=== PATIENT | female | born 2000 | race Caucasian/White ===

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

== ENCOUNTER → 2021-01-14 | Outpatient (CLI) | payer OTHER ==
[~2021-01-14] MED LIST changes: +METHACHOLINE KIT (J7674) INH ONE
--- NOTE | 2021-01-14 08:16 | PFTRPT ---
Height: 62.50 Inches Weight: 235.00 Lbs BSA: 2.06 Diagnosis: R06.02 DATE: 01/14/2021 ORDERED BY: Geetha Sheffield NP QUALITY: Study of excellent technical quality. PROCEDURE: Under protocol, methacholine was administered. At a dose of 2.5 mg or 13.875 CDUs, a 20% decline in the FEV1 was noted. PC of 2.17 is significant. Flow rates did return to baseline post bronchodilator administration. IMPRESSION: Positive methacholine challenge study. MTDD
--- NOTE | 2021-01-14 09:05 | REP ---
INDICATION: OTH ABN FINDINGS OF LUNG FIELD PT HAS METH 1ST THEN CT COMPARISON: None TECHNIQUE: Axial noncontrast images from the thoracic inlet to the upper abdomen with coronal and sagittal reformations. This CT examination was performed using the following dose reduction techniques: Automated exposure control, adjustment of mA and/or kv according to the patient's size, and use of iterative reconstruction technique. FINDINGS: The bilateral lung dawkins are well aerated, symmetric, and clear. No acute consolidation, nodule or mass. No pleural effusion or pneumothorax. Tracheobronchial tree is patent. No adenopathy. Thoracic aorta, pulmonary vasculature, and heart/pericardium appear normal. Surrounding musculoskeletal structures are intact. Limited upper abdomen demonstrates normal bilateral adrenal glands. IMPRESSION: No acute mediastinal or pleuroparenchymal process appreciated. <Electronically signed by Thomas Champion > 01/14/21 0902
== END ==
LOC: M CARPUL 07:36
PROVIDERS: ATTEND Nurse Practitioner Adult Health
DX: R06.02 Shortness of breath (principal); R91.8 Other nonspecific abnormal finding of lung field
CPT/HCPCS: 71250; 94070; 95070; J7674

== ENCOUNTER → 2021-02-26 | Outpatient (REF) | payer OTHER ==
[~2021-02-26] MED LIST changes: -METHACHOLINE KIT (J7674) INH ONE
== END ==
LOC: M LAB REF 19:41
PROVIDERS: ATTEND Physician Assistant
DX: N39.0 Urinary tract infection, site not specified (principal)

== ENCOUNTER → 2021-04-17 | Outpatient (CLI) | payer OTHER ==
--- NOTE | 2021-04-17 10:16 | REP ---
INDICATION: N92.6 IRREG MENSES. COMPARISON: None. TECHNIQUE: Multiple ultrasonographic images of the pelvis including transabdominal, endovaginal and Doppler assessment. FINDINGS: Bladder is adequately distended. The uterus is normal size measuring 8.9 x 2.9 x 3.3 cm. There is a 1 cm fibroid in the uterine fundus on the left. On transvaginal images a nova ring is identified surrounding the cervix. Right ovary: The right ovary measures 2.6 x 2.2 x 1.8 cm. There is no dominant mass or cyst. Left ovary: The left ovary measures 4.1 x 1.8 x 2.0 cm. There is no dominant mass or cyst. There is vascular flow in both ovaries. The Doppler resistive index in the parenchymal arteries of the right ovary 0.62 and left ovary 0.59. No free fluid in the pelvis. IMPRESSION: 1 cm uterine fibroid in the fundus on the left. There is an oval ring surrounding the cervix. The endometrium is unremarkable. Otherwise, negative pelvic ultrasound. <Electronically signed by Chele Lim > 04/17/21 1015
== END ==
LOC: M WHC 08:10
PROVIDERS: ATTEND Advanced Practice Midwife
DX: N92.6 Irregular menstruation, unspecified (principal); D25.9 Leiomyoma of uterus, unspecified; Z97.5 Presence of (intrauterine) contraceptive device

== ENCOUNTER → 2021-05-05 | Outpatient (CLI) | payer OTHER ==
[2021-05-05 18:09] LABS: HEMATOCRIT 41.8 % (36.0-47.0); HEMOGLOBIN 13.6 g/dl (12.0-15.5); MEAN CORPUSCULAR HEMOGLOBIN 27.8 pg (27.0-33.0); MEAN CORPUSCULAR HGB CONC 32.5 g/dl (32.0-36.5); MEAN CORPUSCULAR VOLUME 85.3 fl (80.0-96.0); PLATELET COUNT, AUTOMATED 374 10^3/uL (150-450); WHITE BLOOD COUNT 12.3 10^3/uL (4.0-10.0)
[2021-05-05 18:30] LABS: ALBUMIN 2.9 GM/DL (3.2-5.2); ALT/SGPT 17 U/L (12-78); BILIRUBIN,TOTAL 0.5 MG/DL (0.2-1.0); BLOOD UREA NITROGEN 12 MG/DL (7-18); CALCIUM LEVEL 9.1 MG/DL (8.5-10.1); CARBON DIOXIDE LEVEL 26 MEQ/L (21-32); CHLORIDE LEVEL 108 MEQ/L (98-107); CREATININE FOR GFR 0.72 MG/DL (0.55-1.30); GLUCOSE, FASTING 75 MG/DL (70-100); LIPASE 51 U/L (73-393); SODIUM LEVEL 139 MEQ/L (136-145); TOTAL PROTEIN 6.9 GM/DL (6.4-8.2)
== END ==
LOC: M LAB 16:45
PROVIDERS: ATTEND Physician Assistant
DX: R10.11 Right upper quadrant pain (principal); R19.7 Diarrhea, unspecified
CPT/HCPCS: 36415; 80053; 83690; 85027; U0003

== ENCOUNTER → 2021-05-07 | Outpatient (CLI) | payer OTHER ==
--- NOTE | 2021-05-07 07:57 | REP ---
INDICATION: RUQ PAIN. COMPARISON: COMPARISON IS MADE WITH IMAGES FROM CHEST CT JANUARY 14, 2021. TECHNIQUE: RIGHT UPPER QUADRANT SONOGRAPHY. FINDINGS: Scanning through the right upper quadrant of the abdomen demonstrates a normal sized, thin-walled gallbladder without evidence of stone or polyp. Common bile duct is normal measuring 4.6 cm in greatest diameter. No focal liver lesion is seen. Liver size is normal. No pancreatic abnormality is observed. No right renal abnormality is seen. There is no evidence of ascites. The right kidney measures 10.1 X 5.4 X 4.4 cm. IMPRESSION: Negative right upper quadrant sonography. <Electronically signed by Chip Paulino > 05/07/21 0756
== END ==
LOC: M RAD 06:42
PROVIDERS: ATTEND Physician Assistant
DX: R10.11 Right upper quadrant pain (principal)

== ENCOUNTER → 2021-05-13 | Outpatient (CLI) | payer OTHER ==
[~2021-05-13] MED LIST changes: +GASTROGRAFIN SOLUTION 30ML (Q9963) As Ordered ONE; +ISOVUE-370 76% 100ML VIAL As Ordered ONE
--- NOTE | 2021-05-13 14:06 | REP ---
INDICATION: RUQ PAIN COMPARISON: None. TECHNIQUE: CT Scan of the abdomen and pelvis was performed with intravenous administration of 100 cc of Isovue 370, and oral contrast. Sagittal and coronal reconstruction images are performed. FINDINGS: Lung bases: Unremarkable. Liver: Normal Gallbladder: Unremarkable. Spleen: Normal. Adrenals: Normal. Pancreas: Normal. Kidneys: Normal. Small and large bowel: Unremarkable. Free fluid: None. Abdominal aorta: No aneurysm or dissection. Adenopathy: None. Appendix: Not inflamed. Osseous structures: Unremarkable. Pelvis: No mass. Vaginal ring pessary is noted. IMPRESSION: Negative CT abdomen and pelvis. <Electronically signed by Chele Pabon > 05/13/21 0016
== END ==
LOC: M RAD 11:59
PROVIDERS: ATTEND Physician Assistant
DX: R10.11 Right upper quadrant pain (principal)
CPT/HCPCS: 74177; Q9963; Q9967

== ENCOUNTER → 2021-06-23 | Outpatient (CLI) | payer OTHER ==
[~2021-06-23] MED LIST changes: -GASTROGRAFIN SOLUTION 30ML (Q9963) As Ordered ONE; -ISOVUE-370 76% 100ML VIAL As Ordered ONE
--- NOTE | 2021-06-23 10:40 | REP ---
INDICATION: RUQ ABD PAIN. COMPARISON: Ultrasound 05/07/2021. TECHNIQUE/RADIOTRACER AND DOSE: FOLLOWING THE INTRAVENOUS ADMINISTRATION OF 6.4 MCI TECHNETIUM 99 M-MEBROFENIN, MULTIPLE IMAGES OF THE RIGHT UPPER QUADRANT ARE PERFORMED FOR 60 MINUTES. NEXT 8 OZ OF ENSURE ENLIVE IS INGESTED AND FURTHER IMAGING IS PERFORMED FOR 65 MINUTES. FINDINGS: THE GALLBLADDER IS VISUALIZED AT 15 MINUTES POST INJECTION. THERE IS BILIARY TO BOWEL TRANSIT AT 10MINUTES POST INJECTION. THERE IS NO SCINTIGRAPHIC EVIDENCE OF CHOLECYSTITIS. GALLBLADDER EJECTION FRACTION IS CALCULATED TO BE 18% WHICH IS below NORMAL value of greater than 35%. IMPRESSION: Low gallbladder ejection fraction of 18%. <Electronically signed by Chele Pabon > 06/23/21 0214
== END ==
LOC: M RAD 08:05
PROVIDERS: ATTEND Physician Assistant
DX: R10.11 Right upper quadrant pain (principal); K82.8 Other specified diseases of gallbladder
CPT/HCPCS: 78227; A9537

== ENCOUNTER → 2021-07-19 | Outpatient (CLI) | payer OTHER ==
[~2021-07-19] MED LIST changes: +ARNU1INH IN; +PROAAER10 INH; +SERT-141 PO
== END ==
LOC: M LABSMTC 10:04
PROVIDERS: ATTEND Anesthesiology
DX: Z01.812 Encounter for preprocedural laboratory examination (principal); Z20.822 Contact with and (suspected) exposure to COVID-19

== ENCOUNTER 2021-07-24 10:20 | Day surgery (SDC) | payer OTHER ==
[~2021-07-24] VITALS: Ht 157.5 cm; Wt 105.7 kg
[~2021-07-24 10:20] MED LIST changes: +CelecoXIB 400 MG CAP PO ONE; +INDOCYANINE GREEN 25MG VIAL (IC-GREEN) IV ONE; +LR 1,000 ML IV ONE; +LevoFLOXacin IV 500 MG in IV 1 EA IV ONE
--- OUTSIDE RECORDS SUMMARY | 2021-07-24 10:27 | CCD ---
Author Author [facility] Organization [facility] Address Unknown Phone Unavailable Care Team Providers Care Senior Court Office Assistant Name Role Phone Concetta Kearney Unavailable PROBLEMS Type Condition ICD9-CM Code DTR76-QH Code Onset Dates Condition S tatus W/U Status Risk SNOMED Code Notes Problem Amenorrhea N91.2 Active confirmed 25408032 Problem Irregular menses N92.6 Active confirmed 386 421134 Problem Anxiety disorder, unspecified F41.9 Active confirm ed 843622918 Problem Major depressive disorder, single episode, unspecified F32.9 Active confirmed 52643630 ALLERGIES Allergen (clinical drug ingredient) Drug/Non Drug Allergy do cumented on EMR Reaction Allergy Type Onset Date Status amoxicillin / clavulanate Augmentin([facility] Code:[address]-30) Naus ea/Vomiting Drug Allergy Active ENCOUNTERS from 2001 to 2021-05-22 Encounter Location Date Provider Diagnosis [address] [phone] [place] [address] May, Concetta Kearney Right upper quadrant abdomin al pain R10.11 IMMUNIZATIONS No Information SOCIAL HISTORY Tobacco Use: Social History Observation Description Date Details (start date - stop date) Never Smoker Sex Assigned At : Social History Observation Description Sex Assigned At Unknown Education: Question Answer Notes Level of Education: High School Audit Question Answer Notes Total Score: 0 Interpretation: Alcohol Education Drug and Alcohol Question Answer Notes Total Score: 0 Interpretation: No problems reported Alcohol Screening: Question Answer Notes Did you have a drink containing alcohol in the past year? No Points 0 Interpretation Negative BMI Care Goal Follow-Up Question Answer Notes Above Normal BMI Follow-Up Giving encouragement to exercise Tobacco Use: Question Answer Notes Are you a: never smoker REASON FOR REFERRAL No Information VITAL SIGNS No information MEDICATIONS Medication SIG (Take, Route, Frequency, Duration) Notes Start Da te End Date Status Arnuity Ellipta 100 MCG/ACT 1 puff Inhalation Once a day Active NuvaRing 0.12-0.015 MG/24HR [address] for 3 weeks, remove, and replace with a new ring after 7 day break Vaginal for 28 day(s) Dec, Active Sertraline HCl 50 MG 1 tablet Orally Once a day for 30 Active Provera 5 MG 1 tablet Orally Once daily at bedtime for 10 days Dec, Not-Taking Zofran ODT 4 MG 1 tablet on the tongue and a llow to dissolve Orally every 8 hrs prn for 4 days Dec, Not-Taking Flonase Allergy Relief 50 MCG/ACT 2 sprays each nostri l Nasally Once a day for 10 days Dec, Not-Taking Albuterol Sulfate HFA 108 (90 Base) MCG/ACT 1 puff as needed Inhalation every 4 hrs for 31 Active PROCEDURES No Information RESULTS No Results REASON FOR VISIT CT scan MEDICAL (GENERAL) HISTORY Type Description Date Medical History GERD Medical History Anxiety and Depression Medical History loose ligaments in R ankle Medical History asthma Surgical History ankle surgery 05/26 Hospitalization History suicide attempt- SL x 1 week 02/2019 Goals Section No Information Health Concerns No Information MEDICAL EQUIPMENT No Information MENTAL STATUS No Information FUNCTIONAL STATUS No Information ASSESSMENTS Encounter Date Diagnosis Assessment Notes Treatment Notes Treatm ent Clinical Notes May, Right upper quadrant abdominal pain (ICD-10 - R1 0.11) PLAN OF TREATMENT Future Test Test Name Order Date [facility] NM-Gall Bladder(Hida Scan) w/Ejection Fxs [id number] Next Appt Details Provider Name:Nina Christie, 2021-06-12 01:40:00 PM, [address] [place] [address], , [place], [address], Provider Name:Lissette Gaspar, 09:00:00 AM, [address] [place] [address], , [place], [address], Insurance Providers Payer Name Payer Address Payer Phone Insured Name Patient Relati onship to Insured Coverage Start Date Coverage End Date [facility] COMMUN[employer] PLAN [facility] [address] [facility] [phone] THA SALCEDO self
--- OUTSIDE RECORDS SUMMARY | 2021-07-24 10:27 | CCD | Continuity of Care Document ---
Author Author CÉSAR LAND, Nica Valdes Organization Unknown Address [address] [facility] [address] [place] [address] Phone [phone] Care Team Providers Care Well Service Derrick Worker Name Role Phone Caio Concetta Brigitte Bar AUTM [phone] AUTM Unavailable Lissette Gaspar R.N. AUTM [phone] AUTM Unavailable Problems Active Problems Provider Date Mild persistent asthma Geetha Sheffield, A.N.P. Onset: 01/15/2021 Cough Geetha Sheffield, A.N.P. Onset: 12/18/2020 Dyspnea Geetha Sheffield, A.N.P. Onset: 12/18/2020 Social History Type Date Description Comments Sex Unknown ETOH Use Denies alcohol use Tobacco Use Reviewed: 01/15/21 Patient has never smoked expo sed to vape pens Recreational Drug Use Denies Drug Use Smoking Status Reviewed: 02/19/21 Patient has never smoked expo sed to vape pens Allergies and adverse reactions Active Allergies Criticality Reaction | Severity Comments Date Augmentin Unable to assess criticality vomiting 12/18/2020 Medications Active Medications SIG Qnty Indications Ordering Provide r Date Arnuity Ellipta 100mcg/Act Aerosol inhale one puff by mouth every day 30units J45.30 Geetha Sheffield, A.N.P. 0 01/15/2021 Sertraline HCL 50mg Tablets 1 tab by mouth every day Unknown Albuterol Sulfate HFA 108(90Base) mcg/Act Aerosol inhale two puffs by mouth every 6 hours as needed 8.5units Geetha Sheffield, A.N.P. Immunizations Description No Information Available Vital Signs Date Vital Result Comment 07/03/2021 12:57pm BP Systolic 171 mmHg BP Diastolic 94 mmHg Body Temperature 98.0 F Height 62.5 inches 5'2.50" Weight 232.00 lb BMI (Body Mass Index) 41.8 kg/m2 [place] Body Weight 110 lb Weight 105.235 kg Weight Percentile >97th Height Percentile 24 % BSA (Body Surface Area) 2.05 m2 02/19/2021 7:58am BP Systolic 122 mmHg BP Diastolic 68 mmHg Heart Rate 76 /min O2 % BldC Oximetry 97 % Height 62.5 inches 5'2.50" Weight 234.00 lb BMI (Body Mass Index) 42.1 kg/m2 [place] Body Weight 110 lb Asthma Control Test 19 Weight 106.142 kg Weight Percentile >97th Height Percentile 24 % BSA (Body Surface Area) 2.06 m2 Results Test Acquired Date Facility Test Result H/L Range Note FVL/Fredy 02/19/2021 [facility] SEE IMAGE FVC-Pred 3.60 L FVC-Pre 3.54 L FVC-%Pred-Pre 98 L FVC-LLN 2.93 L Fev1-Pred 3.19 L Fev1-Pre 3.11 L Fev1-%Pred-Pre 97 L Fev1-LLN 2.63 L Fev6-Pred 3.61 L Fev6-Pre 3.53 L Fev6-%Pred-Pre 97 L Fev6-LLN 2.96 L Jnv2ntb-Xpxg 87 % Mka8tsy-Shu 88 % Kdo9svh-%Pred-Pre 101 % Dpx0puy-ROA 77 % Mhc3khj-Duzl 101 % Gwg0knj-Ngr 100 % Xfr5jxu-%Pred-Pre 99 % FEFMax-Pred 6.56 L/E/sec FEFMax-Pre 5.91 L/E/sec FEFMax-%Pred-Pre 90 L/E/sec FEFMax-LLN 4.93 L/E/sec Pdz1993-Rhqt 3.69 L/E/sec Qog9245-Ptt 3.99 L/E/sec Xuj5495-%Pred-Pre 108 L/E/sec Hyn5266-EFK 2.51 L/E/sec ExpTime-Pre 7.41 sec Sfp9ckd0-Qbes 87 % Wly5abx9-Fsp 88 % Nzw2jyt7-%Pred-Pre 101 % Nfn4fuv2-LOY 78 % Procedures Date Code Description Status 02/19/2021 97427 Office/Outpatient Established Lo w MDM 20-29 Min Completed 02/19/2021 97515 Spirometry Completed 01/15/2021 70711 Office/Outpatient Established Mo d MDM 30-39 Min Completed 01/15/2021 35947 Inhaler Teaching Completed 01/10/2021 66008 Diffusing Capacity Completed 01/10/2021 16344 Plethysmography Determination Kaylah ng Volumes & Per Airway Resist Completed 01/10/2021 81237 Bronchospasm Evaluation Complete d Medical Devices Description No Information Available Encounters Type Date Location Provider Dx Diagnosis Office Visit 02/19/2021 8:00a [facility] Pulmonary/Thoracic Geetha To xavier A.N.P. J45.30 Mild persistent asthma, uncomplicated Office Visit 01/15/2021 8:00a [facility] Pulmonary/Thoracic Geetha To xavier A.N.P. J45.30 Mild persistent asthma, uncomplicated Assessments Date Code Description Provider 02/19/2021 J45.30 Mild persistent asthma, uncompli cated Geetha Sheffield, A.N.P. 01/15/2021 J45.30 Mild persistent asthma, uncompli cated Geetha Sheffield, A.N.P. 01/10/2021 R06.02 Shortness of breath Pulmonary La b Plan of Treatment Future Appointment(s):* 08/05/2021 8:45 am - Jose Elias Almaguer M.D. at [facility] * 07/24/2021 4:00 pm - Thor Pierson MD at [facility] * 09/10/2021 8:00 am - Geetha Sheffield, A.N.P. at [facility] Pulmonary/Thoracic 02/19/2021 - Geetha Sheffield, A.N.P.* J45.30 Mild persistent asthma, uncomplicated * * New Labs:* FVL/Fredy, Scheduled: 09/10/21 * Follow up:* 1. Follow up visit in 6 months with fvl/spirometry. Functional Status Description No Information Available Mental Status Mental Condition Comment Date Status Cognitive ability not impaired A ctive Referrals Refer to Reason for Referral Status Appt Date Thor Pierson MD RUQ PAIN/GALLBLADDER Scheduled 06/07 6 [facility] [address] [place] [address] [phone]
--- OUTSIDE RECORDS SUMMARY | 2021-07-24 10:27 | CCD | Continuity of Care Document ---
Author Author CÉSAR LAND, Nica Valdes Organization Unknown Address [address] [facility] [address] [place] [address] Phone [phone] Care Team Providers Care Manager Floral Name Role Phone Caio Concetta Brigitte Bar AUTM [phone] AUTM Unavailable Lissette Gaspar R.N. AUTM [phone] AUTM Unavailable Problems Active Problems Provider Date [...] lb BMI (Body Mass Index) 41.8 kg/m2 [place] Body Weight 110 lb Weight 105.235 kg Weight Percentile >97th Height Percentile 24 % BSA (Body Surface Area) 2.05 m2 02/19/2021 7:58am BP Systolic 122 mmHg BP Diastolic 68 mmHg Heart Rate 76 /min O2 % BldC Oximetry 97 % Height 62.5 inches 5'2.50" Weight 234.00 lb BMI (Body Mass Index) 42.1 kg/m2 [place] Body Weight 110 lb Asthma Control Test [...] L Fev6-%Pred-Pre 97 L Fev6-LLN 2.96 L Vjy1wgu-Liof 87 % Mzn7amh-Cpy 88 % Jxm8bzz-%Pred-Pre 101 % Gtu6rmm-FHN 77 % Kre1huc-Excm 101 % Lem6hgg-Yqk 100 % Ftw6oly-%Pred-Pre 99 % FEFMax-Pred 6.56 L/E/sec FEFMax-Pre 5.91 L/E/sec FEFMax-%Pred-Pre 90 L/E/sec FEFMax-LLN 4.93 L/E/sec Lez9120-Gkuv 3.69 L/E/sec Njp8820-Nyk 3.99 L/E/sec Auj4006-%Pred-Pre 108 L/E/sec Tyg9683-ULK 2.51 L/E/sec ExpTime-Pre 7.41 sec Lzd4tkm7-Ncnz 87 % Mhd5jqa2-Twz 88 % Gnr8hon1-%Pred-Pre 101 % Ivs9acy1-KIK 78 % Procedures Date Code Description Status 07/03/2021 04148 Office/Outpatient New Moderate M DM 45-59 Minutes Completed 02/19/2021 70939 Office/Outpatient Established Lo w MDM 20-29 Min Completed 02/19/2021 88406 Spirometry Completed 01/15/2021 58141 Office/Outpatient Established Mo d MDM 30-39 Min Completed 01/15/2021 71135 Inhaler Teaching Completed 01/10/2021 18436 Diffusing Capacity Completed 01/10/2021 04504 Plethysmography Determination Kaylah ng Volumes & Per Airway Resist Completed 01/10/2021 94644 Bronchospasm Evaluation Complete d Medical Devices Description No Information Available Encounters Type Date Location Provider Dx Diagnosis Office Visit 07/03/2021 1:00p [facility] Ace Pierson MD K82.8 Other specified diseases of gallbladder Office Visit 02/19/2021 8:00a [facility] Pulmonary/Thoracic Geetha To xavier, A.N.P. J45.30 Mild persistent asthma, uncomplicated Office Visit 01/15/2021 8:00a [facility] Pulmonary/Thoracic Geetha To xavier A.N.P. J45.30 Mild persistent asthma, uncomplicated Assessments Date Code Description Provider 07/03/2021 K82.8 Disorder of gallbladder Thor Pierson MD 02/19/2021 J45.30 Mild persistent asthma, uncompli cated Geetha Sheffield, A.N.P. 01/15/2021 J45.30 Mild persistent asthma, uncompli cated Geetha Sheffield, A.N.P. 01/10/2021 R06.02 Shortness of breath Pulmonary La b Plan of Treatment Future Appointment(s):* 08/05/2021 8:45 am - Jose Elias Almaguer M.D. at [facility] * 07/24/2021 4:00 pm - Thor Pierson MD at [facility] * 09/10/2021 8:00 am - Brigitte Payan.N.PMartha at [facility] Pulmonary/Thoracic 07/03/2021 - Thor Pierson MD* K82.8 Disorder of gallbladder* Comments:* 1. Discussed with patient results of HIDA scan and its clinical implications. 2. Discussed treatment options: laparoscopic cholecystectomy. Outcomes on patients with typical GB pain syndromes show pain relief in 9/10 patients with abnormal HIDA scan. Patients with atypical symptoms show relief in 5-6/10 patients with abnormal HIDA scan. Thus, patient aware that doing cholecystectomy may not totally alleviate symptoms. Patient understands and is willing to proceed.Some of her symptoms seems to be biliary in nature especially postprandial nature though some of it could possibly be irritable bowel type with relief of the discomfort with bowel movements as well as urged to go to the bathroom with the abdominal discomfort. She had a normal gallbladder ultrasound study and the low ejection fraction study and HIDA scan with EF. Some of patients with abnormal HIDA scan has some sort of cholecystitis even very small cholelith causing him symptoms and they do respond to cholecystectomy. A portion of it may not respond to cholecystecto my. Especially with her no stones or any anatomic abnormalities found on the pathology. I have informed patient this and given the length of her symptoms as well as how this was affecting her, she has consented to cholecystectomy knowing this information. Thus we will schedule her for robotic assisted laparoscopic cholecystectomy.I discussed with the patient the details of the proposed procedure, the benefits of performing the procedure, the most common risks on doing the procedure. This may include risks of general anesthesia, risks of the surgery including bowel and vascular injuries, bile duct injury, bile leakage. Functional Status Description No Information Available Mental Status Mental Condition Comment Date Status Cognitive ability not impaired A ctive Referrals Refer to Reason for Referral Status Appt Date Thor Pierson MD RUQ PAIN/GALLBLADDER Scheduled 06/[address] [place] [address] [phone]
--- OUTSIDE RECORDS SUMMARY | 2021-07-24 10:27 | CCD ---
Author Author [facility] Organization [facility] Address Unknown Phone Unavailable Care Team Providers Care Facility Technician Name Role Phone Concetta Kearney Unavailable PROBLEMS Type Condition ICD9-CM Code ACC51-JX Code Onset Dates Condition S tatus W/U Status Risk SNOMED Code Notes Problem Amenorrhea N91.2 Active confirmed 47712386 Problem Irregular menses N92.6 Active confirmed 386 765347 Problem Anxiety disorder, unspecified F41.9 Active confirm ed 405344609 Problem Major depressive disorder, single episode, unspecified F32.9 Active confirmed 73211118 ALLERGIES Allergen (clinical drug ingredient) Drug/Non Drug Allergy do cumented on EMR Reaction Allergy Type Onset Date Status amoxicillin / clavulanate Augmentin([facility] Code:[address]-11) Naus ea/Vomiting Drug Allergy Active ENCOUNTERS from 2001 to 2021-05-08 Encounter Location Date Provider Diagnosis [address] [phone] [place] [address] May, Concetta Caio IMMUNIZATIONS No Information SOCIAL HISTORY Tobacco Use: [...] Notes Start Da te End Date Status Flonase Allergy Relief 50 MCG/ACT 2 sprays each nostri l Nasally Once a day for 10 days Dec, Not-Taking Sertraline HCl 50 MG 1 tablet Orally Once a day for 30 Active Albuterol Sulfate HFA 108 (90 Base) MCG/ACT 1 puff as needed Inhalation every 4 hrs for 31 Active Zofran ODT 4 MG 1 tablet on the tongue and a llow to dissolve Orally every 8 hrs prn for 4 days Dec, Not-Taking Provera 5 MG 1 tablet Orally Once daily at bedtime for 10 days Dec, Not-Taking Arnuity Ellipta 100 MCG/ACT 1 puff Inhalation Once a day Active NuvaRing 0.12-0.015 MG/24HR [address] for 3 weeks, remove, and replace with a new ring after 7 day break Vaginal for 28 day(s) Dec, Active PROCEDURES No Information RESULTS No Results REASON FOR VISIT U/S and blood work results MEDICAL (GENERAL) HISTORY Type Description Date Medical History GERD Medical History Anxiety and Depression Medical History loose ligaments in R ankle Medical History asthma Surgical History ankle surgery 05/26 Hospitalization History suicide attempt- SL x 1 week 02/2019 Goals Section No Information Health Concerns No Information MEDICAL EQUIPMENT No Information MENTAL STATUS No Information FUNCTIONAL STATUS No Information ASSESSMENTS No Information PLAN OF TREATMENT Next Appt Details Provider Name:Nina Mike Genevievepeggy, 2021-06-12 01:40:00 PM, [address] [facility], , [place], [address], Insurance Providers Payer Name Payer Address Payer Phone Insured Name Patient Relati onship to Insured Coverage Start Date Coverage End Date [facility] COMMUN[facility] PLAN [facility] [address] [facility] [phone] THA SALCEDO self
--- OUTSIDE RECORDS SUMMARY | 2021-07-24 10:27 | CCD ---
Author Author [facility] Organization [facility] Address Unknown Phone Unavailable Care Team Providers Care Graduate Recruiter Name Role Phone Lissette Gaspar Unavailable PROBLEMS ALLERGIES ENCOUNTERS from 2001 to 2021-07-22 IMMUNIZATIONS SOCIAL HISTORY REASON FOR REFERRAL No Information VITAL SIGNS MEDICATIONS PROCEDURES No Information RESULTS No Results REASON FOR VISIT MEDICAL (GENERAL) HISTORY Goals Section Health Concerns MEDICAL EQUIPMENT No Information MENTAL STATUS FUNCTIONAL STATUS ASSESSMENTS No Information PLAN OF TREATMENT Insurance Providers
--- OUTSIDE RECORDS SUMMARY | 2021-07-24 10:27 | CCD ---
Author Author [facility] Organization [facility] Address Unknown Phone Unavailable Care Team Providers Care Windows Architect Name Role Phone Concetta Kearney Unavailable PROBLEMS Type Condition ICD9-CM Code [id number] Code Onset Dates Condition S tatus W/U Status Risk SNOMED Code Notes Problem Amenorrhea N91.2 Active confirmed 27690334 Problem Irregular menses N92.6 Active confirmed 386 868305 Problem Anxiety disorder, unspecified F41.9 Active confirm ed 538323166 Problem Major depressive disorder, single episode, unspecified F32.9 Active confirmed 82714165 ALLERGIES Allergen (clinical drug ingredient) Drug/Non Drug Allergy do cumented on EMR Reaction Allergy Type Onset Date Status amoxicillin / clavulanate Augmentin([facility] Code:[address]-89) Naus ea/Vomiting Drug Allergy Active ENCOUNTERS from 2001 to 2021-05-31 Encounter Location Date Provider Diagnosis [address] [phone] [place] [address] May, Concetta Kearney Right upper quadrant abdomin [...] REASON FOR REFERRAL No Information VITAL SIGNS Weight 241.8 lbs May, Weight-kg 109.68 kg May, Height 60 in May, BMI 47.22 kg/m2 May, Heart Rate 87 /min May, Respiratory Rate 18 /min May, Temperature 97.0 degrees Fahrenheit May, Oximetry 100 May, Blood pressure systolic 128 mm Hg May, Blood pressure diastolic 80 mm Hg May, MEDICATIONS Medication SIG (Take, Route, Frequency, Duration) [...] Information RESULTS No Results REASON FOR VISIT f/u stomach issues MEDICAL (GENERAL) HISTORY Type Description Date Medical [...] quadrant abdominal pain (ICD-10 - R1 0.11) patient to continue the BRAT diet will order a stat CT abd and pelvis today to look for abnormality will consider HIDA scan if CT negative PLAN OF TREATMENT Treatment Notes Assessment Notes Clinical Notes Right upper quadrant abdominal pain jayme ent to continue the BRAT dietwill order a stat CT abd and pelvis today to look for abnormalitywill consider HIDA scan if CT negative Future Test Test Name Order Date CT ABD/PEL w/IV & Oral Contrast [id number] Next Appt Details prn Reason: Provider Name:Nina Vallejopeggy, 2021-06-12 01:40:00 PM, [address] [place] [address], , [place], [address], Provider Name:Lissette Gaspar, 09:00:00 AM, [address] [facility], , [place], [address], Insurance Providers Payer Name Payer Address Payer Phone Insured Name Patient Relati onship to Insured Coverage Start Date Coverage End Date [facility] COMMUNITY PLAN [facility] [address] [facility] [phone] THA SALCEDO self
--- OUTSIDE RECORDS SUMMARY | 2021-07-24 10:27 | CCD ---
Author Author [facility] Organization [facility] Address Unknown Phone Unavailable Care Team Providers Care Product Blending Supervisor Name Role Phone AndieageLissette Unavailable PROBLEMS Type Condition ICD9-CM Code [id number] Code Onset Dates Condition S tatus W/U Status Risk SNOMED Code Notes Problem Amenorrhea N91.2 Active confirmed 79924735 Problem Irregular menses N92.6 Active confirmed 386 268589 Problem Anxiety disorder, unspecified F41.9 Active confirm ed 988750049 Problem Major depressive disorder, single episode, unspecified F32.9 Active confirmed 75183434 ALLERGIES Allergen (clinical drug ingredient) Drug/Non Drug Allergy do cumented on EMR Reaction Allergy Type Onset Date Status amoxicillin / clavulanate Augmentin([facility] Code:[address]-70) Naus ea/Vomiting Drug Allergy Active ENCOUNTERS from 2001 to 2021-06-26 Encounter Location Date Provider Diagnosis [address] [phone] [place] [address] Jun, Lissette Servage Right upper quadrant abdomin al pain R10.11 IMMUNIZATIONS Vaccine Route Administration Date Status Influenza Pharmacy Given Unknown Jun 09, 2021 Adminis tered SOCIAL HISTORY Tobacco Use: Social History Observation [...] you a: never smoker REASON FOR REFERRAL from 2001 to 2021-06-26 Reason Please eval and treat patien t, with decrease gallbladder EF of 18% and right upper quadrant discomfort thank you Diagnosis 1 Right upper quadrant abdomin al pain (R10.11) Referral Organization [facility] Referring Provider First Name Lissette Referring Provider Last Name Chasity Referring Provider Specialty Family Medicine Referred Provider Chele Keys Referral Priority Routine General Notes ArtRupa dillardar 06/26/2021 1: 17:00 PM > referral faxed VITAL SIGNS No information MEDICATIONS Medication SIG [...] Once daily at bedtime for 10 days 15 Dec, 2020 Not-Taking Zofran ODT 4 MG 1 tablet [...] Information RESULTS No Results REASON FOR VISIT test MEDICAL (GENERAL) HISTORY Type Description Date Medical [...] Notes Treatment Notes Treatm ent Clinical Notes Jun, Right upper quadrant abdominal pain (ICD-10 - R1 0.11) PLAN OF TREATMENT Referrals Referral Date Details Please eval and treat patien t, with decrease gallbladder EF of 18% and right upper quadrant discomfort thank you, Chele Keys Next Appt Details Provider Name:Lissette Gaspar, 09:00:00 AM, [address] [facility], , [place], [address], Insurance Providers Payer Name Payer Address Payer Phone Insured Name Patient Relati onship to Insured Coverage Start Date Coverage End Date [facility] COMMUNITY PLAN [facility] [address] [facility] [phone] THA SALCEDO self
--- OUTSIDE RECORDS SUMMARY | 2021-07-24 10:27 | CCD ---
Author Author [facility] Organization [facility] Address Unknown Phone Unavailable Care Team Providers Care Shear Operator Helper Name Role Phone Concetta Kearney Unavailable PROBLEMS Type Condition ICD9-CM Code FOS55-MK Code Onset Dates Condition S tatus W/U Status Risk SNOMED Code Notes Problem Amenorrhea N91.2 Active confirmed 89618331 Problem Irregular menses N92.6 Active confirmed 386 250982 Problem Anxiety disorder, unspecified F41.9 Active confirm ed 374843292 Problem Major depressive disorder, single episode, unspecified F32.9 Active confirmed 42872735 ALLERGIES Allergen (clinical drug ingredient) Drug/Non Drug Allergy do cumented on EMR Reaction Allergy Type Onset Date Status amoxicillin / clavulanate Augmentin([facility] Code:[address]-19) Naus ea/Vomiting Drug Allergy Active ENCOUNTERS from 2001 to 2021-05-31 Encounter Location Date Provider Diagnosis [address] [phone] [place] [address] Apr, Concetta Kearney Right upper quadrant abdomin al pain R10.11 and Diarrhea, unspecified type R19.7 IMMUNIZATIONS No Information SOCIAL HISTORY Tobacco Use: [...] FOR REFERRAL No Information VITAL SIGNS Weight 237 lbs Apr, Weight-kg 107.5 kg Apr, Height 60 in Apr, BMI 46.28 kg/m2 Apr, Heart Rate 112 /min Apr, Respiratory Rate 18 /min Apr, Temperature 98.1 degrees Fahrenheit Apr, Oximetry 98 Apr, Blood pressure systolic 130 mm Hg Apr, Blood pressure diastolic 80 mm Hg Apr, MEDICATIONS Medication SIG (Take, Route, Frequency, Duration) [...] for 31 Active PROCEDURES No Information RESULTS Component Value Reference Range CBC - Complete Blood Count Reviewed date:05/09/2021 07:44:17 Interpretation: Performing Lab:[facility], [facility] [address] [facility] [id number] , ,[place] [address] WHITE BLOOD COUNT 12.3 4.0-10.0 RED BLOOD COUNT 4.90 4.00-5.40 HEMOGLOBIN 13.6 12.0-15.5 HEMATOCRIT 41.8 36.0-47.0 MEAN CORPUSCULAR VOLUME 85.3 80.0-96.0 MEAN CORPUSCULAR HEMOGLOBIN 27.8 27.0-33.0 MEAN CORPUSCULAR HGB CONC 32.5 32.0-36.5 RED CELL DISTRIBUTION WIDTH 13.1 11.5-14.5 PLATELET COUNT, AUTOMATED 374 150-450 Comprehensive Metabolic Profile (CMP) Reviewed date:05/09/2021 07:44:17 Interpretation: Performing Lab:[facility], [facility] [address] [facility] [address] , ,[facility] GLUCOSE, FASTING 75 70-100 BLOOD UREA NITROGEN 12 7-18 CREATININE FOR GFR 0.72 0.55-1.30 SODIUM LEVEL 139 136-145 POTASSIUM SERUM 4.0 3.5-5.1 CHLORIDE LEVEL 108 98-107 CARBON DIOXIDE LEVEL 26 21-32 CALCIUM LEVEL 9.1 8.5-10.1 AST/SGOT 9 7-37 ALT/SGPT 17 12-78 ALKALINE PHOSPHATASE 119 45-117 BILIRUBIN,TOTAL 0.5 0.2-1.0 TOTAL PROTEIN 6.9 6.4-8.2 ALBUMIN 2.9 3.2-5.2 ALBUMIN/GLOBULIN RATIO 0.7 1.2-2.2 LIPASE Reviewed date:05/09/2021 07:44:17 Interpretation: Performing Lab:[facility] the [facility] [address] [facility] [address] , ,[place] [address] LIPASE 51 73-393 Coronavirus 2019 Nasopharygeal (Send Out ) COVID Reviewed date:05/09/2021 07:44:17 Interpretation: Performing Lab:[facility], [facility] [address] [place] [address] [facility] [id number] , ,[place] [address] KESHIA COVID AG (Point of Care) Reviewed date:05/27/2021 15:35:17 Interpretation: Performing Lab:[facility], ,[place] [address] KESHIA COVID ANTIGEN neg REASON FOR VISIT nausea and diarrhea x 1 month MEDICAL (GENERAL) HISTORY Type Description Date Medical [...] Notes Treatment Notes Treatm ent Clinical Notes Apr, Right upper quadrant abdominal pain (ICD-10 - R1 0.11) COVID-19 rapid test negetive in the office today ?cholecystitis vs gastroenteritis will get labs for patient will get STAT RUQ ultrasound symptomatic treatment with BRAT diet, gatorade and other fluids if fever or symptoms worsen she should to go the ER for evaluation, patient verbalized understanding Apr, Diarrhea, unspecified type (ICD-10 - R19.7) Apr, Other Total time spen t with the patient on the day of the encounter: 25 minutes PLAN OF TREATMENT Treatment Notes Assessment Notes Clinical Notes Right upper quadrant abdominal pain COVI D-19 rapid test negetive in the office today?cholecystitis vs gastroenteritiswill get labs for patientwill get STAT RUQ ultrasoundsymptomatic treatment with BRAT diet, gatorade and other fluidsif fe jody or symptoms worsen she should to go the ER for evaluation, patient verbalized understanding Future Test Test Name Order Date PLZ GALLBLADDER U/S [id number] Next Appt Details prn Reason: Provider Name:Nina Christie, 2021-06-12 01:40:00 PM, [address] [place] [address] , [place], [address], Provider Name:Lissette Gaspar, 09:00:00 AM, [address] [place] [address] , [place], [address], Insurance Providers Payer Name Payer Address Payer Phone Insured Name Patient Relati onship to Insured Coverage Start Date Coverage End Date [facility] COMMUNITY PLAN [facility] [address] [facility] [phone] THA SALCEDO self
--- OUTSIDE RECORDS SUMMARY | 2021-07-24 10:27 | CCD | Continuity of Care Document ---
Author Author CÉSAR LAND, Nica Valdes Organization Unknown Address [address] [facility] [address] [place] [address] Phone [phone] Care Team Providers Care Bill Adjuster Name Role Phone Caio Concetta Brigitte Bar AUTM [phone] AUTM Unavailable Lissette Gaspar R.N. AUTM [phone] AUTM Unavailable Problems Active Problems Provider Date [...] lb BMI (Body Mass Index) 41.8 kg/m2 [place] Body Weight 110 lb Weight 105.235 kg Weight Percentile >97th Height Percentile 24 % BSA (Body Surface Area) 2.05 m2 02/19/2021 7:58am BP Systolic 122 mmHg BP Diastolic 68 mmHg Heart Rate 76 /min O2 % BldC Oximetry 97 % Height 62.5 inches 5'2.50" Weight 234.00 lb BMI (Body Mass Index) 42.1 kg/m2 [place] Body Weight 110 lb Asthma Control Test [...] L Fev6-%Pred-Pre 97 L Fev6-LLN 2.96 L Jwj6izf-Cklc 87 % Vog7njh-Gbi 88 % Fqb5ziy-%Pred-Pre 101 % Asr5kpj-UUA 77 % Hyu1crd-Fmek 101 % Vkk6sgn-Viz 100 % Gvn1nci-%Pred-Pre 99 % FEFMax-Pred 6.56 L/E/sec FEFMax-Pre 5.91 L/E/sec FEFMax-%Pred-Pre 90 L/E/sec FEFMax-LLN 4.93 L/E/sec Dmt6392-Bfux 3.69 L/E/sec Qvz2508-Zbm 3.99 L/E/sec Phj0130-%Pred-Pre 108 L/E/sec Vne3816-YST 2.51 L/E/sec ExpTime-Pre 7.41 sec Rqb1nox2-Nmou 87 % Bbo4uia1-Ajv 88 % Suq1kce9-%Pred-Pre 101 % Mli9xmc8-XEQ 78 % Procedures Date Code Description Status 02/19/2021 50589 Office/Outpatient Established Lo w MDM 20-29 Min Completed 02/19/2021 84593 Spirometry Completed 01/15/2021 26671 Office/Outpatient Established Mo d MDM 30-39 Min Completed 01/15/2021 32699 Inhaler Teaching Completed 01/10/2021 66548 Diffusing Capacity Completed 01/10/2021 89649 Plethysmography Determination Kaylah ng Volumes & Per Airway Resist Completed 01/10/2021 11475 Bronchospasm Evaluation Complete d Medical Devices Description No Information Available Encounters Type Date Location Provider Dx Diagnosis Office Visit 02/19/2021 8:00a [facility] Pulmonary/Thoracic Geetha To xavier A.N.P. J45.30 Mild persistent asthma, uncomplicated Office Visit 01/15/2021 8:00a [facility] Pulmonary/Thoracic Geetha To xavier A.N.P. J45.30 Mild persistent asthma, uncomplicated Assessments Date Code Description Provider 02/19/2021 J45.30 Mild persistent asthma, uncompli cated Geetha Sheffield, A.N.P. 01/15/2021 J45.30 Mild persistent asthma, uncompli cated Geetha Sheffield, A.N.P. 01/10/2021 R06.02 Shortness of breath Pulmonary La b Plan of Treatment Future Appointment(s):* 08/05/2021 8:45 am - Jose Elias Almaguer M.D. at [facility] * 07/24/2021 4:00 pm - Thor Pierson MD at [facility] * 09/10/2021 8:00 am - Geetha Sheffield, A.N.P. at [facility] Pulmonary/Thoracic 02/19/2021 - Geetha Sheffield, A.N.P.* J45.30 [...] Pierson MD RUQ PAIN/GALLBLADDER Scheduled 06/07 6 [facility] [address] [place] [address] [phone]
--- OUTSIDE RECORDS SUMMARY | 2021-07-24 10:27 | CCD | Continuity of Care Document ---
Author Author CÉSAR LAND, Nica Valdes Organization Unknown Address [address] [facility] [address] [place] [address] Phone [phone] Care Team Providers Care Engraver Ornamental Design Name Role Phone Caio Concetta Brigitte Bar AUTM [phone] AUTM Unavailable Lissette Gaspar R.N. AUTM [phone] AUTM Unavailable Problems Active Problems Provider Date [...] lb BMI (Body Mass Index) 41.8 kg/m2 [place] Body Weight 110 lb Weight 105.235 kg Weight Percentile >97th Height Percentile 24 % BSA (Body Surface Area) 2.05 m2 02/19/2021 7:58am BP Systolic 122 mmHg BP Diastolic 68 mmHg Heart Rate 76 /min O2 % BldC Oximetry 97 % Height 62.5 inches 5'2.50" Weight 234.00 lb BMI (Body Mass Index) 42.1 kg/m2 [place] Body Weight 110 lb Asthma Control Test [...] L Fev6-%Pred-Pre 97 L Fev6-LLN 2.96 L Gtu6fdb-Smjs 87 % Vxm1agy-Twe 88 % Tpk5ghw-%Pred-Pre 101 % Pri4vqq-GVT 77 % Rfe4xzd-Xqoa 101 % Fjj3dch-Pvu 100 % Cmx4bda-%Pred-Pre 99 % FEFMax-Pred 6.56 L/E/sec FEFMax-Pre 5.91 L/E/sec FEFMax-%Pred-Pre 90 L/E/sec FEFMax-LLN 4.93 L/E/sec Skt0884-Giwg 3.69 L/E/sec Nze9642-Njd 3.99 L/E/sec Ylh3724-%Pred-Pre 108 L/E/sec Fbc8202-BQY 2.51 L/E/sec ExpTime-Pre 7.41 sec Vmt5ged7-Qwsk 87 % Bbo5xwb3-Xtf 88 % Hqr1kbs7-%Pred-Pre 101 % Qdj6pjm9-GZB 78 % Procedures Date Code Description Status 02/19/2021 52347 Office/Outpatient Established Lo w MDM 20-29 Min Completed 02/19/2021 94726 Spirometry Completed 01/15/2021 09707 Office/Outpatient Established Mo d MDM 30-39 Min Completed 01/15/2021 36942 Inhaler Teaching Completed 01/10/2021 44441 Diffusing Capacity Completed 01/10/2021 66128 Plethysmography Determination Kaylah ng Volumes & Per Airway Resist Completed 01/10/2021 30291 Bronchospasm Evaluation Complete d Medical Devices Description No Information Available Encounters Type Date Location Provider Dx Diagnosis Office Visit 02/19/2021 8:00a [facility] Pulmonary/Thoracic Geetha To xavier A.N.P. J45.30 Mild persistent asthma, uncomplicated Office Visit 01/15/2021 8:00a [facility] Pulmonary/Thoracic Geetha To xavier A.N.P. J45.30 Mild persistent asthma, uncomplicated Assessments Date Code Description Provider 02/19/2021 J45.30 Mild persistent asthma, uncompli cated Geetha Sheffield, A.N.P. 01/15/2021 J45.30 Mild persistent asthma, uncompli cated Geetha Sheffield, A.N.P. 01/10/2021 R06.02 Shortness of breath Pulmonary La b Plan of Treatment Future Appointment(s):* 08/05/2021 8:45 am - Jose Elias Almaguer M.D. at [facility] * 07/24/2021 4:00 pm - Thor Pierson MD at [facility] * 09/10/2021 8:00 am - Geetha Sheffield, A.N.P. at [facility] Pulmonary/Thoracic 02/19/2021 - Geetha Sheffield, A.N.P.* [...] Pierson MD RUQ PAIN/GALLBLADDER Scheduled 06/07 6 [facility] [address] [place] [address] [phone]
--- OUTSIDE RECORDS SUMMARY | 2021-07-24 10:27 | CCD | Continuity of Care Document ---
Author Author CÉSAR LAND, Nica Valdes Organization Unknown Address [address] [facility] [address] [place] [address] Phone [phone] Care Team Providers Care Lawn Care Technician Name Role Phone Caio Concetta Brigitte Bar AUTM [phone] AUTM Unavailable Lissette Gaspar R.N. AUTM [phone] AUTM Unavailable Problems Active Problems Provider Date [...] lb BMI (Body Mass Index) 41.8 kg/m2 [place] Body Weight 110 lb Weight 105.235 kg Weight Percentile >97th Height Percentile 24 % BSA (Body Surface Area) 2.05 m2 02/19/2021 7:58am BP Systolic 122 mmHg BP Diastolic 68 mmHg Heart Rate 76 /min O2 % BldC Oximetry 97 % Height 62.5 inches 5'2.50" Weight 234.00 lb BMI (Body Mass Index) 42.1 kg/m2 [place] Body Weight 110 lb Asthma Control Test [...] L Fev6-%Pred-Pre 97 L Fev6-LLN 2.96 L Eoj3ehq-Cqfm 87 % Imt3quv-Yyn 88 % Mcl4eac-%Pred-Pre 101 % Xyw7uue-COX 77 % Ign5nql-Tagt 101 % Jjd6exi-Tjg 100 % Yuz1zjd-%Pred-Pre 99 % FEFMax-Pred 6.56 L/E/sec FEFMax-Pre 5.91 L/E/sec FEFMax-%Pred-Pre 90 L/E/sec FEFMax-LLN 4.93 L/E/sec Izd9589-Uwlm 3.69 L/E/sec Wyh8879-Qua 3.99 L/E/sec Fpa6822-%Pred-Pre 108 L/E/sec Ell7884-CNW 2.51 L/E/sec ExpTime-Pre 7.41 sec Hit1rnc4-Rwdk 87 % Mbk0tlr9-Uix 88 % Fxw7orz7-%Pred-Pre 101 % Atm0zef4-RLG 78 % Procedures Date Code Description Status 02/19/2021 78774 Office/Outpatient Established Lo w MDM 20-29 Min Completed 02/19/2021 12761 Spirometry Completed 01/15/2021 93666 Office/Outpatient Established Mo d MDM 30-39 Min Completed 01/15/2021 81128 Inhaler Teaching Completed 01/10/2021 89420 Diffusing Capacity Completed 01/10/2021 19416 Plethysmography Determination Kaylah ng Volumes & Per Airway Resist Completed 01/10/2021 49845 Bronchospasm Evaluation Complete d Medical Devices Description No Information Available Encounters Type Date Location Provider Dx Diagnosis Office Visit 02/19/2021 8:00a [facility] Pulmonary/Thoracic Geetha To xavier A.N.P. J45.30 Mild persistent asthma, uncomplicated Office Visit 01/15/2021 8:00a [facility] Pulmonary/Thoracic Geetha To xavier A.N.P. J45.30 Mild persistent asthma, uncomplicated Assessments Date Code Description Provider 02/19/2021 J45.30 Mild persistent asthma, uncompli cated Geetha Sheffield, A.N.P. 01/15/2021 J45.30 Mild persistent asthma, uncompli cated Geetha Sheffield, A.N.P. 01/10/2021 R06.02 Shortness of breath Pulmonary La b Plan of Treatment Future Appointment(s):* 08/05/2021 8:45 am - Jose Elias Almaguer M.D. at [facility] * 07/24/2021 4:00 pm - Thor Pierson MD at [facility] * 09/10/2021 8:00 am - Geetha Sheffield, A.N.P. at [facility] Pulmonary/Thoracic 02/19/2021 - Geetha Sheffield, A.N.P.* [...] Pierson MD RUQ PAIN/GALLBLADDER Scheduled 06/07 6 [facility] [address] [place] [address] [phone]
--- OUTSIDE RECORDS SUMMARY | 2021-07-24 10:29 | CCD ---
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 Name Role Phone Nettie, L Geetha HAT MODEL Unavailable Unavailable Nettie, L Geetha HAT MODEL Unavailable Unavailable Nettie, L Geetha HAT MODEL Unavailable Unavailable Nettie, L Geetha HAT MODEL Unavailable Unavailable Nettie, L Geetha HAT MODEL Unavailable Unavailable Nettie, L Geetha HAT MODEL Unavailable Unavailable Nettie, L Geetha HAT MODEL Unavailable Unavailable Nettie, L Geetha HAT MODEL Unavailable Unavailable Nettie, L Geetha HAT MODEL Unavailable Unavailable Nettie, L Geetha HAT MODEL Unavailable Unavailable Nettie, L Geetha HAT MODEL Unavailable Unavailable Nettie, L Geetha HAT MODEL Unavailable Unavailable Nettie, L Geetha HAT MODEL Unavailable Unavailable Nettie, L Geetha HAT MODEL Unavailable Unavailable Nettie, L Geetha HAT MODEL Unavailable Unavailable Nettie, L Geetha HAT MODEL Unavailable Unavailable Nettie, L Geetha HAT MODEL Unavailable Unavailable Nettie, L Geetha HAT MODEL Unavailable Unavailable Nettie, L Geetha HAT MODEL Unavailable Unavailable Nettie, L Geetha HAT MODEL Unavailable Unavailable Nettie, L Geetha HAT MODEL Unavailable Unavailable Nettie, L Geetha HAT MODEL Unavailable Unavailable Nettie, L Geetha HAT MODEL Unavailable Unavailable Nettie, L Geetha HAT MODEL Unavailable Unavailable Nettie, L Geetha HAT MODEL Unavailable Unavailable Dipesh LINDSEY MD Unavailable Unavailable PERLAUGADipesh MD Unavailable Unavailable Dipesh LINDSEY MD Unavailable Unavailable Dipesh LINDSEY MD Unavailable Unavailable Dipesh LINDSEY MD Unavailable Unavailable Dipesh LINDSEY MD Unavailable Unavailable Dipesh LINDSEY MD Unavailable Unavailable Dipesh LINDSEY MD Unavailable Unavailable Dipesh LINDSEY MD Unavailable Unavailable Dipesh LINDSEY MD Unavailable Unavailable Dipesh LINDSEY MD Unavailable Unavailable Dipesh LINDSEY MD Unavailable Unavailable Dipesh LINDSEY MD Unavailable Unavailable Dipesh LINDSEY MD Unavailable Unavailable Dipesh LINDSEY MD Unavailable Unavailable Dipesh LINDSEY MD Unavailable Unavailable Dipesh LINDSEY MD Unavailable Unavailable Dipesh LINDSEY MD Unavailable Unavailable Dipesh LINDSEY MD Unavailable Unavailable Dipesh LINDSEY MD Unavailable Unavailable Dipesh LINDSEY MD Unavailable Unavailable Dipesh LINDSEY MD Unavailable Unavailable Dipesh LINDSEY MD Unavailable Unavailable Dipesh LINDSEY MD Unavailable Unavailable Dipesh LINDSEY MD Unavailable Unavailable BARAYUGA, Dipesh TOMLIN MD Unavailable Unavailable BARAYUGA, Dipesh TOMLIN MD Unavailable Unavailable BARAYUGA, Dipesh TOMLIN MD Unavailable Unavailable BARAYUGA, Dipesh TOMLIN MD Unavailable Unavailable BARAYUGA, Dipesh TOMLIN MD Unavailable Unavailable BARAYUGA, Dipesh TOMLIN MD Unavailable Unavailable BARAYUGA, Dipesh TOMLIN MD Unavailable Unavailable BARAYUGA, Dipesh TOMLIN MD Unavailable Unavailable BARAYUGA, Dipesh TOMLIN MD Unavailable Unavailable BARAYUGA, Dipesh TOMLIN MD Unavailable Unavailable LETTIERE, A J CARLOS PA Unavailable Unavailable LETTIERE, A J CARLOS PA Unavailable Unavailable LETTIERE, A J CARLOS PA Unavailable Unavailable LETTIERE, A J CARLOS PA Unavailable Unavailable LETTIERE, A J CARLOS PA Unavailable Unavailable LETTIERE, A J CARLOS PA Unavailable Unavailable LETTIERE, A J CARLOS PA Unavailable Unavailable LETTIERE, A J CARLOS PA Unavailable Unavailable LETTIERE, A J CARLOS PA Unavailable Unavailable LETTIERE, A J CARLOS PA Unavailable Unavailable LETTIERE, A J CARLOS PA Unavailable Unavailable LETTIERE, A J CARLOS PA Unavailable Unavailable LETTIERE, A J CARLOS PA Unavailable Unavailable LETTIERE, A J CARLOS PA Unavailable Unavailable LETTIERE, A J CARLOS PA Unavailable Unavailable LETTIERE, A J CARLOS PA Unavailable Unavailable LETTIERE, A J CARLOS PA Unavailable Unavailable LETTIERE, A J CARLOS PA Unavailable Unavailable LETTIERE, A J CARLOS PA Unavailable Unavailable LETTIERE, A J CARLOS PA Unavailable Unavailable LETTIERE, A J CARLOS PA Unavailable Unavailable LETTIERE, A J CARLOS PA Unavailable Unavailable LETTIERE, A J CARLOS PA Unavailable Unavailable LETTIERE, A J CARLOS PA Unavailable Unavailable LETTIERE, A J CARLOS PA Unavailable Unavailable LETTIERE, A J CARLOS PA Unavailable Unavailable LETTIERE, A J CARLOS PA Unavailable Unavailable LETTIERE, A J CARLOS PA Unavailable Unavailable LETTIERE, A J CARLOS PA Unavailable Unavailable LETTIERE, A J CARLOS PA Unavailable Unavailable LETTIERE, A J CARLOS PA Unavailable Unavailable Carter, J Beth HAT MODEL Unavailable Unavailable Carter, J Beth HAT MODEL Unavailable Unavailable Carter, J Beth HAT MODEL Unavailable Unavailable Carter, J Beth HAT MODEL Unavailable Unavailable Carter, J Beth HAT MODEL Unavailable Unavailable Carter, J Beth HAT MODEL Unavailable Unavailable Carter, J Beth HAT MODEL Unavailable Unavailable Carter, J Beth HAT MODEL Unavailable Unavailable Carter, J Beth HAT MODEL Unavailable Unavailable Carter, J Beth HAT MODEL Unavailable Unavailable Carter, J Beth HAT MODEL Unavailable Unavailable Carter, J Beth HAT MODEL Unavailable Unavailable Carter, J Beth HAT MODEL Unavailable Unavailable Carter, J Beth HAT MODEL Unavailable Unavailable Ashleigh Hdz Barratt PA Unavailable Unavailable Hdz, M Barratt PA Unavailable Unavailable Hdz, M Barratt PA Unavailable Unavailable Hdz, M Barratt PA Unavailable Unavailable Hdz, M Barratt PA Unavailable Unavailable Hdz, M Barratt PA Unavailable Unavailable Hdz, M Barratt PA Unavailable Unavailable Hdz, M Barratt PA Unavailable Unavailable Hdz, M Barratt PA Unavailable Unavailable Hdz, M Barratt PA Unavailable Unavailable Hdz, M Barratt PA Unavailable Unavailable Hdz, M Barratt PA Unavailable Unavailable Hdz, M Barratt PA Unavailable Unavailable Hdz, M Barratt PA Unavailable Unavailable Hdz, M Barratt PA Unavailable Unavailable Hdz, M Barratt PA Unavailable Unavailable Hdz, M Barratt PA Unavailable Unavailable Hdz, M Barratt PA Unavailable Unavailable Hdz, M Barratt PA Unavailable Unavailable Hdz, M Barratt PA Unavailable Unavailable Hdz, M Barratt PA Unavailable Unavailable Hdz, M Barratt PA Unavailable Unavailable Hdz, M Barratt PA Unavailable Unavailable Hdz, M Barratt PA Unavailable Unavailable Hdz, M Barratt PA Unavailable Unavailable Hdz, M Barratt PA Unavailable Unavailable Hdz, M Barratt PA Unavailable Unavailable Hdz, M Barratt PA Unavailable Unavailable Hdz, M Barratt PA Unavailable Unavailable Bernardo Clark MD Unavailable Unavailable Bernardo Clark MD Unavailable Unavailable Bernardo Clark MD Unavailable Unavailable Bernardo Clark MD Unavailable Unavailable Bernardo Clark MD Unavailable Unavailable Bernardo Clark MD Unavailable Unavailable Bernardo Clark MD Unavailable Unavailable Bernardo Clark MD Unavailable Unavailable Bernardo Clark MD Unavailable Unavailable Bernardo Clark MD Unavailable Unavailable Bernardo Clark MD Unavailable Unavailable Bernardo Clark MD Unavailable Unavailable Bernardo Clark MD Unavailable Unavailable Bernardo Clark MD Unavailable Unavailable Bernardo Clark MD Unavailable Unavailable Bernardo Clark MD Unavailable Unavailable Bernardo Clark MD Unavailable Unavailable Bernardo Clark MD Unavailable Unavailable Bernardo Clark MD Unavailable Unavailable Bernardo Clark MD Unavailable Unavailable Bernardo Clark MD Unavailable Unavailable Bernardo Clark MD Unavailable Unavailable Bernardo Clark MD Unavailable Unavailable Bernardo Clark MD Unavailable Unavailable Bernardo Clark MD Unavailable Unavailable RING, K RAMESH PA Unavailable Unavailable RING, K RAMESH PA Unavailable Unavailable RING, K RAMESH PA Unavailable Unavailable RING, K RAMESH PA Unavailable Unavailable RING, K RAMESH PA Unavailable Unavailable RING, K RAMESH PA Unavailable Unavailable RING, K RAMESH PA Unavailable Unavailable RING, K RAMESH PA Unavailable Unavailable RING, K RAMESH PA Unavailable Unavailable RING, K RAMESH PA Unavailable Unavailable RING, K RAMESH PA Unavailable Unavailable RING, K RAMESH PA Unavailable Unavailable RING, K RAMESH PA Unavailable Unavailable RING, K RAMESH PA Unavailable Unavailable RING, K RAMESH PA Unavailable Unavailable RING, K RAMESH PA Unavailable Unavailable RING, K RAMESH PA Unavailable Unavailable RING, K RAMESH PA Unavailable Unavailable RING, K RAMESH PA Unavailable Unavailable RING, K RAMESH PA Unavailable Unavailable RING, K RAMESH PA Unavailable Unavailable ALANNA PALMER MD Unavailable Unavailable ALANNA PALMER MD Unavailable Unavailable ALANNA PALMER MD Unavailable Unavailable ALANNA PALMER MD Unavailable Unavailable ALANNA PALMER MD Unavailable Unavailable ALANNA PALMER MD Unavailable Unavailable ALANNA PALMER MD Unavailable Unavailable ALANNA PALMER MD Unavailable Unavailable ALANNA PALMER MD Unavailable Unavailable ALANNA PALMER MD Unavailable Unavailable ALANNA PALMER MD Unavailable Unavailable ALANNA PALMER MD Unavailable Unavailable ALANNA PALMER MD Unavailable Unavailable ALANNA PALMER MD Unavailable Unavailable ALANNA PALMER MD Unavailable Unavailable ALANNA PALMER MD Unavailable Unavailable ALANNA PALMER MD Unavailable Unavailable ALANNA PALMER MD Unavailable Unavailable ALANNA PALMER MD Unavailable Unavailable ALANNA PALMER MD Unavailable Unavailable ALANNA PALMER MD Unavailable Unavailable ALANNA PALMER MD Unavailable Unavailable ALANNA PALMER MD Unavailable Unavailable ALANNA PALMER MD Unavailable Unavailable ALANNA PALMER MD Unavailable Unavailable ALANNA PALMER MD Unavailable Unavailable ALANNA PALMER MD Unavailable Unavailable ALANNA PALMER MD Unavailable Unavailable ALANNA PALMER MD Unavailable Unavailable ALANNA PALMER MD Unavailable Unavailable ALANNA PALMER MD Unavailable Unavailable Monty RAMIREZ MD Unavailable Unavailable Monty RAMIREZ MD Unavailable Unavailable Monty RAMIREZ MD Unavailable Unavailable Monty RAMIREZ MD Unavailable Unavailable Monty RAMIREZ MD Unavailable Unavailable Monty RAMIREZ MD Unavailable Unavailable Monty RAMIREZ MD Unavailable Unavailable Monty RAMIREZ MD Unavailable Unavailable JAMES, L SINDI MD Unavailable Unavailable JAMES, L SINDI MD Unavailable Unavailable JAMES, L SINDI MD Unavailable Unavailable JAMES, L SINDI MD Unavailable Unavailable JAMES, L SINDI MD Unavailable Unavailable JAMES, L SINDI MD Unavailable Unavailable JAMES, L SINDI MD Unavailable Unavailable JAMES, L SINDI MD Unavailable Unavailable JAMES, L SINDI MD Unavailable Unavailable JAMES, L SINDI MD Unavailable Unavailable JAMES, L SINDI MD Unavailable Unavailable JAMES, L SINDI MD Unavailable Unavailable Re-disclosure Warning The records that you are about to access may contain information from federally-assisted alcohol or drug abuse programs. If such information is present, then the following federally mandated warning applies: This information has been disclosed to you from records protected by federal confidentiality rules (42 CFR part 2). The federal rules prohibit you from making any further disclosure of this information unless further disclosure is expressly permitted by the written consent of the person to whom it pertains or as otherwise permitted by 42 CFR part 2. A general authorization for the release of medical or other information is NOT sufficient for this purpose. The Federal rules restrict any use of the information to criminally investigate or prosecute any alcohol or drug abuse patient.The records that you are about to access may contain highly sensitive health information, the redisclosure of which is protected by Article 27-F of the [facility] Public Health law. If you continue you may have access to information: Regarding HIV / AIDS; Provided by facilities licensed or operated by the [facility] Office of Mental Health; or Provided by the [facility] Office for People With Developmental Disabilities. If such information is present, then the following [facility] mandated warning applies: This information has been disclosed to you from confidential records which are protected by state law. State law prohibits you from making any further disclosure of this information without the specific written consent of the person to whom it pertains, or as otherwise permitted by law. Any unauthorized further disclosure in violation of state law may result in a fine or fci sentence or both. A general authorization for the release of medical or other information is NOT sufficient authorization for further disc losure. Family History Family Member Name Family Member Gender Family Member Status Date o f Status Description Data Source(s) Unknown Unknown Problem MEDENT ([facility]) Unknown Male Problem MEDENT ([facility]) Encounters Encounter Providers Location Date Indications Data Source(s ) [place] [address] [address] 07/21/2021 12:00:00 AM EST eCW1 ([facility]) Outpatient Attender: SADA Chisholm/Nani/Desmond/ Nicola 07/03/2021 01:00:00 PM EDT MEDENT ([facility]) Outpatient Attender: Ting Clark MD 1 06:43:37 PM EDT - 06/28/2021 07:22:05 PM EDT [facility] ([facility]) [place] [address] [address] 06/25/2021 12:00:00 AM EDT eCW1 ([facility]) [place] [address] [address] 05/16/2021 12:00:00 AM EDT eCW1 ([facility]) [place] [address] [address] 05/13/2021 12:00:00 AM EDT eCW1 ([facility]) Emergency Attender: SINDI RAMIREZ MDConsultant: Beth ramirez HAT MODEL 05/10/2021 03:24:00 PM EDT - 05/10/2021 06:16:00 PM EDT [facility] Patient discharged. [place] [address] [address] 05/07/2021 12:00:00 AM EDT eCW1 ([facility]) [place] [address] [address] 05/05/2021 12:00:00 AM EDT eCW1 ([facility]) [place] [address] [address] 04/01/2021 12:00:00 AM EDT eCW1 ([facility]) [place] [address] [address] 03/12/2021 12:00:00 AM EDT eCW1 ([facility]) Outpatient Attender: RAMESH Hennessy Primary 02/26/2021 04:20:00 PM EDT MEDENT ([facility]) Outpatient Attender: Geetha Sheffield NP Phan/Tabor/Desmond/Reindl 02/19/2021 08:00:00 AM EDT MEDENT ([facility]) Outpatient Attender: Geetha Sheffield NP Phan/Tabor/Desmond/Reindl 01/15/2021 08:00:00 AM EDT [facility] ([facility]) [place] [address] [address] 01/10/2021 12:00:00 AM EDT eCW1 ([facility]) [place] [address] [address] 12/23/2020 12:00:00 AM EDT eCW1 ([facility]) [place] [address] [address] 12/23/2020 12:00:00 AM EDT eCW1 ([facility]) [place] [address] [address] 12/19/2020 12:00:00 AM EDT eCW1 ([facility]) [place] [address] [address] 12/19/2020 12:00:00 AM EDT eCW1 ([facility]) Outpatient Attender: Geetha Pascualang/Tabor/Desmond/Reindl 12/18/2020 10:00:00 AM EDT [facility] ([facility]) [place] [address] [facility] [address] 12/18/2020 12:00:00 AM EDT eCW1 ([facility]) Outpatient Attender: RAMESH Hennessy Primary 12/09/2020 01:50:00 PM EDT MEDENT ([facility]) Outpatient Attender: J CARLOS singletary 11/22/2020 10:00:00 AM EDT MEDENT ([facility]) Outpatient [address] [facility] [place] [address] 11/07/2020 12:00:00 AM EST eCW1 ([facility]) Unknown [address] [facility] [address] 11/06/2020 12:00:00 AM EST eCW1 ([facility]) Unknown [address] [facility] [place] [address] 10/23/2020 12:00:00 AM EST eCW1 ([facility]) Outpatient [address] [facility] [address] 10/21/2020 12:00:00 AM EST eCW1 ([facility]) Outpatient [address] [facility] [address] 10/17/2020 12:00:00 AM EST eCW1 ([facility]) Unknown [address] [facility] [place] [address] 10/11/2020 12:00:00 AM EST eCW1 ([facility]) Outpatient [address] [facility] [address] 10/10/2020 12:00:00 AM EST eCW1 ([facility]) (WC PROC) [facility]Center Procedure [address] [place] [address] 09/19/2020 12:00:00 AM EST eCW1 ([facility]) OFFICE OUTPATIENT VISIT 15 MINUTES Attender: Amanda STEVE Physical Therapy 09/18/2020 09:30:00 AM EST MEDENT ([facility]) Outpatient [address] [facility] [address] 08/22/2020 12:00:00 AM EST eCW1 ([facility]) Office Visit Attender: Amanda STEVE Physical Therapy 10:00:00 AM EST MEDENT ([facility]) Office Visit Attender: ALANNA PALMER MD Physical Therapy 01:00:00 PM EST MEDENT ([facility]) Office Visit Attender: ALANNA PALMER MD Physical Therapy 01:15:00 PM EST MEDENT ([facility]) Office Visit Attender: ALANNA PALMER MD Physical Therapy 02:00:00 PM EDT MEDENT ([facility]) Immunizations Vaccine Date Status Description Data Source(s) IIV3. This is one of two codes replacing CVX 15, which is being retired. 06/09/2021 07:30:00 AM EDT completed [facility]CW[facility] IIV3. This is one of two codes replacing CVX 15, which is being retired. 06/09/2021 07:30:00 AM EDT completed eCW1 ([facility]) COVID-19 VACCINE Moderna 12/19/2020 12:00:00 AM EDT completed [facility] Vaccine Series Complete: YESThis Data wa s Submitted to [facility] [employer]. COVID-19 VACCINE Moderna 11/22/2020 12:00:00 AM EDT completed [facility] Vaccine Series Complete: NOThis Data was Submitted to [facility] [employer]. Medications Medication Brand Name Start Date Product Form Dose Route Admi nistrative Instructions Pharmacy Instructions Status Indications Reaction Description Data Source(s) Fluticasone propionate 0.05 MG/ACTUAT Metered Dose [facility] 50 mcg/actuation FLUTICASONE PROPIONATE 06/29/2021 12:00:00 AM EDT spray,suspension 15 SPRAY 2 SPRAYS IN EACH NOSTRIL ONCE DAILY SPRAY 2 SPRAYS IN EACH NOSTRIL ONCE DAILY SOLD: 06/29/2021 [facility] 30 mg 06/29/2021 12:00:00 AM EDT tablet 40 TAKE ONE TABLET BY MOUTH FOUR TIMES A DAY NEEDED FOR 10 DAYS TAKE ONE TABLET BY MOUTH FOUR TIMES A DA Y NEEDED FOR 10 DAYS SOLD: 06/29/2021 [facility] 30 mg/5 mL 06/29/2021 12:00:00 AM EDT suspension,extended re l 12 hr 100 TAKE 5ML BY MOUTH EVERY 12 HOURS FOR 10 DAYS TAKE 5ML BY MOUTH EVERY 12 HOURS FOR 10 DAYS SOLD: 06/29/2021 [facility] 60 mcg (15 mcg x 4)/0.5 mL 06/09/2021 12:00:00 AM EDT syring e 0 INJECT DIRECTED INJECT DIRECTED SOLD: 06/09/2021 [facility] 300 mg 06/05/2021 12:00:00 AM EDT capsule 14 TAKE ONE CAPSULE BY MOUTH EVERY 12 HOURS FOR 7 DAYS TAKE ONE CAPSULE BY MOUTH EVERY 12 HOURS FOR 7 DAYS SO LD: 06/05/2021 [facility] Ondansetron 4 MG Disintegrating Oral Tablet Ondansetron 02/26/2021 12:00:00 AM EDT active MEDENT ([facility]) NITROFURANTOIN, MACROCRYSTALS 25 MG / Ni trofurantoin, Monohydrate 75 MG Oral Capsule [Macrobid] Macrobid 02/26/2021 12:00:00 AM EDT ORAL active MEDENT ([facility]) NITROFURANTOIN, MACROCRYSTALS 25 MG / Ni trofurantoin, Monohydrate 75 MG Oral Capsule 100 mg NITROFURANTOIN MONOHYD/M-CRYST 02/26/2021 12:00:00 AM EDT ca psule 10 TAKE ONE CAPSULE BY MOUTH EVERY 12 HOURS FOR 5 DAYS TAKE ONE CAPSULE BY MOUTH EVERY 12 HOURS FOR 5 DAYS SOLD: 02/26/2021 [facility] Ondansetron 4 MG Disintegrating Oral Tablet ONDANSETRON 02/26/2021 12:00:00 AM EDT tablet,disintegrating 10 DISSOLVE O NE TABLET ON TONGUE EVERY 8 HOURS NEEDED NAUSEA DISSOLVE ONE TABLET ON TONGUE EVERY 8 HOURS NEEDED NAUSEA SOLD: 02/26/2021 [facility] 100 mcg/actuation 01/15/2021 12:00:00 AM EDT blister with de vice 30 INHALE ONE PUFF BY MOUTH EVERY DAY INHALE ONE PUFF BY MOUTH EVERY DAY SOLD: 06/03/2021 [facility] 90 mcg/actuation 01/15/2021 12:00:00 AM EDT HFA aerosol inha ler 8 INHALE TWO PUFFS BY MOUTH EVERY 6 HOURS NEEDED INHALE TWO PUFFS BY MOUTH EVERY 6 HOURS NEEDED SOLD: 01/15/2021 [facility] 14 ACTUAT fluticasone furoate 0.1 MG/ACTUAT Dry Powder Inhaler [Arnuity] Arnuity Ellipta 01/15/2021 12:00:00 AM EDT ORAL active MEDENT ([facility] ) 100 mcg/actuation 01/15/2021 12:00:00 AM EDT blister with de vice 30 INHALE ONE PUFF BY MOUTH EVERY DAY INHALE ONE PUFF BY MOUTH EVERY DAY SOLD: 04/28/2021 [facility] 100 mcg/actuation 01/15/2021 12:00:00 AM EDT blister with de vice 30 INHALE ONE PUFF BY MOUTH EVERY DAY INHALE ONE PUFF BY MOUTH EVERY DAY SOLD: 01/15/2021 [facility] 100 mcg/actuation 01/15/2021 12:00:00 AM EDT blister with de vice 30 INHALE ONE PUFF BY MOUTH EVERY DAY INHALE ONE PUFF BY MOUTH EVERY DAY SOLD: 02/16/2021 [facility] 100 mcg/actuation 01/15/2021 12:00:00 AM EDT blister with de vice 30 INHALE ONE PUFF BY MOUTH EVERY DAY INHALE ONE PUFF BY MOUTH EVERY DAY SOLD: 03/25/2021 [facility] 300 mg 01/07/2021 12:00:00 AM EDT capsule 20 TAKE ONE CAPSULE BY MOUTH EVERY 12 HOURS FOR 10 DAYS TAKE ONE CAPSULE BY MOUTH EVERY 12 HOURS FOR 10 DAYS S OLD: 01/08/2021 [facility] Zofran ODT 4 MG UNK 12/23/2020 12:00:00 AM EDT 1.0 {tablet_on_the_tongue_and_allow_to_dissolve} suspe nded Zofran ODT 4 MG eCW1 ([facility]) Zofran ODT 4 MG UNK 12/23/2020 12:00:00 AM EDT 1.0 {tablet_on_the_tongue_and_allow_to_dissolve} active Zofran ODT 4 MG eCW1 ([facility]) Flonase Allergy Relief 50 MCG/ACT Flonase Allergy Relief 50 MCG/ACT 12/23/2020 12:00:00 AM EDT suspended Flona se Allergy Relief 50 MCG/ACT eCW1 ([facility]) Zofran ODT 4 MG UNK 12/23/2020 12:00:00 AM EDT 1.0 {tablet_on_the_tongue_and_allow_to_dissolve} suspe nded Zofran ODT 4 MG eCW1 ([facility]) Zofran ODT 4 MG UNK 12/23/2020 12:00:00 AM EDT 1.0 {tablet_on_the_tongue_and_allow_to_dissolve} suspe nded Zofran ODT 4 MG eCW1 ([facility]) Flonase Allergy Relief 50 MCG/ACT Flonase Allergy Relief 50 MCG/ACT 12/23/2020 12:00:00 AM EDT active Flonase Allergy Relief 50 MCG/ACT eCW1 ([facility]) Flonase Allergy Relief 50 MCG/ACT Flonase Allergy Relief 50 MCG/ACT 12/23/2020 12:00:00 AM EDT suspended Flona se Allergy Relief 50 MCG/ACT eCW1 ([facility]) Zofran ODT 4 MG K 12/23/2020 12:00:00 AM EDT 1.0 {tablet_on_the_tongue_and_allow_to_dissolve} suspe nded Zofran ODT 4 MG eCW1 ([facility]) Flonase Allergy Relief 50 MCG/ACT Flonase Allergy Relief 50 MCG/ACT 12/23/2020 12:00:00 AM EDT active Flonase Allergy Relief 50 MCG/ACT eCW1 ([facility]) Zofran ODT 4 MG K 12/23/2020 12:00:00 AM EDT 1.0 {tablet_on_the_tongue_and_allow_to_dissolve} suspe nded Zofran ODT 4 MG eCW1 ([facility]) Zofran ODT 4 MG UNK 12/23/2020 12:00:00 AM EDT 1.0 {tablet_on_the_tongue_and_allow_to_dissolve} active Zofran ODT 4 MG eCW1 ([facility]) Zofran ODT 4 MG UNK 12/23/2020 12:00:00 AM EDT 1.0 {tablet_on_the_tongue_and_allow_to_dissolve} suspended eCW1 ([facility]) Zofran ODT 4 MG UNK 12/23/2020 12:00:00 AM EDT 1.0 {tablet_on_the_tongue_and_allow_to_dissolve} active Zofran ODT 4 MG eCW1 ([facility]) Zofran ODT 4 MG UNK 12/23/2020 12:00:00 AM EDT 1.0 {tablet_on_the_tongue_and_allow_to_dissolve} suspe nded Zofran ODT 4 MG eCW1 ([facility]) Flonase Allergy Relief 50 MCG/ACT Flonase Allergy Relief 50 MCG/ACT 12/23/2020 12:00:00 AM EDT suspended Flona se Allergy Relief 50 MCG/ACT eCW1 ([facility]) Flonase Allergy Relief 50 MCG/ACT Flonase Allergy Relief 50 MCG/ACT 12/23/2020 12:00:00 AM EDT suspended eCW1 ([facility]) Zofran ODT 4 MG UNK 12/23/2020 12:00:00 AM EDT 1.0 {tablet_on_the_tongue_and_allow_to_dissolve} suspe nded Zofran ODT 4 MG eCW1 ([facility]) Flonase Allergy Relief 50 MCG/ACT Flonase Allergy Relief 50 MCG/ACT 12/23/2020 12:00:00 AM EDT suspended Flona se Allergy Relief 50 MCG/ACT eCW1 ([facility]) Flonase Allergy Relief 50 MCG/ACT Flonase Allergy Relief 50 MCG/ACT 12/23/2020 12:00:00 AM EDT suspended Flona se Allergy Relief 50 MCG/ACT eCW1 ([facility]) Flonase Allergy Relief 50 MCG/ACT Flonase Allergy Relief 50 MCG/ACT 12/23/2020 12:00:00 AM EDT active Flonase Allergy Relief 50 MCG/ACT eCW1 ([facility]) Flonase Allergy Relief 50 MCG/ACT Flonase Allergy Relief 50 MCG/ACT 12/23/2020 12:00:00 AM EDT suspended Flona se Allergy Relief 50 MCG/ACT eCW1 ([facility]) Flonase Allergy Relief 50 MCG/ACT Flonase Allergy Relief 50 MCG/ACT 12/23/2020 12:00:00 AM EDT suspended Flona se Allergy Relief 50 MCG/ACT eCW1 ([facility]) 90 mcg/actuation 12/21/2020 12:00:00 AM EDT HFA aerosol inha ler 8 INHALE ONE PUFF BY MOUTH EVERY 4 HOURS INHALE ONE PUFF BY MOUTH EVERY 4 HOURS SOLD: 12/23/2020 [facility] 90 mcg/actuation 12/21/2020 12:00:00 AM EDT HFA aerosol inha ler 8 INHALE ONE PUFF BY MOUTH EVERY 4 HOURS INHALE ONE PUFF BY MOUTH EVERY 4 HOURS SOLD: 02/16/2021 [facility] medroxyprogesterone acetate 5 MG Oral Tablet [Provera] Provera 5 MG Provera 5 MG 12/19/2020 12:00:00 AM EDT 1.0 {tablet} suspended Provera 5 MG eCW1 ([facility]) medroxyprogesterone acetate 5 MG Oral Tablet [Provera] Provera 5 MG Provera 5 MG 12/19/2020 12:00:00 AM EDT 1.0 {tablet} suspended eCW1 ([facility]) 50 mg 12/19/2020 12:00:00 AM EDT tablet 30 TAKE 1 TABLET BY MOUTH ONCE A DAY TAKE 1 TABLET BY MOUTH ONCE A DAY SOLD: 12/19/2020 [facility] 0.12-0.015 mg/24 hr 12/19/2020 12:00:00 AM EDT ring 3 INSERT 1 RING VAGINALLY AND LEAVE IN PLACE FOR 3 WEEKS, REMOVE AND REPLACE WITH NEW RING AFTER A 7 DAY BREAK INSERT 1 RING VAGINALLY AND LEAVE IN [facility]UL CE FOR 3 WEEKS, REMOVE AND REPLACE WITH NEW RING AFTER A 7 DAY BREAK SOLD: 04/06/2021 [facility] medroxyprogesterone acetate 5 MG Oral Tablet [Provera] Provera 5 MG Provera 5 MG 12/19/2020 12:00:00 AM EDT 1.0 {tablet} active Provera 5 MG eCW1 ([facility]) medroxyprogesterone acetate 5 MG Oral Tablet [Provera] Provera 5 MG Provera 5 MG 12/19/2020 12:00:00 AM EDT 1.0 {tablet} suspended Provera 5 MG eCW1 ([facility]) medroxyprogesterone acetate 5 MG Oral Tablet [Provera] Provera 5 MG Provera 5 MG 12/19/2020 12:00:00 AM EDT 1.0 {tablet} active Provera 5 MG eCW1 ([facility]) 0.12-0.015 mg/24 hr 12/19/2020 12:00:00 AM EDT ring 1 INSERT 1 RING VAGINALLY AND LEAVE IN PLACE FOR 3 WEEKS, REMOVE AND REPLACE WITH NEW RING AFTER A 7 DAY BREAK INSERT 1 RING VAGINALLY AND LEAVE IN [facility] FOR 3 WEEKS, REMOVE AND REPLACE WITH NEW RING AFTER A 7 DAY BREAK SOLD: 12/19/2020 [facility] 50 mg 12/19/2020 12:00:00 AM EDT tablet 30 TAKE 1 TABLET BY MOUTH ONCE A DAY TAKE 1 TABLET BY MOUTH ONCE A DAY SOLD: 03/10/2021 [facility] 50 mg 12/19/2020 12:00:00 AM EDT tablet 30 TAKE 1 TABLET BY MOUTH ONCE A DAY TAKE 1 TABLET BY MOUTH ONCE A DAY SOLD: 02/05/2021 [facility] 50 mg 12/19/2020 12:00:00 AM EDT tablet 30 TAKE 1 TABLET BY MOUTH ONCE A DAY TAKE 1 TABLET BY MOUTH ONCE A DAY SOLD: 05/24/2021 [facility] medroxyprogesterone acetate 5 MG Oral Tablet [Provera] Provera 5 MG Provera 5 MG 12/19/2020 12:00:00 AM EDT 1.0 {tablet} suspended Provera 5 MG eCW1 ([facility]) medroxyprogesterone acetate 5 MG Oral Tablet [Provera] Provera 5 MG Provera 5 MG 12/19/2020 12:00:00 AM EDT 1.0 {tablet} suspended Provera 5 MG eCW1 ([facility]) medroxyprogesterone acetate 5 MG Oral Tablet [Provera] Provera 5 MG Provera 5 MG 12/19/2020 12:00:00 AM EDT 1.0 {tablet} suspended Provera 5 MG eCW1 ([facility]) 5 mg 12/19/2020 12:00:00 AM EDT tablet 10 TAKE ONE TABLET BY MOUTH DAILY AT BEDTIME FOR 10 DAYS TAKE ONE TABLET BY MOUTH DAILY AT BEDTIME FOR 10 DAYS SOLD: 12/19/2020 [facility] medroxyprogesterone acetate 5 MG Oral Tablet [Provera] Provera 5 MG Provera 5 MG 12/19/2020 12:00:00 AM EDT 1.0 {tablet} active Provera 5 MG eCW1 ([facility]) 50 mg 12/19/2020 12:00:00 AM EDT tablet 30 TAKE 1 TABLET BY MOUTH ONCE A DAY TAKE 1 TABLET BY MOUTH ONCE A DAY SOLD: 06/23/2021 [facility] medroxyprogesterone acetate 5 MG Oral Tablet [Provera] Provera 5 MG Provera 5 MG 12/19/2020 12:00:00 AM EDT 1.0 {tablet} suspended Provera 5 MG eCW1 ([facility]) medroxyprogesterone acetate 5 MG Oral Tablet [Provera] Provera 5 MG Provera 5 MG 12/19/2020 12:00:00 AM EDT 1.0 {tablet} suspended Provera 5 MG eCW1 ([facility]) medroxyprogesterone acetate 5 MG Oral Tablet [Provera] Provera 5 MG Provera 5 MG 12/19/2020 12:00:00 AM EDT 1.0 {tablet} suspended Provera 5 MG eCW1 ([facility]) 0.12-0.015 mg/24 hr 12/19/2020 12:00:00 AM EDT ring 3 INSERT 1 RING VAGINALLY AND LEAVE IN PLACE FOR 3 WEEKS, REMOVE AND REPLACE WITH NEW RING AFTER A 7 DAY BREAK INSERT 1 RING VAGINALLY AND LEAVE IN [facility] FOR 3 WEEKS, REMOVE AND REPLACE WITH NEW RING AFTER A 7 DAY BREAK SOLD: 06/18/2021 [facility] 50 mg 12/19/2020 12:00:00 AM EDT tablet 30 TAKE 1 TABLET BY MOUTH ONCE A DAY TAKE 1 TABLET BY MOUTH ONCE A DAY SOLD: 04/20/2021 [facility] 0.12-0.015 mg/24 hr 12/19/2020 12:00:00 AM EDT ring 1 INSERT 1 RING VAGINALLY AND LEAVE IN PLACE FOR 3 WEEKS, REMOVE AND REPLACE WITH NEW RING AFTER A 7 DAY BREAK INSERT 1 RING VAGINALLY AND LEAVE IN [facility] FOR 3 WEEKS, REMOVE AND REPLACE WITH NEW RING AFTER A 7 DAY BREAK SOLD: 02/16/2021 [facility] medroxyprogesterone acetate 5 MG Oral Tablet [Provera] Provera 5 MG Provera 5 MG 12/19/2020 12:00:00 AM EDT 1.0 {tablet} suspended Provera 5 MG eCW1 ([facility]) 0.12-0.015 mg/24 hr 12/19/2020 12:00:00 AM EDT ring 1 INSERT 1 RING VAGINALLY AND LEAVE IN PLACE FOR 3 WEEKS, REMOVE AND REPLACE WITH NEW RING AFTER A 7 DAY BREAK INSERT 1 RING VAGINALLY AND LEAVE IN [facility] FOR 3 WEEKS, REMOVE AND REPLACE WITH NEW RING AFTER A 7 DAY BREAK SOLD: 01/15/2021 [facility] medroxyprogesterone acetate 5 MG Oral Tablet [Provera] Provera 5 MG Provera 5 MG 12/19/2020 12:00:00 AM EDT 1.0 {tablet} suspended Provera 5 MG eCW1 ([facility]) 21 DAY Ethinyl Estradiol 0.884587 MG/HR / Etonogestrel 0.005 MG/HR Vaginal Ring [NuvaRing] NuvaRing 0.12-0.015 MG/24HR [facility] 0.12-0.015 MG/24HR 12/18/2020 12:00:00 AM EDT active NuvaRing 0.12-0.015 MG/24HR eCW1 ([facility]) 21 DAY Ethinyl Estradiol 0.365877 MG/HR / Etonogestrel 0.005 MG/HR Vaginal Ring [NuvaRing] NuvaRing 0.12-0.015 MG/24HR NuvaRing 0.12-0.015 MG/24HR 12/18/2020 12:00:00 AM EDT active NuvaRing 0.12-0.015 MG/24HR eCW1 ([facility]) 21 DAY Ethinyl Estradiol 0.378620 MG/HR / Etonogestrel 0.005 MG/HR Vaginal Ring [NuvaRing] NuvaRing 0.12-0.015 MG/24HR NuvaRing 0.12-0.015 MG/24HR 12/18/2020 12:00:00 AM EDT active NuvaRing 0.12-0.015 MG/24HR eCW1 ([facility]) 21 DAY Ethinyl Estradiol 0.127022 MG/HR / Etonogestrel 0.005 MG/HR Vaginal Ring [NuvaRing] NuvaRing 0.12-0.015 MG/24HR NuvaRing 0.12-0.015 MG/24HR 12/18/2020 12:00:00 AM EDT active NuvaRing 0.12-0.015 MG/24HR eCW1 ([facility]) 21 DAY Ethinyl Estradiol 0.069362 MG/HR / Etonogestrel 0.005 MG/HR Vaginal Ring [NuvaRing] NuvaRing 0.12-0.015 MG/24HR NuvaRing 0.12-0.015 MG/24HR 12/18/2020 12:00:00 AM EDT active NuvaRing 0.12-0.015 MG/24HR eCW1 ([facility]) 21 DAY Ethinyl Estradiol 0.141415 MG/HR / Etonogestrel 0.005 MG/HR Vaginal Ring [NuvaRing] NuvaRing 0.12-0.015 MG/24HR NuvaRing 0.12-0.015 MG/24HR 12/18/2020 12:00:00 AM EDT active NuvaRing 0.12-0.015 MG/24HR eCW1 ([facility]) 21 DAY Ethinyl Estradiol 0.002998 MG/HR / Etonogestrel 0.005 MG/HR Vaginal Ring [NuvaRing] NuvaRing 0.12-0.015 MG/24HR NuvaRing 0.12-0.015 MG/24HR 12/18/2020 12:00:00 AM EDT active NuvaRing 0.12-0.015 MG/24HR eCW1 ([facility]) 21 DAY Ethinyl Estradiol 0.730831 MG/HR / Etonogestrel 0.005 MG/HR Vaginal Ring [NuvaRing] NuvaRing 0.12-0.015 MG/24HR NuvaRing 0.12-0.015 MG/24HR 12/18/2020 12:00:00 AM EDT active e CW1 ([facility]) 21 DAY Ethinyl Estradiol 0.248746 MG/HR / Etonogestrel 0.005 MG/HR Vaginal Ring [NuvaRing] NuvaRing 0.12-0.015 MG/24HR NuvaRing 0.12-0.015 MG/24HR 12/18/2020 12:00:00 AM EDT active NuvaRing 0.12-0.015 MG/24HR eCW1 ([facility]) 21 DAY Ethinyl Estradiol 0.422571 MG/HR / Etonogestrel 0.005 MG/HR Vaginal Ring [NuvaRing] NuvaRing 0.12-0.015 MG/24HR NuvaRing 0.12-0.015 MG/24HR 12/18/2020 12:00:00 AM EDT active NuvaRing 0.12-0.015 MG/24HR eCW1 ([facility]) 21 DAY Ethinyl Estradiol 0.526877 MG/HR / Etonogestrel 0.005 MG/HR Vaginal Ring [NuvaRing] NuvaRing 0.12-0.015 MG/24HR NuvaRing 0.12-0.015 MG/24HR 12/18/2020 12:00:00 AM EDT active NuvaRing 0.12-0.015 MG/24HR eCW1 ([facility]) 21 DAY Ethinyl Estradiol 0.112808 MG/HR / Etonogestrel 0.005 MG/HR Vaginal Ring [NuvaRing] NuvaRing 0.12-0.015 MG/24HR NuvaRing 0.12-0.015 MG/24HR 12/18/2020 12:00:00 AM EDT active NuvaRing 0.12-0.015 MG/24HR eCW1 ([facility]) 21 DAY Ethinyl Estradiol 0.899160 MG/HR / Etonogestrel 0.005 MG/HR Vaginal Ring [NuvaRing] NuvaRing 0.12-0.015 MG/24HR NuvaRing 0.12-0.015 MG/24HR 12/18/2020 12:00:00 AM EDT active NuvaRing 0.12-0.015 MG/24HR eCW1 ([facility]) 21 DAY Ethinyl Estradiol 0.819380 MG/HR / Etonogestrel 0.005 MG/HR Vaginal Ring [NuvaRing] NuvaRing 0.12-0.015 MG/24HR NuvaRing 0.12-0.015 MG/24HR 12/18/2020 12:00:00 AM EDT active NuvaRing 0.12-0.015 MG/24HR eCW1 ([facility]) 300 mg 12/09/2020 12:00:00 AM EDT capsule 20 TAKE ONE CAPSULE BY MOUTH EVERY 12 HOURS FOR 10 DAYS TAKE ONE CAPSULE BY MOUTH EVERY 12 HOURS FOR 10 DAYS S OLD: 12/09/2020 [facility] cefdinir 300 MG Oral Capsule Cefdinir 12/09/2020 12:00:00 AM EDT ORAL completed [facility] ([facility]) 0.3 % 11/22/2020 12:00:00 AM EDT drops 5 INSTILL 1 TO 2 DROPS TO THE AFFECTED EYE 3 TIMES A DAY FOR 7 DAYS INSTILL 1 TO 2 DROPS TO THE AFFECTED EYE 3 TIMES A DAY FOR 7 DAYS SOLD: 11/22/2020 [facility] Tobramycin 3 MG/ML Ophthalmic Solution Tobramycin 11/22/2020 12:0 0:00 AM EDT completed MEDENT ([facility]) Tri-Lo-Carri 28 Day Pack 0.18/0.215/0.25 mg-25 mcg NORG ESTIMATE-ETHINYL ESTRADIOL 10/29/2020 12:00:00 AM EST tablet 28 TAKE ONE TABLET BY MOUTH EVERY DAY TAKE ONE TABLET BY MOUTH EVERY DAY SOLD: 11/19/2020 [facility] 90 mcg/actuation 10/17/2020 12:00:00 AM EST HFA aerosol inha ler 18 INHALE ONE PUFF BY MOUTH EVERY 4 HOURS NEEDED INHALE ONE PUFF BY MOUTH EVERY 4 HOURS NEEDED SOLD: 11/22/2020 [facility] Albuterol Sulfate HFA 108 (90 Base) MCG/ACT Albuterol Sulfate HFA 108 (90 Base) MCG/ACT 10/17/2020 12:00:00 AM EST 1.0 {puff_as_needed} active Albuterol Sulfate HFA 108 (90 Base) MCG/ACT eCW1 ([facility]) Albuterol Sulfate HFA 108 (90 Base) MCG/ACT Albuterol Sulfate HFA 108 (90 Base) MCG/ACT 10/17/2020 12:00:00 AM EST 1.0 {puff_as_needed} active Albuterol Sulfate HFA 108 (90 Base) MCG/ACT eCW1 ([facility]) Albuterol Sulfate HFA 108 (90 Base) MCG/ACT Albuterol Sulfate HFA 108 (90 Base) MCG/ACT 10/17/2020 12:00:00 AM EST 1.0 {puff_as_needed} active Albuterol Sulfate HFA 108 (90 Base) MCG/ACT eCW1 ([facility]) Albuterol Sulfate HFA 108 (90 Base) MCG/ACT Albuterol Sulfate HFA 108 (90 Base) MCG/ACT 10/17/2020 12:00:00 AM EST 1.0 {puff_as_needed} active Albuterol Sulfate HFA 108 (90 Base) MCG/ACT eCW1 ([facility]) Albuterol Sulfate HFA 108 (90 Base) MCG/ACT Albuterol Sulfate HFA 108 (90 Base) MCG/ACT 10/17/2020 12:00:00 AM EST 1.0 {puff_as_needed} active Albuterol Sulfate HFA 108 (90 Base) MCG/ACT eCW1 ([facility]) 90 mcg/actuation 10/17/2020 12:00:00 AM EST HFA aerosol inha ler 18 INHALE ONE PUFF BY MOUTH EVERY 4 HOURS NEEDED INHALE ONE PUFF BY MOUTH EVERY 4 HOURS NEEDED SOLD: 10/17/2020 [facility] Albuterol Sulfate HFA 108 (90 Base) MCG/ACT Albuterol Sulfate HFA 108 (90 Base) MCG/ACT 10/17/2020 12:00:00 AM EST 1.0 {puff_as_needed} active Albuterol Sulfate HFA 108 (90 Base) MCG/ACT eCW1 ([facility]) Albuterol Sulfate HFA 108 (90 Base) MCG/ACT Albuterol Sulfate HFA 108 (90 Base) MCG/ACT 10/17/2020 12:00:00 AM EST 1.0 {puff_as_needed} active Albuterol Sulfate HFA 108 (90 Base) MCG/ACT eCW1 ([facility]) Albuterol Sulfate HFA 108 (90 Base) MCG/ACT Albuterol Sulfate HFA 108 (90 Base) MCG/ACT 10/17/2020 12:00:00 AM EST 1.0 {puff_as_needed} active Albuterol Sulfate HFA 108 (90 Base) MCG/ACT eCW1 ([facility]) Sertraline 50 MG Oral Tablet Sertraline HCl 50 MG Sertraline HCl 50 MG 10/10/2020 12:00:00 AM EST 1.0 {tablet} active Sertraline HCl 50 MG eCW1 ([facility]) Sertraline 50 MG Oral Tablet Sertraline HCl 50 MG Sertraline HCl 50 MG 10/10/2020 12:00:00 AM EST 1.0 {tablet} active Sertraline HCl 50 MG eCW1 ([facility]) Sertraline 50 MG Oral Tablet Sertraline HCl 50 MG Sertraline HCl 50 MG 10/10/2020 12:00:00 AM EST 1.0 {tablet} active Sertraline HCl 50 MG eCW1 ([facility]) Sertraline 50 MG Oral Tablet Sertraline HCl 50 MG Sertraline HCl 50 MG 10/10/2020 12:00:00 AM EST 1.0 {tablet} active Sertraline HCl 50 MG eCW1 ([facility]) Sertraline 50 MG Oral Tablet Sertraline HCl 50 MG Sertraline HCl 50 MG 10/10/2020 12:00:00 AM EST 1.0 {tablet} active Sertraline HCl 50 MG eCW1 ([facility]) Sertraline 50 MG Oral Tablet Sertraline HCl 50 MG Sertraline HCl 50 MG 10/10/2020 12:00:00 AM EST 1.0 {tablet} active Sertraline HCl 50 MG eCW1 ([facility]) Sertraline 50 MG Oral Tablet Sertraline HCl 50 MG Sertraline HCl 50 MG 10/10/2020 12:00:00 AM EST 1.0 {tablet} active Sertraline HCl 50 MG eCW1 ([facility]) 50 mg 10/10/2020 12:00:00 AM EST tablet 30 TAKE ONE TABLET BY MOUTH EVERY DAY TAKE ONE TABLET BY MOUTH EVERY DAY SOLD: 11/22/2020 [facility] 50 mg 10/10/2020 12:00:00 AM EST tablet 30 TAKE ONE TABLET BY MOUTH EVERY DAY TAKE ONE TABLET BY MOUTH EVERY DAY SOLD: 10/11/2020 [facility] Misoprostol 0.2 MG Oral Tablet 200 mcg MISOPROSTOL 12:00:00 AM EST tablet 1 TAKE ONE TABLET BY MOUTH 3 HOURS PRIOR TO PROCEDURE TAKE ONE TABLET BY MOUTH 3 HOURS PRIOR TO PROCEDURE SOLD: 09/25/2020 [facility] Misoprostol 0.2 MG Oral Tablet Misoprostol 200 MCG Misoprost ol 200 MCG 09/19/2020 12:00:00 AM EST suspended Misoprostol 200 MCG eCW1 ([facility]) Misoprostol 0.2 MG Oral Tablet Misoprostol 200 MCG Misoprost ol 200 MCG 09/19/2020 12:00:00 AM EST suspended Misoprostol 200 MCG eCW1 ([facility]) Kyleena 19.5 MG Kyleena 19.5 MG 09/19/2020 12:00:00 AM EST suspended Kyleena 19.5 MG eCW1 ([facility]) Kyleena 19.5 MG Kyleena 19.5 MG 09/19/2020 12:00:00 AM EST suspended Kyleena 19.5 MG eCW1 ([facility]) Misoprostol 0.2 MG Oral Tablet Misoprostol 200 MCG Misoprost ol 200 MCG 09/19/2020 12:00:00 AM EST suspended Misoprostol 200 MCG eCW1 ([facility]) Kyleena 19.5 MG Kyleena 19.5 MG 09/19/2020 12:00:00 AM EST suspended Kyleena 19.5 MG eCW1 ([facility]) Misoprostol 0.2 MG Oral Tablet Misoprostol 200 MCG Misoprost ol 200 MCG 09/19/2020 12:00:00 AM EST suspended Misoprostol 200 MCG eCW1 ([facility]) Kyleena 19.5 MG Kyleena 19.5 MG 09/19/2020 12:00:00 AM EST suspended Kyleena 19.5 MG eCW1 ([facility]) Misoprostol 0.2 MG Oral Tablet Misoprostol 200 MCG Misoprost ol 200 MCG 09/19/2020 12:00:00 AM EST suspended Misoprostol 200 MCG eCW1 ([facility]) Kyleena 19.5 MG Kyleena 19.5 MG 09/19/2020 12:00:00 AM EST suspended Kyleena 19.5 MG eCW1 ([facility]) Misoprostol 0.2 MG Oral Tablet Misoprostol 200 MCG Misoprost ol 200 MCG 09/19/2020 12:00:00 AM EST suspended Misoprostol 200 MCG eCW1 ([facility]) Kyleena 19.5 MG Kyleena 19.5 MG 09/19/2020 12:00:00 AM EST suspended Kyleena 19.5 MG eCW1 ([facility]) Kyleena 19.5 MG Kyleena 19.5 MG 09/19/2020 12:00:00 AM EST suspended Kyleena 19.5 MG eCW1 ([facility]) Kyleena 19.5 MG Kyleena 19.5 MG 09/19/2020 12:00:00 AM EST suspended Kyleena 19.5 MG eCW1 ([facility]) Misoprostol 0.2 MG Oral Tablet Misoprostol 200 MCG Misoprost ol 200 MCG 09/19/2020 12:00:00 AM EST active Misoprostol 200 MCG eCW1 ([facility]) Misoprostol 0.2 MG Oral Tablet Misoprostol 200 MCG Misoprost ol 200 MCG 09/19/2020 12:00:00 AM EST suspended Misoprostol 200 MCG eCW1 ([facility]) Misoprostol 0.2 MG Oral Tablet Misoprostol 200 MCG Misoprost ol 200 MCG 09/19/2020 12:00:00 AM EST suspended Misoprostol 200 MCG eCW1 ([facility]) Misoprostol 0.2 MG Oral Tablet Misoprostol 200 MCG Misoprost ol 200 MCG 09/19/2020 12:00:00 AM EST suspended Misoprostol 200 MCG eCW1 ([facility]) Kyleena 19.5 MG Kyleena 19.5 MG 09/19/2020 12:00:00 AM EST suspended Kyleena 19.5 MG eCW1 ([facility]) Misoprostol 0.2 MG Oral Tablet Misoprostol 200 MCG Misoprost ol 200 MCG 09/19/2020 12:00:00 AM EST suspended Misoprostol 200 MCG eCW1 ([facility]) Kyleena 19.5 MG Kyleena 19.5 MG 09/19/2020 12:00:00 AM EST suspended Kyleena 19.5 MG eCW1 ([facility]) Kyleena 19.5 MG Kyleena 19.5 MG 09/19/2020 12:00:00 AM EST active Kyleena 19.5 MG eCW1 ([facility]) Ortho Tri-Cyclen Lo 0.18/0.215/0.25 MG-25 MCG UNK 08/22/20 12:00:00 AM EST 1.0 {tablet} active Ortho Tri-Cyclen Lo 0.18/0.215/0.25 MG-25 MCG eCW1 ([facility]) Ortho Tri-Cyclen Lo 0.18/0.215/0.25 MG-25 MCG UNK 08/22/20 12:00:00 AM EST 1.0 {tablet} suspended Ortho Tri-Cyclen Lo 0.18/0.215/0.25 MG-25 MCG eCW1 ([facility]) Ortho Tri-Cyclen Lo 0.18/0.215/0.25 MG-25 MCG UNK 08/22/20 12:00:00 AM EST 1.0 {tablet} suspended Ortho Tri-Cyclen Lo 0.18/0.215/0.25 MG-25 MCG eCW1 ([facility]) Ortho Tri-Cyclen Lo 0.18/0.215/0.25 MG-25 MCG UNK 08/22/20 12:00:00 AM EST 1.0 {tablet} suspended Ortho Tri-Cyclen Lo 0.18/0.215/0.25 MG-25 MCG eCW1 ([facility]) Tri-Lo-Carri 28 Day Pack 0.18/0.215/0.25 mg-25 mcg NORG ESTIMATE-ETHINYL ESTRADIOL 08/22/2020 12:00:00 AM EST tablet 28 TAKE 1 TA BLET BY MOUTH ONCE A DAY TAKE 1 TABLET BY MOUTH ONCE A DAY SOLD: 08/23/2020 [facility] Tri-Lo-Carri 28 Day Pack 0.18/0.215/0.25 mg-25 mcg NORG ESTIMATE-ETHINYL ESTRADIOL 08/22/2020 12:00:00 AM EST tablet 28 TAKE 1 TA BLET BY MOUTH ONCE A DAY TAKE 1 TABLET BY MOUTH ONCE A DAY SOLD: 09/25/2020 [facility] Ortho Tri-Cyclen Lo 0.18/0.215/0.25 MG-25 MCG UNK 08/22/20 12:00:00 AM EST 1.0 {tablet} suspended Ortho Tri-Cyclen Lo 0.18/0.215/0.25 MG-25 MCG eCW1 ([facility]) Ortho Tri-Cyclen Lo 0.18/0.215/0.25 MG-25 MCG UNK 08/22/20 12:00:00 AM EST 1.0 {tablet} suspended Ortho Tri-Cyclen Lo 0.18/0.215/0.25 MG-25 MCG eCW1 ([facility]) Oxycodone Hydrochloride 5 MG Oral Tablet Oxycodone HCL 05/30/2020 12:00:00 AM EDT ORAL active [facility] ([facility]) Oxycodone Hydrochloride 5 MG Oral Tablet Oxycodone HCL 05/30/2020 12:00:00 AM EDT ORAL completed [facility] ([facility]) 5 mg 05/30/2020 12:00:00 AM EDT tablet 30 TAKE 1-2 TABLETS BY MOUTH EVERY 4 HOURS NEEDED FOR POST SURGICAL PAIN MAXIMUM DAILY DOSE = 8 TABLETS TAKE 1-2 TABLETS BY MOUTH EVERY 4 HOURS NEEDED FOR POST SURGICAL PAIN MAXIMUM DAILY DOSE = 8 TABLETS SOLD: 05/30/2020 [facility] 20 mg 04/24/2020 12:00:00 AM EDT capsule 30 TAKE 1 CAPSULE BY MOUTH EVERY DAY WITH 10MG CAPSULE FOR DAILY TOTAL OF 30MG TAKE 1 CAPSULE BY MOUTH EVERY DAY WITH 10MG CAPSULE FOR DAILY TOTAL OF 30MG SOLD: 08/23/2020 [facility] 20 mg 04/24/2020 12:00:00 AM EDT capsule 30 TAKE 1 CAPSULE BY MOUTH EVERY DAY WITH 10MG CAPSULE FOR DAILY TOTAL OF 30MG TAKE 1 CAPSULE BY MOUTH EVERY DAY WITH 10MG CAPSULE FOR DAILY TOTAL OF 30MG SOLD: 09/25/2020 [facility] 10 mg 04/24/2020 12:00:00 AM EDT capsule 30 TAKE 1 CAPSULE BY MOUTH DAILY ALONG WITH 20MG CAPSULE FOR DAILY TOTAL OF 30MG TAKE 1 CAPSULE BY MOUTH DAILY ALONG WITH 20MG CAPSULE FOR DAILY TOTAL OF 30MG SOLD: 08/23/2020 [facility] 20 mg 04/24/2020 12:00:00 AM EDT capsule 30 TAKE 1 CAPSULE BY MOUTH EVERY DAY WITH 10MG CAPSULE FOR DAILY TOTAL OF 30MG TAKE 1 CAPSULE BY MOUTH EVERY DAY WITH 10MG CAPSULE FOR DAILY TOTAL OF 30MG SOLD: 07/04/2020 [facility] 10 mg 04/24/2020 12:00:00 AM EDT capsule 30 TAKE 1 CAPSULE BY MOUTH DAILY ALONG WITH 20MG CAPSULE FOR DAILY TOTAL OF 30MG TAKE 1 CAPSULE BY MOUTH DAILY ALONG WITH 20MG CAPSULE FOR DAILY TOTAL OF 30MG SOLD: 09/25/2020 [facility] 20 mg 04/24/2020 12:00:00 AM EDT capsule 30 TAKE 1 CAPSULE BY MOUTH EVERY DAY WITH 10MG CAPSULE FOR DAILY TOTAL OF 30MG TAKE 1 CAPSULE BY MOUTH EVERY DAY WITH 10MG CAPSULE FOR DAILY TOTAL OF 30MG SOLD: 05/30/2020 [facility] 10 mg 04/24/2020 12:00:00 AM EDT capsule 30 TAKE 1 CAPSULE BY MOUTH DAILY ALONG WITH 20MG CAPSULE FOR DAILY TOTAL OF 30MG TAKE 1 CAPSULE BY MOUTH DAILY ALONG WITH 20MG CAPSULE FOR DAILY TOTAL OF 30MG SOLD: 05/30/2020 [facility] 10 mg 04/24/2020 12:00:00 AM EDT capsule 30 TAKE 1 CAPSULE BY MOUTH DAILY ALONG WITH 20MG CAPSULE FOR DAILY TOTAL OF 30MG TAKE 1 CAPSULE BY MOUTH DAILY ALONG WITH 20MG CAPSULE FOR DAILY TOTAL OF 30MG SOLD: 07/04/2020 [facility] Insurance Providers Payer name Policy type / Coverage type Policy ID Covered republican ID Covered republican's relationship to motley Policy [place] Plan Information Medicaid S [id number] S [id number] D Managed Care [employer] P [id number] S [id number] D Managed Care [employer] O [id number] S [id number] Managed Care BCBS O [id number] S [id number] Medicaid Dental S [id number] Managed Care [facility] P [id number] S [id number] Managed Care - Community Plan [facility] P [id number] S [id number] [facility] -P P [id number] S [id number] [facility] [id number] SP [id number] [facility] -P P [id number] S [id number] Managed Care - Community Plan [facility] P [id number] S [id number] Medicaid S [id number] S [id number] Managed Care - Community Plan [facility] P [id number] S [id number] Pupil Benefits (pr) Commercial ~~11/22/17 [id number] [id number] Self ~~11/22/17 Pupil Benefits (pr) Commercial [id number] Self [id number] [facility] Community [facility] Commercial [id number] Self [id number] Pupil Benefits (pr) Commercial [id number] Self [id number] [facility] Community Plan Medigap Part B [id number] Self [id number] [facility] Community Plan Medigap Part B [id number] Self [id number] [employer] -CHP P [id number] S [id number] [employer] -CHP P [id number] S [id number] [employer] -CHP P [id number] S [id number] [employer] -CHP P [id number] S [id number] [employer] -CHP P [id number] S [id number] [facility] Commercial Insurance Co. [id number] Self [id number] [facility] Commercial Insurance Co. [id number] Self [id number] D Managed Care [employer] O [id number] S [id number] D Managed Care [employer] P [id number] S [id number] [employer] P [id number] S [id number] [employer] COMMUNITY PLAN MCDHMO [id number] SP [id number] [employer] COMMUNITY PLAN MCDHMO [id number] SP [id number] [employer] COMMUNITY PLAN MCDHMO [id number] SP [id number] UN[employer] COMMUNITY PLAN XIX [id number] 18 [id number] UN[employer] COMMUNITY PLAN XIX [id number] UNHC COMMUNITY PLAN XIX [id number] 18 [id number] UNHC COMMUNITY PLAN MCDHMO [id number] SP [id number] [facility]) O [id number] S [id number] [facility] #[id number] S [id number] [employer] COMMUNITY PLAN MCDHMO [id number] SP [id number] [employer] COMMUNITY PLAN MCDHMO [id number] SP [id number] [facility] [place] [facility] Health Maintenance Organization [place] [place] [id number] Self [id number] [employer]ARE(MCAID) O [id number] S [id number] [employer](MCAID) O [id number] S [id number] [facility] (O) [id number] Self [id number] [employer] MCDHMO [id number] SP [id number] MEDICAID [id number] SP [id number] MEDICAID M [id number] S [id number] United [facility] Health Maintenance Organization [place] [place] [id number] Self [id number] [facility] O [id number] C [id number] [facility] Maintenance [facility] ([facility] [place] [id number] Self [id number] [facility] [id number] SP [id number] Self Pay P UNAVAILABLE S UNAVAILA BLE Managed Care - [facility] S [id number] S [id number] [facility] O [id number] S [id number] Problems, Conditions, and Diagnoses Code Display Name Description Problem Type Effective Dates Data Source(s) N48230 Unspecified asthma, uncomplicated Unspecified as thma, uncomplicated Diagnosis 05/10/2021 03:24:00 PM EDT [facility] K219 Gastro-esophageal reflux disease without esophagitis Gastro-esophageal reflux disease without esophagitis Diagnosis 05/10/2021 03:24:00 PM ED T [facility] R1013 Epigastric pain Epigastric pain Diagnosis 05/10/2021 03:2 4:00 PM EDT [facility] N92.6 Menstrual disorder Irregular menses Problem 03/12/2021 12:00:00 AM EDT eCW1 ([facility]) J45.30 Mild persistent asthma Mild persistent asthma Problem 01/15/2021 12:00:00 AM EDT MED[facility] ([facility], ) N91.2 Amenorrhea Amenorrhea Problem 12/18/2020 12:00:00 AM ED T eCW1 ([facility]) R06.02 Dyspnea Dyspnea Problem 12/18/2020 12:00:00 AM ED T [facility] ([facility], ) R05 Cough Cough Problem 12/18/2020 12:00:00 AM ED T [facility] ([facility], ) Surgeries/Procedures Procedure Description Date Indications Data Source(s) OFFICE OUTPATIENT NEW 45 MINUTES 07/03/2021 12:00:00 A M EDT MEDDERRICK ([facility], ) URINE TEST 03/12/2021 12:00:00 AM EDT eCW1 ([facility]) OFFICE OUTPATIENT VISIT 15 MINUTES 02/26/2021 12:00:00 AM EDT MED[facility] ([facility]) Spirometry 02/19/2021 12:00:00 AM EDT M EDENT ([facility]) OFFICE OUTPATIENT VISIT 15 MINUTES 02/19/2021 12:00:00 AM EDT [facility] ([facility]) DEMO&/EVAL OF PT UTILIZ AERSL GEN/NEB/INHLR/IPPB 01/15 12:00:00 AM EDT [facility] ([facility]) OFFICE OUTPATIENT VISIT 25 MINUTES 01/15/2021 12:00:00 AM EDT [facility] ([facility]) Bronchospasm Evaluation 01/10/2021 12:00:00 AM EDT [facility] ([facility]) Plethysmography Determination Lung Volumes & Per Airway Resi st 01/10/2021 12:00:00 AM EDT [facility] DIFFUSING CAPACITY 01/10/2021 12:00:00 AM EDT [facility] ([facility]) Spirometry 12/18/2020 12:00:00 AM EDT M EDENT ([facility]) OFFICE OUTPATIENT VISIT 15 MINUTES 12/09/2020 12:00:00 AM EDT [facility] ([facility]) OFFICE OUTPATIENT VISIT 15 MINUTES 11/22/2020 12:00:00 AM EDT [facility] ([facility]) THERAPEUTIC PX 1/> AREAS EACH 15 MIN EXERCISES 021 12:00:00 AM EST [facility] ([facility]) Therapeutic Activities Direct, Each 15 Minutes 021 12:00:00 AM EST [facility] ([facility]) THERAPEUTIC PX 1/> AREAS EACH 15 MIN EXERCISES 021 12:00:00 AM EST [facility] ([facility]) Therapeutic Activities Direct, Each 15 Minutes 021 12:00:00 AM EST [facility] ([facility]) THERAPEUTIC PX 1/> AREAS EACH 15 MIN EXERCISES 12:00:00 AM EST [facility] ([facility] ) Therapeutic Activities Direct, Each 15 Minutes 12:00:00 AM EST [facility] ([facility] ) THERAPEUTIC PX 1/> AREAS EACH 15 MIN EXERCISES 12:00:00 AM EST [facility] ([facility] ) Therapeutic Activities Direct, Each 15 Minutes 12:00:00 AM EST [facility] ([facility] ) Therapeutic Activities Direct, Each 15 Minutes 12:00:00 AM EST [facility] ([facility] ) ECG ROUTINE ECG W/LEAST 12 LDS W/I&R 10/10/2020 12:00: 00 AM EST eCW1 ([facility]) THERAPEUTIC PX 1/> AREAS EACH 15 MIN EXERCISES 12:00:00 AM EST [facility] ([facility] ) THERAPEUTIC PX 1/> AREAS EACH 15 MIN EXERCISES 12:00:00 AM EST [facility] ([facility] ) THERAPEUTIC PX 1/> AREAS EACH 15 MIN EXERCISES 12:00:00 AM EST [facility] ([facility] ) THERAPEUTIC PX 1/> AREAS EACH 15 MIN EXERCISES 12:00:00 AM EST [facility] ([facility]) THERAPEUTIC PX 1/> AREAS EACH 15 MIN EXERCISES 12:00:00 AM EST [facility] ([facility]) APPLICATION MODALITY 1/> AREAS HOT/COLD PACKS 09/03/20 12:00:00 AM EST [facility] ([facility]) THERAPEUTIC PX 1/> AREAS EACH 15 MIN EXERCISES 12:00:00 AM EST [facility] ([facility]) THERAPEUTIC PX 1/> AREAS EACH 15 MIN EXERCISES 12:00:00 AM EST [facility] ([facility]) APPLICATION MODALITY 1/> AREAS HOT/COLD PACKS 08/23/20 20 12:00:00 AM EST [facility] ([facility]) THERAPEUTIC PX 1/> AREAS EACH 15 MIN EXERCISES 12:00:00 AM EST [facility] ([facility]) THERAPEUTIC PX 1/> AREAS EACH 15 MIN EXERCISES 12:00:00 AM EST [facility] ([facility] ) THERAPEUTIC PX 1/> AREAS EACH 15 MIN EXERCISES 12:00:00 AM EST [facility] ([facility]) THERAPEUTIC PX 1/> AREAS EACH 15 MIN EXERCISES 12:00:00 AM EST [facility] ([facility]) Physical Therapy Eval - Low Complexity 07/26/2020 12:0 0:00 AM EST [facility] ([facility]) APPLICATION SHORT LEG CAST BELOW KNEE-TOE 06/13/2020 1 2:00:00 AM EDT MED[facility] ([facility]) RPR PRIM DISRUPTED LIGM ANKLE BTH COLTRL LIGMS 12:00:00 AM EDT MED[facility] ([facility]) Results ID Date Data Source [id number] 06/28/2021 07:00:00 PM EDT [facility] Name Value Range Interpretation Code Description Data Karolina rce(s) Supporting Document(s) SARS-CoV-2 RNA Resp Ql ANNA+probe NOT DETECTED [facility] This lab was ordered by MELONY mcguire and reported by MELONY Duque. ID Date Data Source [id number] 05/10/2021 08:36:00 PM EDT [facility] [address] [place] [address] PHONE: [phone] FAX: [phone] Name .................. : ALEM Lin Acct Number.................. : [id number] ROOM. ................. : TR-05 MR Number ................... : [id number] Stay type ............. : E/R Discharge Date......... ... : Admit Date ......... : 05/10/21 Admit Phys .................... : JUAN MIGUELRM Date of ....... : 2000 Family Phys ................... : EMMA MARK Phone .................. : [phone] Age ................................ : 20 Film# .................. .:[id number] Sex ................................. : F Unsigned transcriptions are preliminary reports and do not represent a medical or legal document ABD LIMITED [id number] COMPLETE:05/10/21 17:05 [facility] [id number] Reason(s): RUQ Pain ULTRASOUND RIGHT UPPER QUADRANT INDICATION: Right upper quadrant pain COMPARISON: None FINDINGS: LIVER: Normal echogenicity. No focal lesions identified. GALLBLADDER/BILIARY: No gallstones or gallbladder wall thickening. No pericholecystic fluid. The bile ducts are non-dilated. Common duct diameter 3 mm. PANCREAS: Poorly visualized. No indication of ductal dilatation at the pancreatic neck. RIGHT KIDNEY: no significant abnormality. IMPRESSION: No hepatobiliary abnormalities noted. Limited pancreas visualization. Electronically Reviewed and Signed By Karthikeyan Reed MD , 05/10/21 20:36, SCB Transcribe Initials: LITO , Transcribe Date: 05/10/21 17:35, Dictation Date: Copy for: EMERGENCY DEPT via modem Copy for: 710 MED REC DISCHARGED Page 1 of 1 Name Value Range Interpretation Code Description Data Karolina rce(s) Supporting Document(s) ID Date Data Source [id number] 05/10/2021 03:24:00 PM EDT [facility] 1 OrderSheet [facility] Emergency Department [address] [place] [address] Phone #: ext- [phone] 05/10/2021 15:23 Patient: THA FERRARA Sex: F : 2000 Age: 20yWEIGHT:106.1 kg (S) HEIGHT:62 inches (S) BMI:42.8ALLERGIES: AugmentinCHIEF COMPLAINT: abdominal painDIAGNOSIS: Abdominal pain, Gastroesophageal reflux diseaseLAB ORDERSOrder Description Priority Entered Acknowledged InitialedCBC w Diff STAT 15:46 05/10/2021 15:51 James Lobo Norma MD; Marylu R.N.CMP STAT 15:46 05/10/2021 15:51 James Lobo Norma MD; Marylu R.N.Lactic Acid STAT 15:46 05/10/2021 15:51 James Lobo Norma MD; Marylu R.N.Lipase STAT 15:46 05/10/2021 15:51 James Lobo Norma MD; Marylu R.N.Urinalysis (Clean STAT 15:46 05/10/2021 15:50 Guillermo Badillo) Sindi Ramirez MD; Nida Rahman [id number] Serum Qual STAT 15:46 05/10/2021 15:51 James Lobo Norma MD; Marylu R.N.DIAGNOSTIC STUDY ORDERSOrder Description Priority Entered Acknowledged InitialedUS Abdomen STAT 15:58 05/10/2021 Ack'd: 16:10 16:46 Yamil,Limited Sindi Ramirez MD; Marylu Lobo R.NMartha(Oxygen?(No)) R.N. Reason for Study: RUQ PainMEDICATION/IV/DRIP/FLUID ORDERSOrder Description Priority Entered Acknowledged InitialedIV NS 1000 mL 15:58 05/10/2021 Ack'd: 16:10 17:23 Yamil,Bolus : Bolus 1000 Sindi Ramirez MD; Marylu Lobo.NMarthamL (X1) R.N.Zofran IVP 4 mg 15:58 05/10/2021 Ack'd: 16:10 17:24 James Lobo Norma MD; Marylu Lobo R.N., R.N. 2 OrderSheet [facility] Emergency Department [address] [place] [address] Phone #: ext- [phone] 05/10/2021 15:23 Patient: THA FERRARA Sex: F : 2000 Age: 20yGENERAL ORDERSOrder Description Priority Entered Acknowledged Initialed[Electronically signed by Marylu Lobo R.N. (18:20 05/10/2021)][Electronically signed by Sindi Ramirez MD (20:12 05/10/2021)][Electronically locked by Marylu Lobo R.N. (18:20 05/10/2021)] Name Value Range Interpretation Code Description Data Karolina rce(s) Supporting Document(s) ID Date Data Source [id number] 05/10/2021 03:24:00 PM EDT [facility] 1 Medication Reconciliation Report [facility] Emergency Department [address] [place] [address] Phone #: ext- [phone] 05/10/2021 15:23 Patient: THA FERRARA Sex: F : 2000 Age: 20yWeight: 106.1 kgHeight/Length: 62 in.BMI: 42.8ALLERGIES: AugmentinThe patient's Home Medications are listed below:CONTINUE TAKING THE FOLLOWING MEDICATIONS: Arnuity Ellipta Inhalation, daily Sertraline HCl Oral 25 mg, dailyThe source(s) of the original Home Medication information:Not obtained.The following Medications were given to the patient in the Emergency Department:NS [IV] IV Fluids bolus 1000 mL wide open, administered: 17:18 05/10/2021Zofran [IVP] IVP 4 mg, administered: 17:19 05/10/2021The following Medications were prescribed to the patient:Protonix 40 mg tablet,delayed release Take 1 tablet once a day for 30 days -- Dispense 30 tablet.Refills: 1. Substitution permitted.Pharmacy - [facility] [id number] ; [place] [id number]. . -- Sindi Ramirez MD Name Value Range Interpretation Code Description Data Karolina rce(s) Supporting Document(s) ID Date Data Source [id number] 05/10/2021 03:24:00 PM EDT [facility] 1 Medication Administration Record [facility] Emergency Department [address] [place] [address] Phone #: ext- [phone] 05/10/2021 15:23 Patient: THA FERRARA Sex: F : 2000 Age: 20yWeight: 106.1 kgHeight/Length: 62 inBMI: 42.8ALLERGIES: Augmentin Date/Time Medication Administered Medication OrderedStart NS [IV] IV NS 1000 mL Bolus : Bolus [id number] 05/10/2021 Dose: IV Fluids mL (X1)Marylu Lobo RMarthaNMartha Bolus: 1000 mL wide open---- Dispensed: 1000 mL bagStop Site: #1 right AC18:13 05/10/2021Marylu Lobo RErvinGiven ZOFRAN [IVP] (ONDANSETRON HCL) Zofran IVP 4 mg17:19 05/10/2021 Dose: 4 mg IVPMarylu Lobo RMarthaN. Site: #1 right AC Name Value Range Interpretation Code Description Data Karolina rce(s) Supporting Document(s) ID Date Data Source [id number] 05/10/2021 03:24:00 PM EDT [facility] 1 General Instructions [facility] Emergency Department [address] [place] [address] Phone #: ext- [phone] 05/10/2021 15:23 Patient: THA FERRARA Sex: F : 2000 Age: 20yAcute epigastric abdominal pain.Gastroesophageal reflux disease.INSTRUCTIONSDrink plenty of fluids.(Please follow up with your primary care physician. I sent a prescription to your pharmacy on file for refluxmedicine.).Warnings: Further evaluation is necessary.GENERAL WARNINGS: Return or contact your physician immediately if your condition worsens orchanges unexpectedly, if not improving as expected, or if other problems arise.Your Current Medications: Your current home medications have been reviewed.CONTINUE TAKING THE FOLLOWING MEDICATIONS:Arnuity Ellipta Inhalation : daily.Sertraline HCl Oral : 25 mg daily.Prescription Medications:Protonix 40 mg tablet,delayed release Take 1 tablet once a day for 30 days -- Dispense 30 tablet.Refills: 1. Substitution permitted.Pharmacy - [facility] [id number] ; [place] [address]. .Follow-up:Follow up with your doctor Wednesday even if well. Call for an appointment. Reason for referral: evaluation.Summary of care provided to patient via paper.Understanding of the discharge instructions verbalized by patient. ADDITIONAL INFORMATIONUnknown Causes of Abdominal Pain (Female) 2 General Instructions [facility] Emergency Department [address] [place] [address] Phone #: ext- [phone] 05/10/2021 15:23 Patient: THA FERRARA Sex: F : 2000 Age: 20yThe exact cause of your belly (abdominal) pain is not clear. This does not mean that this is somethingto worry about. Everyone likes to know the exact cause of the problem. But sometimes with bellypain, there is no clear- cut cause, and this could be a good thing. The good news is that yoursymptoms can be treated, and you will feel better.Your condition does not seem serious now. But sometimes the signs of a serious problem may takemore time to appear. For this reason, it is important for you to watch for any new symptoms,problems, or worsening of your condition.Over the next few days, the abdominal pain may come and go. Or it may be constant. Other commonsymptoms can include nausea and vomiting. Sometimes it can be difficult to tell if you feel nauseous.You may just feel bad and not connect that feeling to nausea. Constipation, diarrhea, and a fever maygo along with the pain.The pain may continue even if treated correctly over the following days. Depending on how things go,sometimes the cause can become clear and may need more or different treatment. Additionalevaluations, medicines, or tests may also be needed.Home careYour healthcare provider may prescribe medicine for pain, symptoms, or an infection. Follow thehealthcare provider's instructions for taking these medicines. 3 General Instructions [facility] Emergency Department [address] [place] [address] Phone #: ext- [phone] 05/10/2021 15:23 Patient: THA FERRARA Sex: F : 2000 Age: 20yGeneral care Rest as much as you can until your next exam. No strenuous activities. Try to find positions that ease discomfort. A small pillow placed on the abdomen may help relieve pain. Something warm on your abdomen (such as a heating pad) may help, but be careful not to burn yourself.Diet Don't force yourself to eat, especially if having cramps, vomiting, or diarrhea. Water is important so you don't get dehydrated. Soup may also be good. Sports drinks may also help, especially if they are not too acidic. Don't drink sugary drinks as this can make things worse. Take liquids in small amounts. Don't guzzle them. Caffeine sometimes makes the pain and cramping worse. Don't take dairy products if you have vomiting or diarrhea. Don't eat large amounts at a time. Wait a few minutes between bites. Eat a diet low in fiber (called a low-residue diet). Foods allowed include refined breads, white rice, fruit and vegetable juices without pulp, tender meats. These foods will pass more easily through the intestine. Don't have whole-grain foods, whole fruits and vegetables, meats, seeds and nuts, fried or fatty foods, dairy, alcohol and spicy foods until your symptoms go away.Follow-up careFollow up with your healthcare provider, or as advised, if your pain does not begin to improve in thenext 24 hours.Call [phone] if any of these occur: Trouble breathing Confusion Fainting or loss of consciousness Rapid heart rate 4 General Instructions [facility] Emergency Department [address] [place] [address] Phone #: ext- [phone] 05/10/2021 15:23 Patient: THA FERRARA Sex: F : 2000 Age: 20y SeizureWhen to seek medical adviceCall your healthcare provider right away if any of these occur: Pain gets worse or moves to the right lower abdomen New or worsening vomiting or diarrhea Swelling of the abdomen Unable to pass stool for more than 3 days Fever of 100.4F (38C) or higher, or as directed by your healthcare provider. Blood in vomit or bowel movements (dark red or black color) Yellow color of eyes and skin (jaundice) Weakness, dizziness Chest, arm, back, neck, or jaw pain Unexpected vaginal bleeding or missed period Can't keep down liquids or water and you are getting dehydrated [id number] [employer]. [address] [place] [address]. All rights reserved. This information is not intended as asubstitute for professional medical care. Always follow your healthcare professional's instructions.GERD (Adult) 5 General Instructions [facility] Emergency Department [address] [place] [address] Phone #: [phone]- [phone] 05/10/2021 15:23 Patient: THA FERRARA Sex: F : 2000 Age: 20y The esophagus is a tube that carries food from the mouthto the stomach. A valve (the LES, lower esophageal sphincter) at the lower end of the esophagusprevents stomach acid from flowing upward. When this valve doesn't work properly, stomach contentsmay repeatedly flow back up (reflux) into the esophagus. This is called gastroesophageal refluxdisease (GERD). GERD can irritate the esophagus. It can cause problems with pain, swallowing orbreathing. In severe cases, GERD can cause recurrent pneumonia (from aspiration or breathing inparticles) or other serious problems.Symptoms of reflux include burning, pressure or sharp pain in the upper abdomen or mid to lowerchest. The pain can spread to the neck, back, or shoulder. There may be belching, an acid taste inthe back of the throat, chronic cough, or sore throat, or hoarseness. GERD symptoms often occurduring the day after a big meal. They can also occur at night when lying down.Home careLifestyle changes can help reduce symptoms. If needed, your healthcare provider may prescribemedicines. Symptoms often improve with treatment, but if treatment is stopped, the symptoms oftenreturn after a few months. So most persons with GERD will need to continue treatment or gettreatment on and off.Lifestyle changes 6 General Instructions [facility] Emergency Department [address] [place] [address] Phone #: ext- [phone] 05/10/2021 15:23 Patient: THA FERRARA Sex: F : 2000 Age: 20y Limit or avoid fatty, fried, and spicy foods, as well as coffee, chocolate, mint, and foods with high acid content such as tomatoes and citrus fruit and juices (orange, grapefruit, lemon). Don't eat large meals, especially at night. Frequent, smaller meals are best. Don't lie down right after eating. And don't eat anything 3 hours before going to bed. Don't drink alcohol or smoke. As much as possible, stay away from second hand smoke. If you are overweight, losing weight will reduce symptoms. Don't wear tight clothing around your stomach area. If your symptoms occur during sleep, use a foam wedge to elevate your upper body (not just your head.) Or, place 4" blocks under the head of your bed. Or use 2 bed risers under your bedframe.MedicinesIf needed, medicines can help relieve the symptoms of GERD and prevent damage to the esophagus.Discuss a medicine plan with your healthcare provider. This may include one or more of the followingmedicines: Antacids to help neutralize the normal acids in your stomach. Acid blockers (Histamine or H2 blockers) to decrease acid production. Acid inhibitors (proton pump inhibitors PPIs) to decrease acid production in a different way than the blockers. They may work better, but can take a little longer to take effect.Take an antacid 30 to 60 minutes after eating and at bedtime, but not at the same time as an acidblocker.Try not to take medicines such as ibuprofen and aspirin. If you are taking aspirin for your heart orother medical reasons, talk to your healthcare provider about stopping it.Follow-up careFollow up with your healthcare provider or as advised by our staff.When to seek medical adviceCall your healthcare provider if any of the following occur: Stomach pain gets worse or moves to the lower right abdomen (appendix area) Chest pain appears or gets worse, or spreads to the back, neck, shoulder, or arm An [id number] trial of medicine doesn't relieve your symptoms 7 General Instructions [facility] Emergency Department [address] [place] [address] Phone #: ext- [phone] 05/10/2021 15:23 Patient: THA FERRARA Sex: F : 2000 Age: 20y Weight loss that can't be explained Trouble or pain swallowing Frequent vomiting (can't keep down liquids) Blood in the stool or vomit (red or black in color) Feeling weak or dizzy Fever of 100.4F (38C) or higher, or as directed by your healthcare provider [id number] [employer]. [address] [place] [address]. All rights reserved. This information is not intended as asubstitute for professional medical care. Always follow your healthcare professional's instructions. You have been given the following additional information: Abdominal Pain, Unknown Cause, (Female) GERD (Adult)(Electronically signed by Sindi Rmairez MD 05/10/2021 20:12) Name Value Range Interpretation Code Description Data Karolina rce(s) Supporting Document(s) ID Date Data Source [id number] 05/10/2021 03:24:00 PM EDT [facility] 1 Clinical Report - Nurses [facility] Emergency Department [address] [place] [address] Phone #: ext- [phone] 05/10/2021 15:23 [id number] Sex: F : 2000 Age: 20yTRIAGEArrived by private vehicle. Historian: patient.Acuity: LEVEL 3.Chief Complaint: ABDOMINAL PAIN and DIARRHEA.Alert. No acute distress.Onset. (3 weeks ago). ( PT reports having RUQ pain for 3 weeks that worsens after eating. She also hasbeen having diarrhea 5 times a day and has not had an appetite. She saw her pcp on Wednesday and had anoutpatient ultrasound on Wednesday which came back normal. She is supposed to call her pcp ontday, but the pain has gotten worse.).Treatment DIRECTOR [employer]:Seen within the last 30 days at another facility in the office; seen for similar symptoms; sonogram done.SEPSIS SCREEN: SIRS SCREEN NEGATIVE. SEPSIS SCREEN NEGATIVE. No suspected or confirmedsigns of infection present.MAGNO COMA SCORE: 15- eyes open- spontaneous (4); best verbal response- oriented (5); bestmotor response- obeys commands (6). --15:35 05/10/21 Karma Fox R.N.15:29 05/10/21. BP: 148/81. HR: 90. RR: 16. O2 saturation: 100%. Temp: 98.2 F. Pain level now 7/10.--15:35 05/10/21 Karma Fox R.N.Weight: 106.1 kg stated. Height/Length: 62 inches Per Patient. BMI: 42.8. --15:33 05/10/21 Karma Fox R.N.MedicationsSertraline HCl Oral 25 mg, daily. --15:33 05/10/21 Karma Fox R.N. Arnuity Ellipta Inhalation, daily. --15:34 05/10/21 Karma Fox R.N.AllergiesAugmentin. --15:34 05/10/21 Karma Fox R.N.PROBLEMS:Asthma. --15:34 05/10/21 Karma Fox R.N.ADDITIONAL SURGERIES:Ankle surgery. --15:34 05/10/21 Karma Fox R.N. 2 Clinical Report - Nurses [facility] Emergency Department [address] [place] [address] Phone #: ext [phone] 05/10/2021 15:23 Patient: THA FERRARA Sex: F : 2000 Age: 20y History PAST MEDICAL HX: Last normal menstrual period- Apr 28. Denies current . SOCIAL HX: Never smoker. No alcohol use or drug use. No recent travel. No known contact with a sick individual. She was offered HIV testing but declined and hepatitis C testing but declined. She has not traveled outside the [place] Infectious disease exposure: The patient was not exposed to C- diff, MRSA, VRE, CRE or Coronavirus. SELF HARM ASSESSMENT: Self harm assessment was performed. The patient answered "no" to the question(s) "Have you recently felt down, depressed, or hopeless?", "Do you have thoughts of harming or killing yourself?", "Do you have a plan for harming or killing yourself?", "Have you recently had thoughts about harming or killing others?", "Do you have any dangerous items in your possession?", "Have you noticed less interest or pleasure in doing things?", "Are you here because you tried to hurt yourself?" and "Have you ever tried to hurt yourself before today?". ABUSE ASSESSMENT: No report of abuse. NUTRITIONAL RISK ASSESSMENT: The nutritional risk assessment revealed no deficiencies. FUNCTIONAL ASSESSMENT: Functional assessment: no impairments noted. LEARNING NEEDS ASSESSMENT: The learning needs assessment revealed no barriers. FALL RISK ASSESSMENT: Fall risk assessment completed. No risk factors identified. SKIN INTEGRITY ASSESSMENT: Skin integrity risk assessment completed. No skin integrity risk identified. --15:35 05/10/21 Karma Fox R.N. Interventions Identification and allergy band on patient. To treatment room. --15:35 05/10/21 Karma Fox R.N.PHYSICAL ASSESSMENTlate entry - 15:43 05/10/21. Ambulatory to room.GENERAL / NEURO / PSYCH: Alert. Oriented X 4. Appears in no acute distress.HEENT: Mucous membranes are pink.RESPIRATORY: Respirations not labored. Breath sounds within normal limits.CVS: Normal sinus rhythm noted. Capillary refill less than 2 seconds.GI / : The patient has diarrhea. Abdomen soft. Abdominal tenderness in the upper abdomen, rightupper quadrant and right side of the abdomen. Bowel sounds within normal limits.SKIN: Skin is warm and dry. --15:53 05/10/21 Marylu Lobo R.N.NURSING PROGRESS NOTESTwo patient identifiers checked. Patient ready for evaluation- ED physician notified. --15:36 05/10/21Karma Fox R.N. 3 Clinical Report - Nurses [facility] Emergency Department [address] [place] [address] Phone #: ext- [phone] 05/10/2021 15:23 Patient: THA FERRARA Sex: F : 2000 Age: 20ylate entry - 15:38 05/10/21. Monitoring of patient in place. Patient gowned. Reassurance given. Threepatient identifiers checked. Call light placed in reach. Side rails up x 2. Bed placed in lowest position.Brakes of bed on. Patient ready for evaluation- ED physician notified. --15:53 05/10/21 Marylu Lobo R.N.16:06 05/10/21. BP: 106/67. HR: 87. RR: 16. O2 saturation: 100%. --16:06 05/10/21 Nida Luis ED, ER Tech1Patient transported to sonogram by wheelchair with mask and medical laboratory technologist. --16:46 05/10/21 Marylu Lobo R.N.17:06 05/10/21. BP: 132/79. HR: 82. RR: 16. O2 saturation: 100%. --17:06 05/10/21 [facility] TechNida ER Kgne5wuni entry - 17:05 05/10/21. Patient returned from sonogram by wheelchair with mask and medical laboratory technologist.--17:29 05/10/21 Marylu Lobo R.N.17:13 05/10/2021 Site #1 started via IV i n the right antecubital space with an 20g angiocath, with aseptictechnique and good blood return; four attempts. Saline lock flushed with 10 mL saline. --17:23 05/10/21Marylu Lobo R.N.17:18 05/10/2021 Started bag #1 1000 mL IV Fluids NS; bolus of 1000 mL wide open via site #1 via IVpump. Allergies verified and confirmed 5 rights. IV patency established. IV site checked: no pain, redness,or swelling. IV flushed thoroughly pre- and post-medication administration. Information reviewed withpatient including reason for taking this medication, signs of allergic reaction and precautions. Verbalizesunderstanding. --17:23 05/10/21 Marylu Lobo R.N.17:19 05/10/2021 Zofran (Ondansetron HCl) IVP 4 mg given over 2 minute(s) via site #1. Allergies verifiedand confirmed 5 rights. IV patency established. IV site checked: no pain, redness, or swelling. IV flushedthoroughly pre- and post-medication administration. IVP given by RN. Information reviewed with patientincluding reason for taking this medication, si gns of allergic reaction and precautions. Verbalizesunderstanding. --17:24 05/10/21 Marylu Lobo R.N.Monitoring of patient in place. Patient gowned. Reassurance given.Rounding: Position: states comfortable. Proximity of possessions / care items: call light within easy reach.Plug ins: assured IV pump plugged in; checked status of equipment in use; located all cords, tubes, andlines to prevent fall hazard. Set expectations: advised patient of rounding protocol timing and asked if theyneeded anything else at this time. The patient is calm and resting quietly. Patient waiting for lab andradiology results. --17:29 05/10/21 Marylu Lobo R.N.18:13 05/10/2021 Site #1 removed upon discharge. Catheter intact. Bandage applied. --18:18 05/10/21Marylu Lobo R.N. 4 Clinical Report - Nurses [facility] Emergency Department [address] [place] [address] Phone #: ext- [phone] 05/10/2021 15:23 Patient: THA FERRARA Sex: F : 2000 Age: 20y 18:13 05/10/2021 IV Fluids NS via IV site #1 Discontinued: bag #1 infused. Total amount infused: 1000ml mL. IV patency established. IV site checked: no pain, redness, or swelling. IV flushed thoroughly. --18:18 05/10/21 Marylu Lobo R.N.DISPOSITION / DISCHARGE late entry - 18:16 05/10/21. Departure time: late entry - 18:05/10/2021. Edison Coma Scale: 15- eyes open- spontaneous (4); best verbal response- oriented (5); best motor response- obeys commands (6). Condition at departure: improved and stable. No learning barriers present. Discharge instructions provided and reviewed with the patient. Reviewed warnings. Reviewed medication(s) side effects, precautions, dosing and course information. Prescription(s) sent electronically to pharmacy (Protonix). Reviewed referral to a primary care physician for followup. Patient verbalized understanding. Written instructions provided in Tongan. The patient was discharged by the physician. She was discharged home and accompanied by parent. She left ambulatory and via private vehicle. Parent driving. --18:20 05/10/21 Marylu Lobo R.N. 18:15 05/10/21. BP: 125/75. MAP: 91. HR: 78. RR: 16. O2 saturation: 100% on room air. Temp: 98 F (temporal). Pain level now: 0/10. --18:20 05/10/21 Marylu Lobo R.N.Locked/Released at 05/10/2021 18:20 by Marylu Lobo R.N. Name Value Range Interpretation Code Description Data Karolina rce(s) Supporting Document(s) ID Date Data Source [id number] 05/10/2021 03:24:00 PM EDT [facility] 1 Clinical Report - Physicians/Mid Levels [facility] Emergency Department [address] [place] [address] Phone #: ext- [phone] 05/10/2021 15:23 Patient: THA FERRARA Sex: F : 2000 Age: 20y Arrived- By private vehicle. Historian- patient. Disposition decision: 18:06 05/10/2021.HISTORY OF PRESENT ILLNESS Chief Complaint: ABDOMINAL PAIN. It is described as located in the epigastric area. This started 3 weeks and is still present. At its maximum, severity described as moderate. When seen in the E.D., severity described as moderate. The patient has had nausea, loss of appetite and diarrhea. No vomiting. (3 weeks ago). ( PT reports having RUQ pain for 3 weeks that worsens after eating. She also has been having diarrhea 5 times a day and has not had an appetite. She saw her pcp on Wednesday and had an outpatient ultrasound on Wednesday which came back normal. She is supposed to call her pcp on wednesday, but the pain has gotten worse.)). Similar symptoms previously. Recent medical care: Not recently seen/assessed.REVIEW OF SYSTEMSNo constipation, black stools, hematemesis or difficulty with urination or urination. No pain with urination,urinary frequency or urinary frequency, bloody stools or fever. No headache, sore throat or throat orblurred vision. No chest pain or pain, difficulty breathing or cough. No joint pain or pain, skin rash or rashor chills. No back pain or pain, chills, fever or double vision. No ear pain, nasal congestion, cough,constipation or vomiting. No hematuria, headache, seizure or easy bruising. The patient has hadabdominal pain, diarrhea and nausea but not had weight loss.PAST HISTORYSee nurses notes. Problems: Asthma. Additional Surgeries: Ankle surgery. Medications: Arnuity Ellipta Inhalation, daily. Sertraline HCl Oral 25 mg, daily. Allergies: Augmentin.SOCIAL HISTORY 2 Clinical Report - Physicians/Mid Levels [facility] Emergency Department [address] [place] [address] Phone #: ext- [phone] 05/10/2021 15:23 Patient: THA FERRARA Sex: F : 2000 Age: 20y No drug use.ADDITIONAL NOTESThe nursing notes have been reviewed.PHYSICAL EXAMVital Signs: 05/10/2021 17:06 BP: 132/79. MAP: 96. HR: 82. RR: 16. O2 saturation: 100%.05/10/2021 16:06 BP: 106/67. MAP: 80. HR: 87. RR: 16. O2 saturation: 100%.05/10/2021 15:29 BP: 148/81. MAP: 103. HR: 90. RR: 16. O2 saturation: 100%. Temp: 98.2 F. Havebeen reviewed and appear to be correct. Mean arterial pressure- normal. Heart rate normal.Respiratory rate normal. Temperature normal. Oxygen saturation normal.Appearance: Alert. Oriented X3. No acute distress.Eyes: Pupils equal, round and reactive to light. Eyes normal inspection.ENT: Ears normal. Nose normal. Pharynx normal.Neck: Normal inspection. Neck supple.CVS: Normal heart rate and rhythm. Heart sounds normal. Pulses normal.Respiratory: No respiratory distress. Painless inspiration. Breath sounds normal. Chest nontender.Abdomen: Soft. Mild tenderness in the epigastric area. Bowel sounds normal.Back: Normal inspection. No CVA tenderness.Skin: Skin warm and dry. Normal skin color. No rash. Normal skin turgor.Extremities: Extremities exhibit normal ROM. No lower extremity edema.Neuro: Oriented X 3. No motor deficit. No sensory deficit.LABS, X-RAYS, AND EKGLaboratory Tests: US Abdomen Limited: (REGIS: 05/10/2021 15:58) ( MsgRcvd 05/10/2021 17:35) In Progress US ABD LIMITED Reason(s): RUQ Pain TRANSPORTATION: WC IV? O2? Oxygen?(No) Room: ED Exam US ABD LIMITED [facility] [address] [place] [address] PHONE: [phone] FAX: [phone] Name .................. : ALEM Lin Acct Number.................. : [id number] ROOM. ................. : TR-05 MR Number ................... : [id number] Stay type ............. : E/R Discharge Date......... ... : Admit Date ......... : 05/10/21 Admit Phys .................... : COONEYNORM Date of ....... : 2000 Family Phys ................... : [employer] Phone .................. : [phone] Age ................................ : 20 Film# .................. .:[id number] Sex ................................. : F Unsigned transcriptions are preliminary reports and do not represent a medical or legal document US EDIS LIMITED [id number] COMPLETE:05/10/21 17:05 [facility] [id number] Reason(s): RUQ Pain 3 Clinical Report - Physicians/Mid Levels [facility] Emergency Department [address] [place] [address] Phone #: ext- [phone] 05/10/2021 15:23 Patient: THA FERRARA Sex: F : 2000 Age: 20y ULTRASOUND RIGHT UPPER QUADRANT INDICATION: Right upper quadrant pain COMPARISON: None FINDINGS: LIVER: Normal echogenicity. No focal lesions identified. GALLBLADDER/BILIARY: No gallstones or gallbladder wall thickening. No pericholecystic fluid. The bile ducts are non- dilated. Common duct diameter 3 mm. PANCREAS: Poorly visualized. No indication of ductal dilatation at the pancreatic neck. RIGHT KIDNEY: no significant abnormality. IMPRESSION: No hepatobiliary abnormalities noted. Limited pancreas visualization. Electronically Reviewed and Signed By DCTNAME , SIGNDATE, SCB Transcribe Initials: LITO , Transcribe Date: 05/10/21 17:35, Dictation Date: <<REPDIST>> Page 1 of 1CBC w Diff: (REGIS: 05/10/2021 15:50) ( MsgRcvd 05/10/2021 16:15) Final results Test Result Flag Units (Reference) CBC W/AUTOMATED DIFF COMPLETE BLOOD COUNT WBC 11.2 H 10/uL (4.2 - 11.0) RBC 4.66 10/uL (4.20 - 5.40) HEMOGLOBIN 13.0 g/dL (12.0 - 16.0) HEMATOCRIT 38.6 % (37.0 - 47.0) MCV 82.8 fL (81.0 - 101) MCH 27.9 pg (27.0 - 34.0) MCHC 33.7 g/dL (31.0 - 36.0) RDW 13.1 % (11.5 - 14.5) PLATELETS 373 10/uL (150 - 450) MPV 8.8 fL (7.4 - 10.4) NEUT 55.9 % (37.0 - 80.0) LYMPH 36.3 % (25.0 - 40.0) MONO 6.5 % (3.0 - 8.0) EOS 0.7 % (0.0 - 7.0) BASO 0.3 % (0.0 - 2.5) %IG 0.3 H % (0.0 - 0.0) %NRBC 0.0 % (0.0 - 0.0) #NEUT 6.25 10/uL (2.00 - 6.90) #LYMPH 4.06 H 10/uL (0.60 - 3.40) #MONO 0.73 10/uL (0.00 - 0.90) #EOS 0.08 10/uL (0.00 - 0.70) 4 Clinical Report - Physicians/Mid Levels [facility] Emergency Department [address] [place] [address] Phone #: ext- [phone] 05/10/2021 15:23 Patient: THA FERRARA Sex: F : 2000 Age: 20y #BASO 0.03 10/uL (0.00 - 0.20) #IG 0.03 10/uL (0.00 - 0.10) #NRBC 0.00 10/uL (0.00 - 0.00) MANUAL DIFF NOT INDICATED RBC MORPH NOT INDICATEDCMP: (REGIS: 05/10/2021 15:50) ( MsgRcvd 05/10/2021 16:40) Final results Test Result Flag Units (Reference) COMPREHENSIVE METABOLIC PANEL COMPREHENSIVE METABOLIC PANEL SODIUM 140 mEq/L (134 - 153) POTASSIUM 4.3 mEq/L (3.6 - 5.0) CHLORIDE 106 mEq/L (98 - 107) CO2 23 MEQ/L (22 - 30) GLUCOSE 99 MG/DL (70 - 99) BUN 10 MG/DL (7 - 21) CREATININE 0.7 MG/DL (0.7 - 1.5) BUN/CREAT 14 (8 - 27) TOTAL PROTEIN 6.3 G/DL (6.3 - 8.2) ALBUMIN 3.7 L G/DL (3.9 - 5.0) GLOBULIN 2.6 GM/DL (2.4 - 3.2) A/G RATIO 1.4 (0.8 - 2.0) CALCIUM 9.2 MG/DL (8.4 - 10.2) TOTAL BILI <0.7 MG/DL (0.2 - 1.3) ALKALINE PHOS 99 U/L (38 - 126) SGOT/AST 13 U/L (5 - 40) SGPT/ALT 10 U/L (7 - 56) ANION GAP 11.0 mmol/L (8.0 - 16.0) AGE 20 yrs NON- AA GFR >60 mL/min AFR AMER GFR >60 mL/min Male GFR Interprentation 20-49 yrs >60 mL/min [id number] yrs >56 mL/min Normal 60- 69 yrs >49 mL/min Normal 70-79yrs>42 mL/min Normal 80 and above >35 mL/min Normal Female GFRInterpretation 20-39 yrs >60 mL/min Normal 40-49 yrs >58 mL/minNormal 50-59 yrs >51 mL/min Normal 60-69 yrs >45 mL/min Oooosg41-69 yrs >39 mL/min Normal 80 and above >32 mL/min NormalLactic Acid: (REGIS: 05/10/2021 15:50) ( MsgRcvd 05/10/2021 16:15) Final results Test Result Flag Units (Reference) LACTIC ACID 1.6 MMOL/L (0.2 - 2.2)Lipase: (REGIS: 05/10/2021 15:50) ( [facility] 05/10/2021 16:41) Final results Test Result Flag Units (Reference) LIPASE 16 U/L (13 - 60)Urinalysis: (REGIS: 05/10/2021 17:00) ( [facility] 05/10/2021 18:52) Final results Test Result Flag Units (Reference) URINALYSIS URINALYSIS SOURCE R COLOR yellow (NORMAL: Yello CLARITY hazy (NORMAL: Clear SPEC GRAVITY 1.025 (1.001 - 1.030 pH 6 (5 - 9) 5 Clinical Report - Physicians/Mid Levels [facility] Emergency Department [address] [place] [address] Phone #: ext- [phone] 05/10/2021 15:23 Patient: THA FERRARA Sex: F : 2000 Age: 20y GLUCOSE NORM (NORMAL: Negat BILIRUBIN NEG (NORMAL: Negat KETONE NEG (NORMAL: Negat PROTEIN NEG (NORMAL: Negat NITRITE NEG (NORMAL: Negat BLOOD 25 A (NORMAL: Negat LEUK EST 25 (NORMAL: Negat UROBILINOGEN NOR (less than 1.0 MICROSCOPIC See Below WBC 3 - 5 (NORMAL: NONE RBC 0 - 1 (NORMAL: NONE EPITHELIAL MANY A (NORMAL: NONE BACTERIA 3+ LARGE A (NORMAL: NONE CRYSTALS See Below CALCIUM OX 1+ A (NORMAL: NONE Beta-HCG, Qual Serum: (REGIS: 05/10/2021 15:50) ( [facility] 05/10/2021 16:33) Final results Test Result Flag Units (Reference) HCG SERUM QUAL NEGATIVE (NORMAL: NEGAT HCG SERUM QL REENTER NEGATIVE (NORMAL: NEGAT { KIT LOT # [id number] ){ KIT EXP DATE 09/05/22 ){ PROCEDURAL CONTROL VALID ).PROGRESS AND PROCEDURESCourse of Care: pt with ruq pain post prandial. labs grossly nl. nl lfts. not . us of gb showsstones with slightly thickened gbw. pt not toxic. labs grossly nl. will refer to general leonid rica outpatient.pt given ivf and iv zofran. she felt better. Patient/family counseled. Disposition: Discharged. Condition: good and stable.CLINICAL IMPRESSION Acute epigastric abdominal pain. Gastroesophageal reflux disease.INSTRUCTIONS Drink plenty of fluids. (Please follow up with your primary care physician. I sent a prescription to your pharmacy on file for reflux medicine.). Warnings: Further evaluation is necessary. 6 Clinical Report - Physicians/Mid Levels [facility] Emergency Department [address] [place] [address] Phone #: ext- [phone] 05/10/2021 15:23 Patient: THA FERRARA Sex: F : 2000 Age: 20y GENERAL WARNINGS: Return or contact your physician immediately if your condition worsens or changes unexpectedly, if not improving as expected, or if other problems arise. Your Current Medications: Your current home medications have been reviewed. CONTINUE TAKING THE FOLLOWING MEDICATIONS: Arnuity Ellipta Inhalation : daily. Sertraline HCl Oral : 25 mg daily. Prescription Medications: Protonix 40 mg tablet,delayed release Take 1 tablet once a day for 30 days -- Dispense 30 tablet. Refills: 1. Substitution permitted. Pharmacy - [facility] [id number] ; [place] [address]. Phone: . Follow-up: Follow up with your doctor Wednesday even if well. Call for an appointment. Reason for referral: evaluation. Summary of care provided to patient via paper. Understanding of the discharge instructions verbalized by patient.(Electronically signed by Sindi Ramirez MD 05/10/2021 20:12) Name Value Range Interpretation Code Description Data Karolina rce(s) Supporting Document(s) ID Date Data Source [id number] 05/10/2021 06:51:00 PM EDT [facility] Name Value Range Interpretation Code Description Data Karolina rce(s) Supporting Document(s) [facility]ALYS[facility] SOURCE R [facility] COLOR yellow NORMAL: Yellow [facility] CLARITY hazy NORMAL: Clear [facility] Specific gravity of Urine by Test strip 1.025 1.001 - 1.030 [facility] pH 6 5 - 9 [facility] Glucose [Mass/volume] in Urine by Test strip NORM NORMAL: Negat [facility] Bilirubin.total [Presence] in Urine by Test strip NEG NORMAL: Negative [facility] Ketones [Presence] in Urine by Test strip NEG NORMAL: Negative [facility] Protein [Mass/volume] in Urine by Test strip [facility] N[facility] [Presence] in Urine by Test strip NEG NORMAL: Negative [facility] BLOOD 25 NORMAL: Negative [facility] LEUK EST 25 NORMAL: Negative [facility] Urobilinogen [Mass/volume] in Urine by Test strip NOR less emma n 1.0 mg/dL [facility] MICROSCOPIC See Below [facility] ital WBC 3 - 5 NORMAL: NONE SEEN [facility] Erythrocytes [#/volume] in Urine by Test strip 0 - 1 NORMAL: NON E SEEN [facility] EPITHELIAL MANY NORMAL: NONE SEEN A [facility] Bacteria [Presence] in Urine sediment by Light microscopy 3+ LARGE NORMAL: NONE SEEN [facility] Crystals [type] in Urine sediment by Light microscopy See Below [facility] CALCIUM OX 1+ NORMAL: NONE SEEN A [facility] ID Date Data Source [id number] 05/10/2021 04:40:00 PM EDT [facility] Name Value Range Interpretation Code Description Data Karolina rce(s) Supporting Document(s) Lipase [Enzymatic activity/volume] in Serum or Plasma 16 U/L 13 - 60 [facility] ID Date Data Source [id number] 05/10/2021 04:40:00 PM EDT [facility] Name Value Range Interpretation Code Description Data Karolina rce(s) Supporting Document(s) COMPREHENSIVE METABOLIC PANEL [facility] COMPREHENSIVE METABOLIC PANEL Sodium [Moles/volume] in Serum or Plasma 140 mEq/L 134 - 153 [facility] Potassium [Moles/volume] in Serum or Plasma 4.3 mEq/L 3.6 - 5.0 [facility] Chloride [Moles/volume] in Serum or Plasma 106 mEq/L 98 - 107 [facility] Carbon dioxide, total [Moles/volume] in Serum or Plasma 23 MEQ/L 22 - 30 [facility] Glucose [Mass/volume] in Serum or Plasma 99 MG/DL 70 - 99 [facility] BUN 10 MG/DL 7 - 21 [facility] Creatinine [Mass/volume] in Serum or Plasma 0.7 MG/DL 0.7 - 1.5 [facility] BUN/CREAT 14 8 - 27 [facility] Protein [Mass/volume] in Serum or Plasma 6.3 G/DL 6.3 - 8.2 [facility] Albumin [Mass/volume] in Serum or Plasma 3.7 G/DL 3.9 - 5.0 L [facility] Globulin [Mass/volume] in Serum by calculation 2.6 GM/DL 2.4 - 3.2 [facility] A/G RATIO 1.4 0.8 - 2.0 [facility] Calcium [Mass/volume] in Serum or Plasma 9.2 MG/DL 8.4 - 10.2 [facility] Bilirubin.total [Mass/volume] in Serum or Plasma <0.7 MG/DL 0.2 - 1.3 [facility] Alkaline phosphatase [Enzymatic activity/volume] in Serum or Plasma 99 U/L 38 - 126 [facility] Aspartate aminotransferase [Enzymatic activity/volume] in Serum or Plasma 13 U/L 5 - 40 [facility] Alanine aminotransferase [Enzymatic activity/volume] in Seru m or Plasma 10 U/L 7 - 56 [facility] Anion gap 3 in Serum or Plasma 11.0 mmol/L 8.0 - 16.0 [facility] AGE [address] [facility] NON-AA GFR >60 mL/min [facility] AFR AMER GFR >60 mL/min [facility] Male GFR In terprentation 20-49 yrs >60 mL/min Normal 50-59 yrs >56 mL/min Normal 60-69 yrs >49 mL/min Normal 70-79yrs >42 mL/min Normal 80 and above >35 mL/min Normal Female GFR Interpretation 20-39 yrs >60 mL/min Normal 40-49 yrs >58 mL/min Normal 50-59 yrs >51 mL/min Normal 60-69 yrs >45 mL/min Normal 70-79 yrs >39 mL/min Normal 80 and above >32 mL/min Normal ID Date Data Source [id number] 05/10/2021 04:33:00 PM EDT [facility] Name Value Range Interpretation Code Description Data Karolina rce(s) Supporting Document(s) HCG SERUM QUAL NEGATIVE NORMAL: NEGATIVE [facility] HCG SERUM QL REENTER NEGATIVE NORMAL: NEGATIVE [facility] { KIT LOT # [id number] ){ KIT EXP DATE 09/05/22 ){ PROCEDURAL CONTROL VALID ) ID Date Data Source [id number] 05/10/2021 04:15:00 PM T [facility] Value Range Interpretation Code Description Data Karolina rce(s) Supporting Document(s) Lactate [Moles/volume] in Serum or Plasma 1.6 MMOL/L 0.2 - 2.2 [facility] ID Date Data Source [id number] 05/10/2021 04:14:00 PM EDT [facility] Name Value Range Interpretation Code Description Data Karolina rce(s) Supporting Document(s) CBC W/AUTOMATED DIFF [facility] COMPLETE BLOOD COUNT Leukocytes [#/volume] in Blood by Automated count 11.2 10^3/uL 4.2 - 11.0 H [facility] Erythrocytes [#/volume] in Blood by Automated count 4.66 10^6/uL 4. 20 - 5.40 [facility] Hemoglobin [Mass/volume] in Blood 13.0 g/dL 12.0 - 16.0 [facility] Hematocrit [Volume Fraction] of Blood by Automated count 38.6 % 3 7.0 - 47.0 [facility] Erythrocyte mean corpuscular volume [Entitic volume] by Auto mated count 82.8 fL 81.0 - 101 [facility] Erythrocyte mean corpuscular hemoglobin [Entitic mass] by Automated count 27.9 pg 27.0 - 34.0 [facility] [facility] Eryth[facility] mean corpuscular hemoglobin concentration [Mass/volume] by Automated count 33.7 g/dL 31.0 - 36.0 [facility] Erythrocyte distribution width [Ratio] by Automated count 13.1 % 11.5 - 14.5 [facility] Platelets [#/volume] in Blood by Automated count 373 10^3/uL 150 - 45 0 [facility] Platelet mean volume [Entitic volume] in Blood by Automated count 8.8 fL 7.4 - 10.4 [facility] Neutrophils/100 leukocytes in Blood by Automated count 55.9 % 37. 0 - 80.0 [facility] Lymphocytes/100 leukocytes in Blood by Manual count 36.3 % 25.0 - 40.0 [facility] Monocytes/100 leukocytes in Blood by Automated count 6.5 % 3.0 - 8.0 [facility] Eosinophils/100 leukocytes in Blood by Automated count 0.7 % 0.0 - 7.0 [facility] Basophils/100 leukocytes in Blood by Automated count 0.3 % 0.0 - 2.5 [facility] %IG 0.3 % 0.0 - 0.0 [facility] 0.0 % 0.0 - 0.0 [facility] al Neutrophils [#/volume] in Blood by Automated count 6.25 10^3/uL 2.00 - 6.90 [facility] Lymphocytes [#/volume] in Blood by Automated count 4.06 10^3/uL 0.60 - 3.40 H [facility] Monocytes [#/volume] in Blood by Automated count 0.73 10^3/uL 0.00 - 0.90 [facility] Eosinophils [#/volume] in Blood by Automated count 0.08 10^3/uL 0.00 - 0.70 [facility] Basophils [#/volume] in Blood by Automated count 0.03 10^3/uL 0.00 - 0.20 [facility] #IG 0.03 10^3/uL 0.00 - 0.10 [facility] #NRBC 0.00 10^3/uL 0.00 - 0.00 [facility] MANUAL DIFF NOT INDICATED [facility] RBC MORPH NOT INDICATED [facility] ID Date Data Source [id number] 05/05/2021 03:40:00 PM EDT [facility] Name Value Range Interpretation Code Description Data Karolina rce(s) Supporting Document(s) SARS-CoV-2 (COVID-19) RNA [Presence] in Respiratory specimen by ANNA with probe detection Not Detected [facility] This lab was ordered by [facility] and reported by [facility]. ID Date Data Source [id number] 05/05/2021 02:30:00 PM EDT [facility] Name Value Range Interpretation Code Description Data Karolina rce(s) Supporting Document(s) SARS COVID ANTIGEN NEGATIVE [facility] This lab was ordered by [facility] lin nd reported by [facility]. ID Date Data Source Coronavirus 2019 Nasopharygeal (Send Out) COVID 05/05/2021 1 2:00:00 AM EDT eCW1 ([facility]) Name Value Range Interpretation Code Description Data Karolina rce(s) Supporting Document(s) Coronavirus 2019 Nasophar ygeal (Send Out) COVID eCW1 ([facility]) ID Date Data Source LIPASE 05/05/2021 12:00:00 AM EDT eCW1 ([facility] hospital) Name Value Range Interpretation Code Description Data Karolina rce(s) Supporting Document(s) [phone] LIPASE eCW1 ([facility]) ID Date Data Source Comprehensive Metabolic Profile (CMP) 05/05/2021 12:00:00 AM EDT eCW1 ([facility]) Name Value Range Interpretation Code Description Data Karolina rce(s) Supporting Document(s) 0.72 0.55-1.30 CREATININE FOR GFR eCW1 ([facility]) 75 70-100 GLUCOSE, FASTING eCW1 (Critical access hospital) 12 7-18 BLOOD UREA NITROGEN eCW1 ([facility]) 4.0 3.5-5.1 POTASSIUM SERUM eCW1 ([facility]) 108 98-107 CHLORIDE LEVEL eCW1 ([facility]) 139 136-145 SODIUM LEVEL eCW1 ([facility]) 17 12-78 ALT/SGPT eCW1 ([facility]) 26 21-32 CARBON DIOXIDE LEVEL eCW1 ([facility]) 9 7-37 AST/SGOT eCW1 ([facility]) 9.1 8.5-10.1 CALCIUM LEVEL eCW1 ([facility]) 119 45-117 ALKALINE PHOSPHATASE eCW1 ([facility]) 6.9 6.4-8.2 TOTAL PROTEIN eCW1 ([facility]) 2.9 3.2-5.2 ALBUMIN eCW1 ([facility]) 0.5 0.2-1.0 BILIRUBIN,TOTAL eCW1 ([facility]) 0.7 1.2-2.2 ALBUMIN/GLOBULIN RATIO eCW1 ([facility]) ID Date Data Source CBC - Complete Blood Count 05/05/2021 12:00:00 AM EDT eCW1 ( [facility]) Name Value Range Interpretation Code Description Data Karolina rce(s) Supporting Document(s) 12.3 4.0-10.0 WHITE BLOOD COUNT eCW1 ([facility]) 4.90 4.00-5.40 RED BLOOD COUNT eCW1 ([facility]) 13.6 12.0-15.5 HEMOGLOBIN eCW1 ([facility]) 41.8 36.0-47.0 HEMATOCRIT eCW1 ([facility]) 13.1 11.5-14.5 RED CELL DISTRIBUTION WID TH eCW1 ([facility]) 27.8 27.0-33.0 MEAN CORPUSCULAR HEMOGLOB IN eCW1 ([facility]) 85.3 80.0-96.0 MEAN CORPUSCULAR VOLUME e CW1 ([facility]) 32.5 32.0-36.5 MEAN CORPUSCULAR HGB CONC eCW1 ([facility]) 374 150-450 PLATELET COUNT, AUTOMATED eCW1 ([facility]) ID Date Data Source [id number] 02/26/2021 05:00:00 PM EDT MED[facility] ([facility]) Name Value Range Interpretation Code Description Data Karolina rce(s) Supporting Document(s) Bacteria identified in Urine by Culture Laboratory test result [facility] ([facility]) ID Date Data Source [id number] 02/19/2021 07:54:00 AM EDT MED[facility] ([facility], ) Name Value Range Interpretation Code Description Data Karolina rce(s) Supporting Document(s) PDFReport Laboratory test result MEDENT ([facility], ) FVC-Pred 3.60 L MEDENT ([facility]) FVC-Pre 3.54 L [facility] ([facility]) Fev1-Pred 3.19 L [facility] ([facility]) FVC-%Pred-Pre 98 L MEDENT ([facility], ) FVC-LLN 2.93 L MEDENT ([facility], ) Fev1-LLN 2.63 L MED[facility] ([facility]) Fev1-Pre 3.11 L [facility] ([facility]) Fev1-%Pred-Pre 97 L MEDENT ([facility], ) Fev6-%Pred-Pre 97 L MEDENT ([facility], ) Fev6-Pre 3.53 L MEDENT ([facility], ) Fev6-Pred 3.61 L MED[facility] ([facility], ) Fev6-LLN 2.96 L [facility] ([facility]) Ylt8pvc-Hynw 87 % [facility] ([facility]) Jwg2sbx-Rqn 88 % [facility] ([facility]) Ytx5rhx-SND 77 % [facility] ([facility]) Dsr3sei-%Pred-Pre 101 % MED[facility] ([facility]) Pgn4gqa-Joe 100 % [facility] ([facility]) Uup2ctu-Aezl 101 % [facility] ([facility]) Nkh3xcn-%Pred-Pre 99 % [facility] ([facility]) FEFMax-%Pred-Pre 90 L/E/sec MED[facility] ([facility]) FEFMax-Pre 5.91 L/E/sec MED[facility] ([facility]) FEFMax-Pred 6.56 L/E/sec MEDENT ([facility]) FEFMax-LLN 4.93 L/E/sec [facility] ([facility]) Mzg9397-Omap 3.69 L/E/sec MED[facility] ([facility]) Nej2127-Yps 3.99 L/E/sec [facility] ([facility]) Eho7830-HUG 2.51 L/E/sec [facility] ([facility]) Kxl9599-%Pred-Pre 108 L/E/sec MED[facility] ([facility]) Voz0dau7-Rzi 88 % [facility] ([facility]) Tnj4nci0-Xhtt 87 % [facility] ([facility]) ExpTime-Pre 7.41 sec MED[facility] ([facility]) Yyb0zai0-%Pred-Pre 101 % [facility] ([facility]) Hci3tkx0-OIH 78 % [facility] ([facility]) ID Date Data Source [id number] 12/23/2020 08:31:00 AM EDT [facility] Name Value Range Interpretation Code Description Data Karolina rce(s) Supporting Document(s) SARS COVID ANTIGEN NEGATIVE [facility] This lab was ordered by [facility] lin nd reported by [facility]. ID Date Data Source KESHIA COVID AG (Point of Care) 12/23/2020 12:00:00 AM EDT eC W1 ([facility]) Name Value Range Interpretation Code Description Data Karolina rce(s) Supporting Document(s) NEGATIVE NEGATIVE KESHIA COVID ANTIGEN eCW1 ([facility]) ID Date Data Source [id number] 12/18/2020 09:55:00 AM EDT MEDENT ([facility], ) Name Value Range Interpretation Code Description Data Karolina rce(s) Supporting Document(s) PDFReport Laboratory test result MED[facility] ([facility]) FVC-Pred 3.60 L [facility] ([facility]) FVC-%Pred-Pre 98 L [facility] ([facility]) FVC-Pre 3.56 L [facility] ([facility]) Fev1-Pred 3.19 L [facility] ([facility]) FVC-LLN 2.93 L [facility] ([facility]) Fev1-Pre 3.12 L [facility] ([facility]) Fev1-%Pred-Pre 97 L [facility] ([facility]) Fev6-Pred 3.61 L [facility] ([facility]) Fev1-LLN 2.63 L [facility] ([facility]) Fev6-Pre 3.56 L [facility] ([facility]) Fev6-%Pred-Pre 98 L [facility] ([facility]) Fev6-LLN 2.96 L [facility] ([facility]) Xkc8exg-Fssu 87 % [facility] ([facility]) Wfl1fnm-Kyd 88 % [facility] ([facility]) Xxk3fyh-%Pred-Pre 100 % [facility] ([facility]) Mrr6yjh-HWH 77 % [facility] ([facility]) Fcx1ivw-Kme 100 % [facility] ([facility]) Myb2mup-Qqbx 101 % [facility] ([facility]) Aej6kgk-%Pred-Pre 99 % [facility] ([facility]) FEFMax-Pred 6.56 L/E/sec MED[facility] ([facility]) FEFMax-Pre 5.14 L/E/sec [facility] ([facility]) FEFMax-LLN 4.93 L/E/sec [facility] ([facility]) FEFMax-%Pred-Pre 78 L/E/sec [facility] ([facility]) Vgz4012-Kxc 3.92 L/E/sec [facility] ([facility]) Iel9260-Emgr 3.69 L/E/sec [facility] ([facility]) Bbv6975-%Pred-Pre 106 L/E/sec [facility] ([facility]) Kgz7909-JLZ 2.51 L/E/sec [facility] ([facility]) Zwd9svq1-Msmv 87 % [facility] ([facility]) ExpTime-Pre 5.91 sec [facility] ([facility]) Njk3reg1-Mne 88 % [facility] ([facility]) Del2akf4-%Pred-Pre 100 % [facility] ([facility]) Veq9jgz2-AQZ 78 % [facility] ([facility]) ID Date Data Source HCG SERUM QUALITATIVE 12/18/2020 12:00:00 AM EDT eCW1 ([facility]) Name Value Range Interpretation Code Description Data Karolina rce(s) Supporting Document(s) NEGATIVE NEGATIVE HCG, SERUM QUALITATIVE eC W1 ([facility]) ID Date Data Source [id number] 12/09/2020 12:00:00 AM EDT [facility] Name Value Range Interpretation Code Description Data Karolina rce(s) Supporting Document(s) SARS-CoV2 Rapid Antigen Negative [facility] This lab was reported by [facility]. ID Date Data Source Basic Metabolic Profile (BMP) 10/10/2020 12:00:00 AM EST eCW 1 ([facility]) Name Value Range Interpretation Code Description Data Karolina rce(s) Supporting Document(s) 0.66 0.55-1.30 eCW1 ([facility]) 93 70-100 eCW1 ([facility]) 16 7-18 eCW1 ([facility]) 143 136-145 eCW1 ([facility]) 4.6 3.5-5.1 eCW1 ([facility]) 108 98-107 eCW1 ([facility]) 28 21-32 eCW1 ([facility]) 9.4 8.5-10.1 eCW1 ([facility]) ID Date Data Source FREE T4 & TSH PANEL 10/10/2020 12:00:00 AM EST eCW1 (Critical access hospital) Name Value Range Interpretation Code Description Data Karolina rce(s) Supporting Document(s) 1.520 0.463-3.98 eCW1 ([facility]) 1.12 0.78-1.33 eCW1 ([facility]) ID Date Data Source [id number] 10/04/2020 02:08:00 PM EST [facility] Name Value Range Interpretation Code Description Data Karolina rce(s) Supporting Document(s) SARS-CoV-2 (COVID 19) NEGATIVE - SARS-CoV-2 (COVID19) [facility] This lab was ordered by [facility] a nd reported by [facility]. ID Date Data Source [id number] 09/23/2020 12:00:00 AM EST [facility] Name Value Range Interpretation Code Description Data Karolina rce(s) Supporting Document(s) Carestart Rapid COVID Antigen Test Positive [facility] This lab was reported by [facility]. ID Date Data Source [id number] 08/22/2020 12:00:00 AM EST eCW1 ([facility] hospital) Name Value Range Interpretation Code Description Data Karolina rce(s) Supporting Document(s) NOT DETECTED NEGATIVE Trichomonas vaginalis ( AMP) eCW1 ([facility]) ID Date Data Source [id number] 05/25/2020 10:00:00 AM EDT MEDENT ([facility]) Name Value Range Interpretation Code Description Data Karolina rce(s) Supporting Document(s) Coronavirus 2019 Nasopharygeal Laboratory test result [facility] ([facility]) This nucleic acid amplification test was developed and its performance characteristics determined by [facility]. Nucleic acid amplification tests include PCR and TMA. This test has not been FDA cleared or approved. This test has been authorized by FDA under an Emergency Use Authorization (EUA). This test is only authorized for the duration of time the declaration that circumstances exist justifying the authorization of the emergency use of in vitro diagnostic tests for detection of SARS-CoV-2 virus and/or diagnosis of COVID-19 infection under section 564(b)(1) of the Act, 21 U.S.C. 360bbb-3 (b) (1), unless the authorization is terminated or revoked sooner. When diagnostic testing is negative, the possibility of a false negative result should be considered in the context of a patient's recent exposures and the presence of clinical signs and symptoms consistent with COVID-19. An individual without symptoms of COVID-19 and who is not shedding SARS-CoV-2 virus would expect to have a negative (not detected) result in this assay. Performed at: [facility] [id number] [employer]: Liliana Wilburn MD, Phone: [phone] Not Detected ID Date Data Source [id number] 05/25/2020 10:00:00 AM EDT [facility] Name Value Range Interpretation Code Description Data Karolina rce(s) Supporting Document(s) SARS coronavirus 2 RNA [facility] This lab was ordered by [facility] and reported by [facility]. Procedure Social History Code Duration Value Status Description Data Source(s ) Smoking 06/11/2021 12:00:00 AM EDT Never Smoker completed Never S moker eCW1 ([facility]) Smoking 06/11/2021 12:00:00 AM EDT Never Smoker completed Never S moker eCW1 ([facility]) Smoking 05/13/2021 12:00:00 AM EDT Never Smoker completed Never S moker eCW1 ([facility]) Smoking 05/13/2021 12:00:00 AM EDT Never Smoker completed Never S moker eCW1 ([facility]) Smoking 05/13/2021 12:00:00 AM EDT Never Smoker completed Never S moker eCW1 ([facility]) Smoking 05/05/2021 12:00:00 AM EDT Never Smoker completed Never S moker eCW1 ([facility]) Smoking 03/12/2021 12:00:00 AM EDT Never Smoker completed Never S moker eCW1 ([facility]) Smoking 03/12/2021 12:00:00 AM EDT Never Smoker completed Never S moker eCW1 ([facility]) Smoking 02/19/2021 12:00:00 AM EDT Patient has never smoked co mpleted Patient has never smoked MEDENT ([facility], ) Smoking 12/23/2020 12:00:00 AM EDT Never Smoker completed Never S moker eCW1 ([facility]) Smoking 12/23/2020 12:00:00 AM EDT Never Smoker completed Never S moker eCW1 ([facility]) Smoking 12/23/2020 12:00:00 AM EDT Never Smoker completed Never S moker eCW1 ([facility]) Smoking 12/18/2020 12:00:00 AM EDT Never Smoker completed Never S moker eCW1 ([facility]) Smoking 12/18/2020 12:00:00 AM EDT Never Smoker completed Never S moker eCW1 ([facility]) Smoking 12/18/2020 12:00:00 AM EDT Never Smoker completed Never S moker eCW1 ([facility]) Smoking 11/07/2020 12:00:00 AM EST Never Smoker completed Never S moker eCW1 ([facility]) Smoking 11/07/2020 12:00:00 AM EST Never Smoker completed Never S moker eCW1 ([facility]) Smoking 10/28/2020 12:00:00 AM EST Never Smoker completed Never S moker eCW1 ([facility]) Smoking 10/17/2020 12:00:00 AM EST Never Smoker completed Never S moker eCW1 ([facility]) Smoking 10/17/2020 12:00:00 AM EST Never Smoker completed Never S moker eCW1 ([facility]) Smoking 10/17/2020 12:00:00 AM EST Never Smoker completed Never S moker eCW1 ([facility]) Smoking 10/10/2020 12:00:00 AM EST Never Smoker completed Never S moker eCW1 ([facility]) Smoking 09/19/2020 12:00:00 AM EST Never Smoker completed Never S moker eCW1 ([facility]) Smoking 08/22/2020 12:00:00 AM EST Never Smoker completed Never S moker eCW1 ([facility]) Vital Signs ID Date Data Source UNK Name Value Range Interpretation Code Description Data Source(s) Systolic blood pressure 171 mm[Hg] 171 mm[Hg] [facility] Diastolic blood pressure 94 mm[Hg] 94 mm[Hg] [facility] ([facility]) Body temperature 98.0 [degF] 98.0 [degF] [facility] ([facility]) Body height 62.5 [in_i] 62.5 [in_i] [facility] ([facility]) 5'2.50" Body weight 232.00 [lb_av] 232.00 [facility]_av[facility] Body mass index (BMI) [Ratio] 41.8 kg/m2 41.8 k g/m2 [facility] ([facility]) [place] body weight 110 [lb_av] 110 [lb_av] [facility] T ([facility]) Body weight 105.235 kg 105.235 kg [facility] ([facility]) Body height [Percentile] 24 % 24 % [facility] ([facility]) Body surface area Derived from formula 2.05 m2 2.05 m2 [facility] ([facility]) Body weight 241.8 [lb_av] 241.8 [lb_av] eCW1 ([facility]) Body weight 109.68 kg 109.68 kg eCW1 ([facility]) Body height 60 [in_i] 60 [in_i] eCW1 ([facility]) Body mass index (BMI) [Ratio] 47.22 kg/m2 47.22 kg/m2 eCW1 ([facility]) Heart rate 87 /min 87 /min eCW1 ([facility]) Respiratory rate 18 /min 18 /min eCW1 ([facility]) Body temperature 97.0 [degF] 97.0 [degF] eCW1 ( [facility]) Systolic blood pressure 128 mm[Hg] 128 mm[Hg] e CW1 ([facility]) Diastolic blood pressure 80 mm[Hg] 80 mm[Hg] eCW1 ([facility]) Body weight 237 [lb_av] 237 [lb_av] eCW1 ([facility]) Body weight 107.5 kg 107.5 kg eCW1 ([facility]) Body height 60 [in_i] 60 [in_i] eCW1 ([facility]) Body mass index (BMI) [Ratio] 46.28 kg/m2 46.28 kg/m2 eCW1 ([facility]) Heart rate 112 /min 112 /min eCW1 ([facility]) Respiratory rate 18 /min 18 /min eCW1 ([facility]) Body temperature 98.1 [degF] 98.1 [degF] eCW1 ( [facility]) Systolic blood pressure 130 mm[Hg] 130 mm[Hg] e CW1 ([facility]) Diastolic blood pressure 80 mm[Hg] 80 mm[Hg] eCW1 ([facility]) Body weight 235.8 [lb_av] 235.8 [lb_av] eCW1 ([facility]) Body weight 106.96 kg 106.96 kg eCW1 ([facility]) Body height 60 [in_i] 60 [in_i] eCW1 ([facility]) Body mass index (BMI) [Ratio] 46.05 kg/m2 46.05 kg/m2 eCW1 ([facility]) Systolic blood pressure 132 mm[Hg] 132 mm[Hg] e CW1 ([facility]) Diastolic blood pressure 80 mm[Hg] 80 mm[Hg] eCW1 ([facility]) Systolic blood pressure 121 mm[Hg] 121 mm[Hg] M EDENT ([facility]) Oxygen saturation in Arterial blood by Pulse oximetry 98 % 98 % MED[facility] ([facility]) Body temperature 97.8 [degF] 97.8 [degF] [facility] ([facility]) Body weight 230.00 [lb_av] 230.00 [lb_av] MEDEN T ([facility]) Body height 62 [in_i] 62 [in_i] MED[facility] ([facility]) 5'2" Diastolic blood pressure 88 mm[Hg] 88 mm[Hg] [facility] ([facility]) Heart rate 101 /min 101 /min MED[facility] ([facility]) Respiratory rate 14 /min 14 /min [facility] ( [facility]) Body mass index (BMI) [Ratio] 42.1 kg/m2 42.1 k g/m2 MED[facility] ([facility]) Body weight 234.00 [lb_av] 234.00 [lb_av] MEDEN T ([facility], ) Body mass index (BMI) [Ratio] 42.1 kg/m2 42.1 k g/m2 [facility] ([facility], ) [place] body weight 110 [lb_av] 110 [lb_av] MED[facility] T ([facility], ) Body mass index (BMI) [Ratio] 42.1 kg/m2 42.1 k g/m2 [facility] ([facility], ) [place] body weight 110 [lb_av] 110 [lb_av] MEDEN T ([facility], ) Body weight 106.142 kg 106.142 kg [facility] ([facility]) Body height [Percentile] 24 % 24 % [facility] ([facility]) Body surface area Derived from formula 2.06 m2 2.06 m2 [facility] ([facility]) Oxygen saturation in Arterial blood by Pulse oximetry 97 % 97 % [facility] ([facility]) Body height 62.5 [in_i] 62.5 [in_i] [facility] ([facility]) 5'2.50" Body weight 106.142 kg 106.142 kg [facility] ([facility]) Body height [Percentile] 24 % 24 % [facility] ([facility]) Body surface area Derived from formula 2.06 m2 2.06 m2 [facility] ([facility]) Systolic blood pressure 122 mm[Hg] 122 mm[Hg] [facility] ([facility]) Diastolic blood pressure 68 mm[Hg] 68 mm[Hg] [facility] ([facility]) Heart rate 76 /min 76 /min [facility] ([facility]) Oxygen saturation in Arterial blood by Pulse oximetry 97 % 97 % [facility] ([facility]) Body height 62.5 [in_i] 62.5 [in_i] [facility] ([facility]) 5'2.50" Body weight 234.00 [lb_av] 234.00 [lb_av] [facility] Body mass index (BMI) [Ratio] 42.5 kg/m2 42.5 k g/m2 [facility] ([facility]) [place] body weight 110 [lb_av] 110 [lb_av] [facility] T ([facility]) Body weight 107.050 kg 107.050 kg [facility] ([facility]) Body weight 236.00 [lb_av] 236.00 [lb_av] [facility] T ([facility]) Systolic blood pressure 110 mm[Hg] 110 mm[Hg] [facility] Diastolic blood pressure 82 mm[Hg] 82 mm[Hg] [facility] ([facility]) Heart rate 86 /min 86 /min [facility] ([facility]) Oxygen saturation in Arterial blood by Pulse oximetry 97 % 97 % [facility] ([facility]) Body temperature 97.7 [degF] 97.7 [degF] [facility] ([facility]) Body height 62.5 [in_i] 62.5 [in_i] [facility] ([facility]) 5'2.50" Body height [Percentile] 24 % 24 % [facility] ([facility]) Body surface area Derived from formula 2.06 m2 2.06 m2 [facility] ([facility]) Body weight 240 [lb_av] 240 [lb_av] eCW1 ([facility]) Body height 60 [in_i] 60 [in_i] eCW1 (Critical [facility] Body mass index (BMI) [Ratio] 46.87 kg/m2 46.87 kg/m2 eCW1 ([facility]) Heart rate 85 /min 85 /min eCW1 ([facility]) Respiratory rate 18 /min 18 /min eCW1 ([facility]) Body temperature 98.1 [degF] 98.1 [degF] eCW1 ( [facility]) Systolic blood pressure 118 mm[Hg] 118 mm[Hg] e CW1 ([facility]) Diastolic blood pressure 82 mm[Hg] 82 mm[Hg] eCW1 ([facility]) Body weight 233 [lb_av] 233 [lb_av] eCW1 ([facility]) Body weight 105.69 kg 105.69 kg eCW1 ([facility]) Body height 60 [in_i] 60 [in_i] eCW1 ([facility]) Body mass index (BMI) [Ratio] 45.5 kg/m2 45.5 k g/m2 W1 ([facility]) Systolic blood pressure 130 mm[Hg] 130 mm[Hg] e CW1 ([facility]) Diastolic blood pressure 82 mm[Hg] 82 mm[Hg] eCW1 ([facility]) Diastolic blood pressure 90 mm[Hg] 90 mm[Hg] [facility] ([facility]) Heart rate 103 /min 103 /min [facility] ([facility]) Body weight 107.957 kg 107.957 kg [facility] ([facility]) Body height [Percentile] 24 % 24 % [facility] ([facility]) Body surface area Derived from formula 2.07 m2 2.07 m2 [facility] ([facility]) Systolic blood pressure 140 mm[Hg] 140 mm[facility]Hg] [facility] Body height 62.5 [in_i] 62.5 [in_i] [facility] ([facility]) 5'2.50" Body weight 238.00 [lb_av] 238.00 [lb_av] MEDEN T ([facility]) Body mass index (BMI) [Ratio] 42.8 kg/m2 42.8 k g/m2 [facility] ([facility]) Oxygen saturation in Arterial blood by Pulse oximetry 97 % 97 % [facility] ([facility]) [place] body weight 110 [lb_av] 110 [facility]_av] [facility] Systolic blood pressure 124 mm[Hg] 124 mm[Hg] [facility]) Diastolic blood pressure 83 mm[Hg] 83 mm[Hg] [facility] ([facility], [facility]) Heart rate 78 /min 78 /min [facility] ([facility], [facility]) Respiratory rate 16 /min 16 /min [facility] ( [facility], [facility]) Oxygen saturation in Arterial blood by Pulse oximetry 98 % 98 % [facility] ([facility], [facility]) Body temperature 98.1 [degF] 98.1 [degF] [facility]) Body weight 235.00 [lb_av] 235.00 [lb_av] MED[facility] T ([facility], [facility]) Body height 62 [in_i] 62 [in_i] [facility] ([facility], [facility]) 5'2" Body mass index (BMI) [Ratio] 43.0 kg/m2 43.0 k g/m2 [facility] ([facility], [facility]) Systolic blood pressure 128 mm[Hg] 128 mm[Hg] M EDENT ([facility], [facility]) Diastolic blood pressure 76 mm[Hg] 76 mm[Hg] [facility] ([facility], [facility]) Heart rate 78 /min 78 /min [facility] ([facility]) Respiratory rate 14 /min 14 /min [facility] ( [facility], [facility]) Oxygen saturation in Arterial blood by Pulse oximetry 98 % 98 % [facility] ([facility], [facility]) Body temperature 98.2 [degF] 98.2 [degF] [facility] ([facility], [facility]) Body weight 230.00 [lb_av] 230.00 [lb_av] MED[facility] T ([facility], [facility]) Body height 62 [in_i] 62 [in_i] [facility] ([facility], [facility]) 5'2" Body mass index (BMI) [Ratio] 42.1 kg/m2 42.1 k g/m2 [facility] ([facility], [facility]) Body weight 233.4 [lb_av] 233.4 [lb_av] eCW1 ([facility]) Body height 60 [in_i] 60 [in_i] eCW1 ([facility]) Body mass index (BMI) [Ratio] 45.58 kg/m2 45.58 kg/m2 eCW1 ([facility]) Heart rate 84 /min 84 /min eCW1 ([facility]) Respiratory rate 18 /min 18 /min eCW1 ([facility]) Body temperature 98.3 [degF] 98.3 [degF] eCW1 ( [facility]) Systolic blood pressure 128 mm[Hg] 128 mm[Hg] e CW1 ([facility]) Diastolic blood pressure 84 mm[Hg] 84 mm[Hg] eCW1 ([facility]) Body weight 235 [lb_av] 235 [lb_av] eCW1 ([facility]) Body height 60 [in_i] 60 [in_i] eCW1 ([facility]) Body mass index (BMI) [Ratio] 45.89 kg/m2 45.89 kg/m2 eCW1 ([facility]) Heart rate 91 /min 91 /min eCW1 ([facility]) Respiratory rate 18 /min 18 /min eCW1 ([facility]) Body temperature 97.6 [degF] 97.6 [degF] eCW1 ( [facility]) Systolic blood pressure 112 mm[Hg] 112 mm[Hg] e CW1 ([facility]) Diastolic blood pressure 68 mm[Hg] 68 mm[Hg] eCW1 ([facility]) Body weight 233 [lb_av] 233 [lb_av] eCW1 ([facility]) Body height 60 [in_i] 60 [in_i] eCW1 ([facility]) Body mass index (BMI) [Ratio] 45.50 kg/m2 45.50 kg/m2 eCW1 ([facility]) Heart rate 84 /min 84 /min eCW1 ([facility]) Respiratory rate 18 /min 18 /min eCW1 ([facility]) Body temperature 97.3 [degF] 97.3 [degF] eCW1 ( [facility]) Systolic blood pressure 116 mm[Hg] 116 mm[Hg] e CW1 ([facility]) Diastolic blood pressure 80 mm[Hg] 80 mm[Hg] eCW1 ([facility]) Body weight 232.6 [lb_av] 232.6 [lb_av] eCW1 ([facility]) Body weight 105.51 kg 105.51 kg eCW1 ([facility]) Body height 60 [in_i] 60 [in_i] eCW1 ([facility]) Body mass index (BMI) [Ratio] 45.42 kg/m2 45.42 kg/m2 eCW1 ([facility]) Systolic blood pressure 112 mm[Hg] 112 mm[Hg] e CW1 ([facility]) Diastolic blood pressure 72 mm[Hg] 72 mm[Hg] eCW1 ([facility]) Body weight 230 [lb_av] 230 [lb_av] eCW1 ([facility]) Body weight 104.33 kg 104.33 kg eCW1 ([facility]) Body height 60 [in_i] 60 [in_i] eCW1 ([facility]) Body mass index (BMI) [Ratio] 44.91 kg/m2 44.91 kg/m2 eCW1 ([facility]) Systolic blood pressure 118 mm[Hg] 118 mm[Hg] e CW1 ([facility]) Diastolic blood pressure 77 mm[Hg] 77 mm[Hg] eCW1 ([facility]) Body temperature 96.6 [degF] 96.6 [degF] [facility] ([facility]) Body temperature 97.1 [degF] 97.1 [degF] [facility] ([facility]) Patient Treatment Plan of Care Planned Activity Planned Date Details Description Data Source (s) Flonase Allergy Relief 50 MCG/ACT 12/23/2020 12:00:00 AM EDT eCW1 ([facility]) Zofran ODT 4 MG 12/23/2020 12:00:00 AM EDT eCW1 ([facility]) Flonase Allergy Relief 50 MCG/ACT 12/23/2020 12:00:00 AM EDT eCW1 ([facility]) Zofran ODT 4 MG 12/23/2020 12:00:00 AM EDT eCW1 ([facility]) Flonase Allergy Relief 50 MCG/ACT 12/23/2020 12:00:00 AM EDT eCW1 ([facility]) Zofran ODT 4 MG 12/23/2020 12:00:00 AM EDT eCW1 ([facility]) medroxyprogesterone acetate 5 MG Oral Tablet [Provera] 12/19/2020 12:00:00 AM EDT eCW1 ([facility]) medroxyprogesterone acetate 5 MG Oral Tablet [Provera] 12/19/2020 12:00:00 AM EDT eCW1 ([facility]) medroxyprogesterone acetate 5 MG Oral Tablet [Provera] 12/19/2020 12:00:00 AM EDT eCW1 ([facility]) 21 DAY Ethinyl Estradiol 0.313187 MG/HR / Etonogestrel 0.005 MG/HR Vaginal Ring [NuvaRing] 12/18/2020 12:00:00 AM EDT eCW1 ([facility]) 21 DAY Ethinyl Estradiol 0.581284 MG/HR / Etonogestrel 0.005 MG/HR Vaginal Ring [NuvaRing] 12/18/2020 12:00:00 AM EDT eCW1 ([facility]) 21 DAY Ethinyl Estradiol 0.581469 MG/HR / Etonogestrel 0.005 MG/HR Vaginal Ring [NuvaRing] 12/18/2020 12:00:00 AM EDT eCW1 ([facility]) Albuterol Sulfate HFA 108 (90 Base) MCG/ACT 10/17/2020 12:00:00 AM EST eCW1 ([facility]) Albuterol Sulfate HFA 108 (90 Base) MCG/ACT 10/17/2020 12:00:00 AM EST eCW1 ([facility]) Albuterol Sulfate HFA 108 (90 Base) MCG/ACT 10/17/2020 12:00:00 AM EST eCW1 ([facility]) Albuterol Sulfate HFA 108 (90 Base) MCG/ACT 10/17/2020 12:00:00 AM EST eCW1 ([facility]) Sertraline 50 MG Oral Tablet 10/10/2020 12:00:00 AM EST eCW1 ([facility]) Misoprostol 0.2 MG Oral Tablet 09/19/2020 12:00:00 AM EST eCW1 ([facility]) Kyleena 19.5 MG 09/19/2020 12:00:00 AM EST eCW1 ([facility]) Ortho Tri-Cyclen Lo 0.18/0.215/0.25 MG-25 MCG 08/22/2020 12:00:00 A M STANLEY eCW1 ([facility])
[2021-07-24] MEDS ORDERED: SUGAMMADEX SODIUM 500 MG/5 ML VIAL (BRIDION) As Ordered ONE (10:42)
[2021-07-24] MEDS ORDERED: ROCURONIUM BROMIDE 50 MG/5 ML VIAL As Ordered ONE (10:42)
[2021-07-24] MEDS ORDERED: ACETAMINOPHEN 1000MG 100ML IV BTL (OFIRMEV) (J0131 PER 10MG) As Ordered ONE (10:42)
[2021-07-24] MEDS ORDERED: dexameTHASONE 4 MG/ML 1ML VIAL (J1100 PER 1MG) As Ordered ONE (10:42)
[2021-07-24] MEDS ORDERED: propofoL 200 MG/20 ML VIAL As Ordered ONE (10:42)
[2021-07-24] MEDS ORDERED: METOCLOPRAMIDE INJ 10MG/2ML VIAL (J2765 PER 1) As Ordered ONE (10:42)
[2021-07-24] MEDS ORDERED: fentaNYL 100 MCG/2 ML INJECTION (J3010) As Ordered ONE (10:42)
[2021-07-24] MEDS ORDERED: ONDANSETRON 4MG/2ML VIAL As Ordered ONE ×2 (10:42→14:04)
[2021-07-24] MEDS ORDERED: MIDAZOLAM INJ 2MG/2ML VIAL (J2250 PER 1MG) As Ordered ONE (10:42)
[2021-07-24] MEDS ORDERED: LIDOCAINE 2% 100MG/5ML SDV (FOR ANES.) As Ordered ONE (10:42)
[2021-07-24 11:26] LABS: HCG, SERUM QUALITATIVE NEGATIVE (NEGATIVE)
[2021-07-24] MEDS ORDERED: LIDOCAINE 1% SDV 30ML VIAL As Ordered ONE (12:09)
[2021-07-24] MEDS ORDERED: BUPIVACAINE HCL 0.25% 30ML VIAL As Ordered ONE (12:09)
[2021-07-24] MEDS ORDERED: HYDROmorphone HCL 2 MG/ML 1ML VIAL As Ordered ONE (12:59)
[2021-07-24] MEDS ORDERED: KETOROLAC 60MG 2ML VIAL As Ordered ONE (14:08)
[2021-07-24] MEDS ORDERED: ePHEDrine SULFATE 25 MG/5 ML(5MG/ML) SYRINGE As Ordered ONE (14:08)
[2021-07-24] MEDS ORDERED: fentaNYL 100 MCG/2 ML INJECTION (J3010) IV PRN (14:25)
[2021-07-24] MEDS ORDERED: oxyCODONE 5MG TAB PO PRN (14:25)
[2021-07-24] MEDS ORDERED: ONDANSETRON 4MG/2ML VIAL IV PRN (14:25)
[2021-07-24] MEDS ORDERED: LR 1,000 ML IV SCH (14:25)
[2021-07-24 16:40] VITALS: BP 126/63
[2021-07-24] MEDS ORDERED: diphenhydrAMINE 50MG/ML VIAL (J1200) IV ONE (17:25)
--- NOTE | 2021-07-26 09:20 | ROOPDOC ---
[facility] Report Of Operation Report of Operation DATE OF PROCEDURE: 07/24/21 PREPROCEDURE DIAGNOSES: right upper quadrant pain, biliary dyskinesia. POSTPROCEDURE DIAGNOSES: Biliary dyskinesia, chronic cholecystitis. PROCEDURE PERFORMED: Robotic assisted laparoscopic cholecystectomy with use of ICG/firefly for biliary tract identification. SURGEON: Thor Pierson MD, MD [employer]ING MACHINE FEEDER: MD ANESTHESIA: General endotracheal anesthesia. ESTIMATED BLOOD LOSS: Approximately 10 mL. COMPLICATIONS: None. REMARKS: Patient is a 20-year-old female complaining of bouts of nausea, epigastric and right upper quadrant discomfort that usually post prandial. Work-up includes no findings of cholelithiasis on ultrasound and abnormal ejection fraction on HIDA scan consistent with biliary dyskinesia as the cause of her biliary colic attacks. She is brought in today for cholecystectomy. FINDINGS: Moderately distended gallbladder, relatively thin-walled, very small cystic duct. The gallbladder does not illuminate on firefly/near infrared imaging consistent with chronic cholecystitis no palpable stones SPECIMENS REMOVED: Gallbladder DESCRIPTION OF PROCEDURE: Patient was given a dose of Levaquin 500 mg IV preoperatively. 2.5 mg of ICG was given IV in the preop area. He was brought to the operating room, laid supine on the table, compression boots placed for DVT prophylaxis. General endotracheal anesthesia started. His abdomen then prepped and draped in usual sterile fashion. Surgical timeout was performed prior to confirm right procedure, right patient identification and other necessary information prior to starting surgery. Entry into the abdomen done through an incision below and slightly to the left of the umbilical cleft. A Veress needle was inserted with a controlled fashion. CO2 insufflation started to pressure 15 mmHg. Using the same incision an 8 mm robotic trochar was placed under direct vision laparoscope. The area underneath the insertion site was inspected and no injury found. He was then placed on a 10 reverse Trendelenburg, tilted slightly towards the left side. Under direct vision I placed three more 8 mm trochars along a row level to the camera port site. A transversus abdominis plane block was then performed bilaterally using the lidocaine/marcaine mixture under laparoscopic guidance. 20 mLs of the mixture placed on each side. The da Glo robot tower was then maneuvered in place and the trochars docked to the robot. After positioning the instruments inside of the abdomen, and scrubbed in to control of the camera and robotic instruments at the surgeon's console while my assistant foreman remains on the field. Operative findings: Liver is smooth appearing without any noticeable lesions on the surface. Gal lbladder is contracted, moderately thick wall which is chronic. There is moderate amounts of fatty deposition to the hepatocystic triangle. I could make up a moderate-sized stone at the fundus of the gallbladder. On firefly, the liver lights up. The gallbladder does not light up. The common hepatic duct, common bile duct lights up, proximal cystic duct lights up but there is a cut off as it approaches the gallbladder at the proximal third of the cystic duct signifying persistent obstruction at the area.. The gallbladder is retracted superiorly to expose the neck of the gallbladder and hepatocystic triangle. Dissection was done with intermittent use of near infrared light and white light for identification of the relevant biliary ductal structures. The peritoneal covering at the neck of the gallbladder was opened up medially and laterally. The infundibulum is retracted laterally 1 approach to the hepatocystic triangle. The lymph node is identified there is moderate amount of fatty deposition at the hepatocystic triangle which was carefully dissected to expose the duct and artery. I started my hepatocystic triangle dissection. The course of the cystic artery was identified and this was circumferentially dissected. By switching between firefly mode and white light and dissected circumferentially the course of the infundibulum of the gallbladder as well as the cystic duct. The cystic artery and then the cystic duct was circumferentially dissected. The cystic plate at the lower body and neck of the gallbladder was cleared. Dissection performed until there is a critical view of safety achieved with only the cystic duct and artery as the only structures approaching the neck of the gallbladder and clearance of the lower body of the gallbladder from the cystic plate of the liver. (helped with illumination of the duct with firefly mode). I noted that the proximal cystic duct illuminates on firefly but there is a cut off signifying there is a persistent obstruction so I proceeded dissecting more proximally at the cystic duct and there is a stone lodged at the proximal third of the cystic duct. I dissected below this area. At this point the cystic artery was clipped twice and divided. The cystic duct was clipped twice on the down side and once the gallbladder side and this was divided in between the clips. Presence of the stone on the cystic duct confirmed. On firefly mode there was no bile leakage and I could see. The rest of the gallbladder dissected from the liver bed and detached. The gallbladder/liver bed is examined to ensure adequate hemostasis and again switching between the white light and firefly mode look for evidence for leakage and none was found. I scrubbed back in. We then switched to laparoscopy. The gallbladder was placed in an Endo Catch bag and retrieved through the umbilical port site which I did have to enlarge. The fascial defect at the umbilical port site was closed with 0 Vicryl using a Sharif Coreas device in a mattress fashion. A 19 Manuelito drain was threaded through the rightmost lateral port and placed the gallbladder bed for postop monitoring. The abdomen was then deflated all ports removed. The skin incisions were closed with 4-0 Monocryl subcutaneous thickening fashion. The drain was secured to the skin with 2-0 silk. Patient is stable throughout the procedure. Dermabond was used for postoperative dressing. He was promptly awakened, extubated and brought to recovery room in stable condition. Extraction: The gallbladder was extracted through the right most port site inside an Endo Catch bag with minimal enlargement of the tract. The fascia was closed with a running suture of 2 OV lock. The abdomen was then deflated all ports removed. The skin incisions were closed with 4-0 Monocryl subcutaneous thickening fashion. The drain was secured to the skin with 2-0 silk. Patient is stable throughout the procedure. Dermabond was used for postoperative dressing. He was promptly awakened, extubated and brought to recovery room in stable condition. THOR PIERSON MD Jul 26, 2021 09:20
== END 2021-07-24 18:20 | disposition home or self-care (01) ==
LOC: M SDC 10:20
PROVIDERS: ATTEND Surgery
DX: K81.1 Chronic cholecystitis (principal); F41.9 Anxiety disorder, unspecified; F32.9 Major depressive disorder, single episode, unspecified; J45.909 Unspecified asthma, uncomplicated; Z79.899 Other long term (current) drug therapy
CPT/HCPCS: 36415; 47563; 84703; 88304; J0131; J1100; J1170; J1200; J1885; J1956; J2250; J2405; J2765; J3010; Q9968; S2900

== ENCOUNTER → 2021-09-08 | Outpatient (REF) | payer OTHER ==
[~2021-09-08] MED LIST changes: -CelecoXIB 400 MG CAP PO ONE; -INDOCYANINE GREEN 25MG VIAL (IC-GREEN) IV ONE; -LR 1,000 ML IV ONE; -LevoFLOXacin IV 500 MG in IV 1 EA IV ONE
== END ==
LOC: M SFHCPLAZ 13:07
PROVIDERS: ATTEND Nurse Practitioner Adult Health
DX: J02.0 Streptococcal pharyngitis (principal); Z86.16 Personal history of COVID-19

== ENCOUNTER → 2021-11-11 | Outpatient (REF) | payer OTHER ==
[~2021-11-11] MED LIST changes: +OMEP-173; -OMEP-218
== END ==
LOC: M LAB REF 15:30
DX: R30.0 Dysuria (principal)

== ENCOUNTER → 2021-11-13 | Outpatient (CLI) | payer OTHER ==
[2021-11-13 17:04] LABS: BASO # 0.1 10^3/uL (0.0-0.2); BASO % 0.4 % (0.0-1.0); EOS # 0.1 10^3/uL (0.0-0.5); EOS % 0.5 % (0.0-3.0); HEMATOCRIT 41.8 % (36.0-47.0); HEMOGLOBIN 13.6 g/dl (12.0-15.5); LYMPH # 3.5 10^3/uL (1.5-5.0); LYMPH % 28.7 % (24.0-44.0); MEAN CORPUSCULAR HEMOGLOBIN 28.5 pg (27.0-33.0); MEAN CORPUSCULAR HGB CONC 32.5 g/dl (32.0-36.5); MEAN CORPUSCULAR VOLUME 87.4 fl (80.0-96.0); MONO # 0.6 10^3/uL (0.0-0.8); MONO % 4.9 % (2.0-8.0); NEUTROPHILS # 7.9 10^3/uL (1.5-8.5); NEUTROPHILS % 65.3 % (36.0-66.0); PLATELET COUNT, AUTOMATED 376 10^3/uL (150-450); RED BLOOD COUNT 4.78 10^6/uL (4.00-5.40)
[2021-11-13 17:10] LABS: ALBUMIN 3.1 GM/DL (3.2-5.2); ALT/SGPT 25 U/L (12-78); BILIRUBIN,TOTAL 0.3 MG/DL (0.2-1.0); BLOOD UREA NITROGEN 12 MG/DL (7-18); C REACTIVE PROTEIN QUANTITATIV 1.96 MG/DL (0.00-0.30); CALCIUM LEVEL 9.2 MG/DL (8.5-10.1); CARBON DIOXIDE LEVEL 31 MEQ/L (21-32); CHLORIDE LEVEL 110 MEQ/L (98-107); CREATININE FOR GFR 0.83 MG/DL (0.55-1.30); GLUCOSE, FASTING 101 MG/DL (70-100); LIPASE 65 U/L (73-393); POTASSIUM SERUM 4.2 MEQ/L (3.5-5.1); SODIUM LEVEL 141 MEQ/L (136-145); TOTAL PROTEIN 6.7 GM/DL (6.4-8.2)
[2021-11-13 17:15] LABS: MONO REFLEX EBV VCA IgM NEGATIVE (NEGATIVE)
[2021-11-13 17:46] LABS: ERYTHROCYTE SEDIMENTATION RATE 30 mm/hr (0-20)
== END ==
LOC: M PLALAB 14:28
PROVIDERS: ATTEND Physician Assistant
DX: R50.9 Fever, unspecified (principal); M54.6 Pain in thoracic spine; R10.9 Unspecified abdominal pain; R53.81 Other malaise

== ENCOUNTER → 2021-11-14 | Outpatient (CLI) | payer OTHER ==
[~2021-11-14] MED LIST changes: +GASTROGRAFIN SOLUTION 30ML (Q9963) As Ordered ONE; +ISOVUE-370 76% 100ML VIAL As Ordered ONE
== END ==
LOC: M RAD 08:26
PROVIDERS: ATTEND Physician Assistant
DX: R50.9 Fever, unspecified (principal); M54.6 Pain in thoracic spine; R10.9 Unspecified abdominal pain; R53.81 Other malaise
CPT/HCPCS: 74177; Q9963; Q9967

== ENCOUNTER → 2022-01-21 | Outpatient (CLI) | payer OTHER ==
[~2022-01-21] MED LIST changes: -GASTROGRAFIN SOLUTION 30ML (Q9963) As Ordered ONE; -ISOVUE-370 76% 100ML VIAL As Ordered ONE
== END ==
LOC: M WUC 08:56
DX: M25.571 Pain in right ankle and joints of right foot (principal)

== ENCOUNTER → 2022-03-10 | Outpatient (CLI) | payer OTHER ==
[2022-03-10 14:04] LABS: HEMOGLOBIN A1c 4.8 %
== END ==
LOC: M PLALAB 11:04
PROVIDERS: ATTEND Nurse Practitioner Adult Health
DX: R14.0 Abdominal distension (gaseous) (principal); Z68.42 Body mass index [BMI] 45.0-49.9, adult

== ENCOUNTER → 2022-03-16 | Outpatient (CLI) | payer OTHER ==
[2022-03-17 00:40] LABS: HEMOGLOBIN A1c 5.1 %
== END ==
LOC: M PLALAB 10:43
PROVIDERS: ATTEND Nurse Practitioner Adult Health
DX: R14.0 Abdominal distension (gaseous) (principal); Z68.42 Body mass index [BMI] 45.0-49.9, adult; Z91.018 Allergy to other foods

== ENCOUNTER → 2022-05-07 | Outpatient (REF) | payer OTHER | LOC: M SFHCPLAZ 17:17 | PROVIDERS: ATTEND Physician Assistant Medical | DX: R30.0 Dysuria (principal) ==

== ENCOUNTER → 2022-06-01 | Outpatient (REF) | payer OTHER | LOC: M WUC 19:49 | PROVIDERS: ATTEND Physician Assistant | DX: M54.50 Low back pain, unspecified (principal) ==

== ENCOUNTER → 2022-07-03 | Outpatient (CLI) | payer OTHER ==
[2022-07-03 10:34] LABS: HEMATOCRIT 42.6 % (36.0-47.0); HEMOGLOBIN 13.5 g/dl (12.0-15.5); MEAN CORPUSCULAR HEMOGLOBIN 27.6 pg (27.0-33.0); MEAN CORPUSCULAR HGB CONC 31.7 g/dl (32.0-36.5); MEAN CORPUSCULAR VOLUME 87.1 fl (80.0-96.0); PLATELET COUNT, AUTOMATED 330 10^3/uL (150-450); RED BLOOD COUNT 4.89 10^6/uL (4.00-5.40)
[2022-07-03 11:34] LABS: ALBUMIN 3.1 GM/DL (3.2-5.2); BLOOD UREA NITROGEN 10 MG/DL (7-18); CALCIUM LEVEL 8.8 MG/DL (8.5-10.1); CARBON DIOXIDE LEVEL 26 MEQ/L (21-32); CHLORIDE LEVEL 107 MEQ/L (98-107); CREATININE FOR GFR 0.68 MG/DL (0.55-1.30); FERRITIN 59 NG/ML (8-252); FREE T4 1.24 NG/DL (0.78-1.33); GLUCOSE, FASTING 86 MG/DL (70-100); IRON (FE) 48 UG/DL (50-170); PERCENT SATURATION 13.6 % (13.2-45.0); PHOSPHORUS LEVEL 2.8 MG/DL (2.5-4.9); POTASSIUM SERUM 4.5 MEQ/L (3.5-5.1); SODIUM LEVEL 140 MEQ/L (136-145); TOTAL IRON BINDING CAPACITY 352 UG/DL (250-450)
[2022-07-03 12:10] LABS: TOTAL 25(OH) VITAMIN D 24.5 NG/ML (30.0-100.0)
== END ==
LOC: M PLALAB 08:50
PROVIDERS: ATTEND Physician Assistant
DX: I10 Essential (primary) hypertension (principal); R53.83 Other fatigue; D50.9 Iron deficiency anemia, unspecified; E55.9 Vitamin D deficiency, unspecified

== ENCOUNTER → 2022-09-02 | Outpatient (REF) | payer OTHER ==
[2022-09-03 11:54] LABS: GC DNA AMPLIFICATION NEGATIVE (NEGATIVE)
== END ==
LOC: M LAB REF 09:19
PROVIDERS: ATTEND Physician Assistant
DX: R30.0 Dysuria (principal)

== ENCOUNTER → 2022-09-04 | Outpatient (REF) | payer OTHER ==
[2022-09-04 18:05] LABS: APPEARANCE, URINE MANUAL CLOUDY (CLEAR); BILIRUBIN, URINE MANUAL NEGATIVE (NEGATIVE); BLOOD URINE MANUAL POSITIVE (NEGATIVE); COLOR, URINE MANUAL YELLOW (YELLOW); GLUCOSE, URINE (UA) MANUAL NEGATIVE (NEGATIVE); KETONE, URINE MANUAL NEGATIVE (NEGATIVE); LEUKOCYTE ESTERASE, URINE MAN TRACE (NEGATIVE); NITRITE, URINE MANUAL NEGATIVE (NEGATIVE); PH,URINE MAN 5.5 UNITS (5.0 - 7.0); PROTEIN, URINE MANUAL NEGATIVE (NEGATIVE); UROBILINOGEN, URINE MANUAL NORMAL (NORMAL)
[2022-09-04 18:47] LABS: BACTERIA, URINE MOD AMOUNT; HYALINE CAST, URINE NONE SEEN /lpf (0-1); MUCUS, URINE MOD AMOUNT (NEGATIVE); RBC, URINE 20-30 /hpf (0-3); SQUAMOUS EPITHELIAL CELL URINE LARGE AMOUNT /hpf (SMALL AMT)
== END ==
LOC: M LAB REF 16:47
PROVIDERS: ATTEND Physician Assistant
DX: R30.0 Dysuria (principal)

== ENCOUNTER → 2022-09-16 | Outpatient (CLI) | payer OTHER | LOC: M RAD 07:07 | PROVIDERS: ATTEND Physician Assistant | DX: R10.9 Unspecified abdominal pain (principal); R14.0 Abdominal distension (gaseous) ==

== ENCOUNTER → 2022-11-19 | Outpatient (REF) | payer OTHER | LOC: M WUC 09:11 | PROVIDERS: ATTEND Student in an Organized Health Care Education/Training Program | DX: J02.9 Acute pharyngitis, unspecified (principal) ==

== ENCOUNTER → 2022-11-24 | Outpatient (REF) | payer OTHER ==
[~2022-11-24] MED LIST changes: +MACR100C43 PO; +SERT50TA29 PO
== END ==
LOC: M SFHCWAGY 10:41
PROVIDERS: ATTEND Nurse Practitioner Family
DX: Z12.4 Encounter for screening for malignant neoplasm of cervix (principal)

== ENCOUNTER 2022-12-10 02:02 | Emergency (ER) | payer OTHER ==
[~2022-12-10] VITALS: Ht 157.5 cm; Wt 106.5 kg
[~2022-12-10 02:02] MED LIST changes: -MACR100C43 PO; -SERT50TA29 PO
[2022-12-10] MEDS ORDERED: SERT50TA29 PO (02:10)
[2022-12-10 03:42] LABS: BASO % 0.3 % (0.0-1.0); EOS # 0.1 10^3/uL (0.0-0.5); EOS % 0.9 % (0.0-3.0); HEMATOCRIT 40.5 % (36.0-47.0); HEMOGLOBIN 13.6 g/dl (12.0-15.5); LYMPH # 3.3 10^3/uL (1.5-5.0); MEAN CORPUSCULAR HEMOGLOBIN 28.7 pg (27.0-33.0); MEAN CORPUSCULAR HGB CONC 33.6 g/dl (32.0-36.5); MEAN CORPUSCULAR VOLUME 85.4 fl (80.0-96.0); MONO # 0.6 10^3/uL (0.0-0.8); MONO % 5.9 % (2.0-8.0); NEUTROPHILS % 59.6 % (36.0-66.0); PLATELET COUNT, AUTOMATED 360 10^3/uL (150-450); RED BLOOD COUNT 4.74 10^6/uL (4.00-5.40)
[2022-12-10 04:04] LABS: LIPASE 34 U/L (12-53)
[2022-12-10 04:06] LABS: ALKALINE PHOSPHATASE 108 U/L (46-116); ALT/SGPT 14 U/L (7.0-40); AST/SGOT 10 U/L (<34); BILIRUBIN,DIRECT < 0.1 MG/DL (<0.4); BILIRUBIN,TOTAL 0.2 MG/DL (0.3-1.2); BLOOD UREA NITROGEN 13 MG/DL (9-23); CALCIUM LEVEL 8.5 MG/DL (8.5-10.1); CARBON DIOXIDE LEVEL 22 MMOL/L (20-31); CHLORIDE LEVEL 110 MMOL/L (98-107); CREATININE FOR GFR 0.67 MG/DL (0.55-1.30); GLOMERULAR FILTRATION RATE > 60.0 (>60); GLUCOSE, FASTING 93 MG/DL (60-100); POTASSIUM SERUM 4.1 MMOL/L (3.5-5.1); SODIUM LEVEL 140 MMOL/L (136-145); TOTAL PROTEIN 6.5 G/DL (5.7-8.2)
[2022-12-10 04:21] LABS: HCG, SERUM QUALITATIVE NEGATIVE (NEGATIVE)
[2022-12-10 04:28] LABS: INR 0.92; PROTHROMBIN TIME 12.6 SECONDS (12.5-14.5)
[2022-12-10] MEDS ORDERED: ONDANSETRON 4MG ORAL DISINTEGRATING TAB PO ONE (06:35)
[2022-12-10] MEDS ORDERED: NS 1,000 ML IV ONE (07:50)
[2022-12-10] MEDS ORDERED: KETOROLAC 30 MG/ML 1ML VIAL IV ONE (07:50)
[2022-12-10] MEDS ORDERED: ISOVUE-370 76% 100ML VIAL As Ordered ONE (08:15)
[2022-12-10] MEDS ORDERED: MACR100C43 PO (10:35)
[2022-12-10 10:40] VITALS: BP 138/73
== END 2022-12-10 10:42 | disposition home or self-care (01) ==
LOC: M ED 02:02
DX: N39.0 Urinary tract infection, site not specified (principal); J45.909 Unspecified asthma, uncomplicated; F41.9 Anxiety disorder, unspecified; F32.9 Major depressive disorder, single episode, unspecified; Z79.899 Other long term (current) drug therapy; Z88.0 Allergy status to penicillin
CPT/HCPCS: 74177; 76856; 80048; 80076; 81001; 83690; 84703; 85025; 85610; 87086; 93976; 96374; 99284; J1885; Q9967

== ENCOUNTER → 2023-02-23 | Outpatient (CLI) | payer OTHER ==
[~2023-02-23] MED LIST changes: +MACR100C43 PO; +SERT50TA29 PO
== END ==
LOC: M RAD 14:43
PROVIDERS: ATTEND Physician Assistant
DX: N39.0 Urinary tract infection, site not specified (principal)

== ENCOUNTER → 2023-04-01 | Outpatient (CLI) | payer OTHER | LOC: M RAD 12:21 | PROVIDERS: ATTEND Nurse Practitioner Adult Health | DX: J18.8 Other pneumonia, unspecified organism (principal) ==

== ENCOUNTER → 2023-04-06 | Outpatient (REF) | payer OTHER | LOC: M LAB REF 21:26 | PROVIDERS: ATTEND Physician Assistant Medical | DX: B34.9 Viral infection, unspecified (principal) ==

== ENCOUNTER → 2023-06-17 | Outpatient (CLI) | payer OTHER ==
[2023-06-17 12:49] LABS: HEMATOCRIT 42.2 % (36.0-47.0); HEMOGLOBIN 13.6 g/dl (12.0-15.5); MEAN CORPUSCULAR HGB CONC 32.2 g/dl (32.0-36.5); PLATELET COUNT, AUTOMATED 367 10^3/uL (150-450); RED BLOOD COUNT 4.85 10^6/uL (4.00-5.40); WHITE BLOOD COUNT 10.8 10^3/uL (4.0-10.0)
[2023-06-17 13:07] LABS: HEMOGLOBIN A1c 4.9 % (4.0-6.0)
[2023-06-17 13:24] LABS: ALBUMIN 3.3 G/DL (3.2-5.2); ALKALINE PHOSPHATASE 127 U/L (46-116); ALT/SGPT 27 U/L (7.0-40); AST/SGOT 16 U/L (<34); BILIRUBIN,TOTAL 0.4 MG/DL (0.3-1.2); BLOOD UREA NITROGEN 11 MG/DL (9-23); CALCIUM LEVEL 9.1 MG/DL (8.5-10.1); CARBON DIOXIDE LEVEL 27 MMOL/L (20-31); CHLORIDE LEVEL 106 MMOL/L (98-107); GLOMERULAR FILTRATION RATE > 60.0 (>60); GLUCOSE, FASTING 79 MG/DL (60-100); HCG, SERUM QUANTITATIVE < 2.6 MIU/ML (<4.2); IRON (FE) 45 UG/DL (50-170); PERCENT SATURATION 13.7 % (13.2-45.0); POTASSIUM SERUM 4.5 MMOL/L (3.5-5.1); SODIUM LEVEL 140 MMOL/L (136-145); TOTAL IRON BINDING CAPACITY 329 UG/DL (250-425); TOTAL PROTEIN 6.8 G/DL (5.7-8.2)
[2023-06-17 13:27] LABS: THYROID STIMULATING HORMONE 1.237 uIU/ML (0.55-4.78); THYROXINE (T4) 9.6 UG/DL (4.5-10.9)
[2023-06-17 13:28] LABS: FREE THYROXINE INDEX 3.7 % (1.3-4.8); T UPTAKE 38.3 % (22.5-37.0)
== END ==
LOC: M EKG 11:31
PROVIDERS: ATTEND Physician Assistant
DX: R00.2 Palpitations (principal)

== ENCOUNTER → 2023-07-14 | Outpatient (CLI) | payer OTHER ==
[2023-07-14 13:12] LABS: CHLAMYDIA DNA AMPLIFICATION NEGATIVE (NEGATIVE); GC DNA AMPLIFICATION NEGATIVE (NEGATIVE)
[2023-07-14 14:39] LABS: HCG, SERUM QUALITATIVE NEGATIVE (NEGATIVE); THYROID STIMULATING HORMONE 1.268 uIU/ML (0.55-4.78)
[2023-07-14 14:40] LABS: FREE T4 1.06 NG/DL (0.89-1.76)
[2023-07-14 14:42] LABS: HEMOGLOBIN A1c 4.7 % (4.0-6.0)
== END ==
LOC: M PLALAB 08:59
PROVIDERS: ATTEND Nurse Practitioner Family
DX: N91.2 Amenorrhea, unspecified (principal); N73.9 Female pelvic inflammatory disease, unspecified

== ENCOUNTER → 2023-07-15 | Outpatient (REF) | payer OTHER ==
[2023-07-15 16:33] LABS: APPEARANCE, URINE CLOUDY (CLEAR); BACTERIA, URINE AUTO 1+ (NEGATIVE); BILIRUBIN, URINE AUTO NEGATIVE (NEGATIVE); BLOOD, URINE BLOOD 2+ (NEGATIVE); CALCIUM OXALATE CRYSTALS MODERATE; COLOR, URINE AMBER (YELLOW); GLUCOSE, URINE (UA) AUTO NEGATIVE (NEGATIVE); KETONE, URINE AUTO NEGATIVE (NEGATIVE); LEUKOCYTE ESTERASE, URINE AUTO 2+ (NEGATIVE); MUCUS, URINE LARGE (NEGATIVE); NITRITE, URINE AUTO POSITIVE (NEGATIVE); PROTEIN, URINE AUTO NEGATIVE (NEGATIVE); RBC, URINE AUTO 7 /HPF (0-3); SPECIFIC GRAVITY URINE AUTO 1.028 (1.002-1.035); SQUAMOUS EPITHELIAL CELL UR AU 10 /HPF (0-6); WBC, URINE AUTO 10 /HPF (0-3)
== END ==
LOC: M SMT 15:25
PROVIDERS: ATTEND Physician Assistant
DX: R30.0 Dysuria (principal)

== ENCOUNTER → 2023-07-22 | Outpatient (CLI) | payer OTHER | LOC: M WHC 07:15 | PROVIDERS: ATTEND Nurse Practitioner Family | DX: N83.202 Unspecified ovarian cyst, left side (principal) ==

== ENCOUNTER → 2023-10-20 | Outpatient (REF) | payer OTHER ==
[2023-10-20 17:30] LABS: APPEARANCE, URINE HAZY (CLEAR); BACTERIA, URINE AUTO NEGATIVE (NEGATIVE); BILIRUBIN, URINE AUTO NEGATIVE (NEGATIVE); BLOOD, URINE BLOOD NEGATIVE (NEGATIVE); COLOR, URINE YELLOW (YELLOW); GLUCOSE, URINE (UA) AUTO NEGATIVE (NEGATIVE); KETONE, URINE AUTO NEGATIVE (NEGATIVE); LEUKOCYTE ESTERASE, URINE AUTO 2+ (NEGATIVE); MUCUS, URINE SMALL (NEGATIVE); NITRITE, URINE AUTO NEGATIVE (NEGATIVE); PROTEIN, URINE AUTO NEGATIVE (NEGATIVE); RBC, URINE AUTO 0 /HPF (0-3); SPECIFIC GRAVITY URINE AUTO 1.027 (1.002-1.035); SQUAMOUS EPITHELIAL CELL UR AU 9 /HPF (0-6); WBC, URINE AUTO 27 /HPF (0-3)
== END ==
LOC: M SMT 16:53
PROVIDERS: ATTEND Physician Assistant
DX: R30.0 Dysuria (principal)

== ENCOUNTER → 2023-11-23 | Outpatient (CLI) | payer OTHER ==
[2023-11-23 15:59] LABS: BASO % 0.3 % (0.0-1.0); EOS # 0.1 10^3/uL (0.0-0.5); EOS % 0.9 % (0.0-3.0); HEMATOCRIT 41.6 % (36.0-47.0); HEMOGLOBIN 13.4 g/dl (12.0-15.5); LYMPH % 29.3 % (24.0-44.0); MEAN CORPUSCULAR HEMOGLOBIN 28.1 pg (27.0-33.0); MEAN CORPUSCULAR HGB CONC 32.2 g/dl (32.0-36.5); MEAN CORPUSCULAR VOLUME 87.2 fl (80.0-96.0); MONO # 0.5 10^3/uL (0.0-0.8); MONO % 5.1 % (2.0-8.0); NEUTROPHILS # 6.6 10^3/uL (1.5-8.5); NEUTROPHILS % 64.1 % (36.0-66.0); PLATELET COUNT, AUTOMATED 352 10^3/uL (150-450); RED BLOOD COUNT 4.77 10^6/uL (4.00-5.40); WHITE BLOOD COUNT 10.3 10^3/uL (4.0-10.0)
[2023-11-23 16:13] LABS: HEMOGLOBIN A1c 4.9 % (4.0-6.0)
[2023-11-23 16:24] LABS: TOTAL IRON BINDING CAPACITY 306 UG/DL (250-425)
[2023-11-23 16:25] LABS: IRON (FE) 40 UG/DL (50-170); PERCENT SATURATION 13.1 % (13.2-45.0)
[2023-11-23 16:29] LABS: THYROID STIMULATING HORMONE 1.026 uIU/ML (0.55-4.78)
[2023-11-23 16:30] LABS: FERRITIN 27.6 NG/ML (7.3-270.7)
[2023-11-23 16:31] LABS: FREE T4 1.12 NG/DL (0.89-1.76)
[2023-11-23 16:52] LABS: ALBUMIN 3.4 G/DL (3.2-5.2); ALKALINE PHOSPHATASE 128 U/L (46-116); ALT/SGPT 13 U/L (7.0-40); AST/SGOT 10 U/L (<34); BILIRUBIN,TOTAL 0.4 MG/DL (0.3-1.2); BLOOD UREA NITROGEN 13 MG/DL (9-23); CARBON DIOXIDE LEVEL 28 MMOL/L (20-31); CHLORIDE LEVEL 108 MMOL/L (98-107); CHOLESTEROL LEVEL 130 MG/DL (<200); CHOLESTEROL RISK RATIO 3.11 (<5); CREATININE FOR GFR 0.64 MG/DL (0.55-1.30); GLOMERULAR FILTRATION RATE > 60.0 (>60); GLUCOSE, FASTING 76 MG/DL (60-100); HDL CHOLESTEROL 41.7 MG/DL (>40); LDL CHOLESTEROL 73.1 MG/DL (<100); NON-HDL-C 88.3 MG/DL; POTASSIUM SERUM 4.8 MMOL/L (3.5-5.1); SODIUM LEVEL 141 MMOL/L (136-145); TOTAL PROTEIN 6.8 G/DL (5.7-8.2); TRIGLYCERIDES LEVEL 76 MG/DL (<150)
== END ==
LOC: M PLALAB 13:19
PROVIDERS: ATTEND Nurse Practitioner Adult Health
DX: F41.9 Anxiety disorder, unspecified (principal); E66.9 Obesity, unspecified; J45.909 Unspecified asthma, uncomplicated; R53.83 Other fatigue; Z79.899 Other long term (current) drug therapy

== ENCOUNTER → 2024-07-19 | Outpatient (CLI) | payer OTHER ==
[~2024-07-19] MED LIST changes: +FLUO-365; -FLUO20CA22
[2024-07-19 15:36] LABS: IRON (FE) 62 UG/DL (50-170)
[2024-07-19 15:38] LABS: FERRITIN 23.9 NG/ML (7.3-270.7); FOLATE 6.63 NG/ML (>5.4)
[2024-07-19 15:39] LABS: VITAMIN B12 LEVEL 364 PG/ML (211-911)
[2024-07-19 15:41] LABS: PERCENT SATURATION 19.4 % (13.2-45.0); TOTAL IRON BINDING CAPACITY 319 UG/DL (250-425)
[2024-07-19 15:52] LABS: MONO SCRN NEGATIVE (NEGATIVE)
[2024-07-19 16:09] LABS: HIV 1&2 SCREEN NEGATIVE (NEGATIVE)
[2024-07-21 09:17] LABS: T P ELECTROPHORESIS SO 6.6 g/dL (6.1-8.1)
== END ==
LOC: M PLALAB 11:49
PROVIDERS: ATTEND Physician Assistant
DX: R53.83 Other fatigue (principal)

== ENCOUNTER → 2024-07-28 | Outpatient (REF) | payer OTHER ==
[2024-07-28 18:01] LABS: AMORPHOUS SEDIMENT SMALL (NEGATIVE); APPEARANCE, URINE HAZY (CLEAR); BACTERIA, URINE AUTO NEGATIVE (NEGATIVE); BILIRUBIN, URINE AUTO NEGATIVE (NEGATIVE); BLOOD, URINE BLOOD 2+ (NEGATIVE); COLOR, URINE YELLOW (YELLOW); GLUCOSE, URINE (UA) AUTO NEGATIVE (NEGATIVE); KETONE, URINE AUTO NEGATIVE (NEGATIVE); LEUKOCYTE ESTERASE, URINE AUTO NEGATIVE (NEGATIVE); MUCUS, URINE SMALL (NEGATIVE); NITRITE, URINE AUTO NEGATIVE (NEGATIVE); PROTEIN, URINE AUTO NEGATIVE (NEGATIVE); RBC, URINE AUTO 0 /HPF (0-3); SPECIFIC GRAVITY URINE AUTO 1.023 (1.002-1.035); SQUAMOUS EPITHELIAL CELL UR AU 1 /HPF (0-6); UROBILINOGEN, URINE AUTO 0.2 mg/dL (0.0-2.0); WBC, URINE AUTO 1 /HPF (0-3)
== END ==
LOC: M LAB REF 16:49
PROVIDERS: ATTEND Physician Assistant
DX: R79.82 Elevated C-reactive protein (CRP) (principal)

== ENCOUNTER → 2024-12-19 | Outpatient (REF) | payer OTHER ==
[~2024-12-19] MED LIST changes: +BUSP5TA
== END ==
LOC: M SFHCWAGY 15:08
PROVIDERS: ATTEND Nurse Practitioner Family
DX: Z12.4 Encounter for screening for malignant neoplasm of cervix (principal); R87.615 Unsatisfactory cytologic smear of cervix

== ENCOUNTER → 2025-06-21 | Outpatient (CLI) | payer OTHER | LOC: M PLALAB 15:55 | PROVIDERS: ATTEND Pediatrics | DX: N91.2 Amenorrhea, unspecified (principal) ==

== ENCOUNTER → 2025-08-14 | Outpatient (CLI) | payer OTHER | LOC: M PLAIMG 10:03 | PROVIDERS: ATTEND Physician Assistant | DX: R10.A1 Flank pain, right side (principal) ==